=== PATIENT | male | born 1975 | race Two or more races ===

== ENCOUNTER 2019-05-22 18:23 | Inpatient (IN) | payer OTHER, MEDICAID ==
[~2019-05-22] VITALS: Ht 177.8 cm; Wt 62.8 kg
[~2019-05-22 18:23] MED LIST: Amikacin 950 MG in NS 110 ML IV SCH
[2019-05-22 18:25] VITALS: BP 80/40
[2019-05-22] MEDS ORDERED: OMEPRAZOLE40 M1 ORAL (18:40)
[2019-05-22] MEDS ORDERED: HALOPERIDOL5 MG ORAL (18:40)
[2019-05-22] MEDS ORDERED: BENZTROPINE ME0.5 MG PO (18:40)
[2019-05-22] MEDS ORDERED: FERROUS SULFAT325 MG ORAL (18:40)
[2019-05-22] MEDS ORDERED: ZYPREXA10 MG ORAL (18:40)
[2019-05-22] MEDS ORDERED: BACLOFEN10 MG ORAL (18:40)
[2019-05-22] MEDS ORDERED: ATIVAN0.5 MG ORAL (18:40)
[2019-05-22] MEDS ORDERED: Piperacillin/Tazobactam 3.375 GM in NS 110 ML IVPB ONE (18:45)
[2019-05-22 18:57] LABS: HEMATOCRIT 30.9 % (42.0-52.0); HEMOGLOBIN 10.6 G/DL (14.2-18.0); MEAN CORPUSCULAR VOLUME 91 FL (80-99); PLATELET COUNT 90 K/UL (150-450); RED BLOOD COUNT 3.38 M/UL (4.70-6.10); RED CELL DISTRIBUTION WIDTH 15.1 % (11.6-14.8); WHITE BLOOD COUNT 12.8 K/UL (4.8-10.8)
[2019-05-22 19:03] LABS: ANION GAP 10 mmol/L (5-15); BLOOD UREA NITROGEN 15 mg/dL (7-18); CALCIUM 8.1 MG/DL (8.5-10.1); CARBON DIOXIDE 24 MMOL/L (21-32); CHLORIDE 103 MMOL/L (98-107); CREATININE 1.4 MG/DL (0.55-1.30); POTASSIUM 3.4 MMOL/L (3.5-5.1); SODIUM 137 MMOL/L (136-145)
--- NOTE | 2019-05-22 19:08 | Diagnostic Imaging Report ---
Indications: Syncope, headache Technique: Spiral acquisitions obtained through the brain. Angled axial and coronal 5 x 5 mm slices were reconstructed. Total dose length product 1304 mGycm. CTDI vol(s) 6 mGy. Dose reduction achieved using automated exposure control Comparison: None. Findings: No acute intracranial hemorrhage or edema. No mass effect nor midline shift. Normal curyr-white differentiation. Normal size ventricles and extra-axial CSF spaces. The calvarium is intact. There is right ethmoid and bilateral sphenoid sinus disease. The mastoids are clear. Skin bashir overlie the right posterior parietal scalp. The visualized orbits are unremarkable. Impression: Evidence of right parietal scalp laceration Negative for acute intracranial bleed or mass effect Sinus disease This agrees with the preliminary interpretation provided overnight by [facility]. The CT scanner at [facility] is accredited by the [employer] and the scans are performed using protocols designed to limit radiation exposure to as low as reasonably achievable to attain images of sufficient resolution adequate for diagnostic evaluation.
[2019-05-22 19:09] LABS: INR 1.1 (0.9-1.1)
[2019-05-22 19:12] LABS: ALANINE AMINOTRANSFERASE 15 U/L (12-78); ALBUMIN 3.2 G/DL (3.4-5.0); ALBUMIN/GLOBULIN RATIO 0.8 (1.0-2.7); ALKALINE PHOSPHATASE 74 U/L (46-116); ASPARTATE AMINO TRANSFERASE 16 U/L (15-37); BILIRUBIN,TOTAL 1.2 MG/DL (0.2-1.0)
[2019-05-22 19:14] LABS: CREATINE KINASE 46 U/L (26-308)
[2019-05-22 19:23] LABS: BILIRUBIN,DIRECT 0.3 MG/DL (0.0-0.3)
--- NOTE | 2019-05-22 20:12 | Emergency Room Report ---
History of Present Illness General Chief Complaint: Fever Source: Patient (Celsa Wiggins) Present Illness HPI 44-year-old male with history of schizophrenia currently living in assisted living brought in by paramedics due to 2 episodes of syncope today and 1 week prior, fever of 103 F, tachycardia. According to the paramedics patient started wandering around and walking to the street from assisted living earlier today were police officers were called in and asked to call the paramedics and bring the patient into the hospital due to syncope, elevated temperature, tachycardia. Patient has not communicate well when asked questions and is not a good historian. Diaphoresis noted. No obvious wounds or signs of trauma noted. (Celsa Wiggins) Allergies: Coded Allergies: No Known Allergies (Unverified , 05/22/19) Patient History Past Medical History: see triage record Past Surgical History: unable to obtain Pertinent Family History: unable to obtain Immunizations: UTD Reviewed Nursing Documentation: PMH: Agreed; PSxH: Agreed (Celsa Wiggins) Nursing Documentation-PMH Past Medical History: No History, Except For History Of Psychiatric Problem: Yes (Celsa Wiggins) Review of Systems All Other Systems: negative except mentioned in HPI (Celsa Wiggins) Physical Exam Vital Signs Date Time Temp Pulse Resp B/P (MAP) Pulse Ox O2 Delivery O2 Flow Rate FiO2 05/22/19 18:16 103.1 130 20 80/40 (53) 98 Room Air Sp02 EP Interpretation: abnormal - Temperature 103 F, heart rate 130 General Appearance: alert, moderate distress, thin Head: normocephalic, atraumatic Eyes: bilateral eye normal inspection, bilateral eye PERRL ENT: hearing grossly normal, normal pharynx, no angioedema, normal voice Neck: full range of motion, supple, no meningismus, supple/symm/no masses Respiratory: chest non-tender, lungs clear, normal breath sounds, no rhonchi, no wheezing, speaking full sentences Cardiovascular #1: no murmur, normal capillary refill, tachycardia Cardiovascular #2: 2+ carotid (R), 2+ carotid (L); 3+ radial (R), 3+ radial (L) Gastrointestinal: normal bowel sounds, non tender, soft, non-distended, no guarding, no rebound Rectal: deferred Genitourinary: normal inspection, no CVA tenderness Musculoskeletal: back normal, digits/nails normal, no calf tenderness Neurologic: alert, oriented Psychiatric: anxious Skin: no rash, normal color, diaphoresis Lymphatic: no adenopathy (Celsa Wiggins) Procedures Critical Care Time Critical Care Time Patient had a critical medical condition which untreated could potentially result in life or limb threatening injury. Total critical care time excluding procedures approximately 45 minutes. (Xavi Fernandez MD) Central Line Central Line : Consent: Emergent Central Line Lumen: triple Maximal Sterile Barrier Tech: yes cap, yes mask, yes sterile gown, yes sterile gloves, yes large sterile sheet, yes hand hygiene, yes chlorhexidine prep Central Line Postion: internal jugular (R) Anesthesia: Lidocaine cc's of anesthesia: 3 Complications: none Central Line Post Position: sutured, good blood return, position confirmed w / CXR Attempts: One Patient Tolerated: Well Complications: None (Xavi Fernandez MD) Medical Decision Making PA Attestation All my diagnosis and treatment plans were reviewed ad discussed with my supervising physician Dr. Fernandez (Celsa Wiggins) Diagnostic Impression: Primary Impression: Sepsis Additional Impressions: Syncope Tachycardia ER Course 44-year-old male with history of schizophrenia currently living in assisted living brought in by paramedics due to 2 episodes of syncope today and 1 week prior, fever of 103 F, tachycardia. According to the paramedics patient started wandering around and walking to the street from assisted living earlier today were police officers were called in and asked to call the paramedics and bring the patient into the hospital due to syncope, elevated temperature, tachycardia. Patient has not communicate well when asked questions and is not a good historian. Diaphoresis noted. No obvious wounds or signs of trauma noted. Ddx considered but are not limited to: [place], sepsis, tachycardia unspecified, syncope, pneumonia Vital signs: are WNL, pt. is febrile H&PE are most consistent with tachycardia and sepsis ORDERS: EKG, Chest XR, cardiac labs(troponin, CBC, CMP,, BNP) ED INTERVENTIONS: 2 L of NS bolus, Motrin, Zosyn Patient was admitted with diagnosis of tachycardia/sepsis/syncope to Dr. Nunn under supervision of : Jim pt stable at time of admission (Celsa Wiggins) ER Course Patient was noted to have a sepsis without any definite source. Chest x-ray showed some evidence of Right upper lobe atelectasis and possible infiltrate. Patient was given empiric antibiotics. Dr. Junior nunn was contacted for inpatient management due to continued hypotension and need for further ICU management. Labs Test 05/22/19 18:26 05/22/19 18:33 05/22/19 21:46 05/22/19 22:00 Sodium Level 137 MMOL/L (136-145) Potassium Level 3.4 MMOL/L (3.5-5.1) Chloride Level 103 MMOL/L (98-107) Carbon Dioxide Level 24 MMOL/L (21-32) Anion Gap 10 mmol/L (5-15) Blood Urea Nitrogen 15 mg/dL (7-18) Creatinine 1.4 MG/DL (0.55-1.30) Estimat Glomerular Filtration Rate 54.6 mL/min (>60) Glucose Level 111 MG/DL (74-106) Calcium Level 8.1 MG/DL (8.5-10.1) Total Bilirubin 1.2 MG/DL (0.2-1.0) Direct Bilirubin 0.3 MG/DL (0.0-0.3) Aspartate Amino Transf (AST/SGOT) 16 U/L (15-37) Alanine Aminotransferase (ALT/SGPT) 15 U/L (12-78) Alkaline Phosphatase 74 U/L (46-116) Total Protein 7.0 G/DL (6.4-8.2) Albumin 3.2 G/DL (3.4-5.0) Globulin 3.8 g/dL Albumin/Globulin Ratio 0.8 (1.0-2.7) White Blood Count 12.8 K/UL (4.8-10.8) Red Blood Count 3.38 M/UL (4.70-6.10) Hemoglobin 10.6 G/DL (14.2-18.0) Hematocrit 30.9 % (42.0-52.0) Mean Corpuscular Volume 91 FL (80-99) Mean Corpuscular Hemoglobin 31.4 PG (27.0-31.0) Mean Corpuscular Hemoglobin Concent 34.4 G/DL (32.0-36.0) Red Cell Distribution Width 15.1 % (11.6-14.8) Platelet Count 90 K/UL (150-450) Mean Platelet Volume 8.3 FL (6.5-10.1) Neutrophils (%) (Auto) % (45.0-75.0) Lymphocytes (%) (Auto) % (20.0-45.0) Monocytes (%) (Auto) % (1.0-10.0) Eosinophils (%) (Auto) % (0.0-3.0) Basophils (%) (Auto) % (0.0-2.0) Differential Total Cells Counted 100 Neutrophils % (Manual) 79 % (45-75) Lymphocytes % (Manual) 13 % (20-45) Monocytes % (Manual) 1 % (1-10) Eosinophils % (Manual) 0 % (0-3) Basophils % (Manual) 1 % (0-2) Band Neutrophils 6 % (0-8) Platelet Estimate Decreased Platelet Morphology Normal Hypochromasia 1+ Anisocytosis 1+ Prothrombin Time 11.6 SEC (9.30-11.50) Prothromb Time International Ratio 1.1 (0.9-1.1) Activated Partial Thromboplast Time 31 SEC (23-33) Total Creatine Kinase 46 U/L (26-308) Troponin I 0.000 ng/mL (0.000-0.056) Pro-B-Type Natriuretic Peptide 1128 pg/mL (0-125) Urine Color Yellow Urine Appearance Slightly cloudy Urine pH 7 (4.5-8.0) Urine Specific [place] 1.005 (1.005-1.035) Urine Protein 1+ (NEGATIVE) Urine Glucose (UA) Negative (NEGATIVE) Urine Ketones Negative (NEGATIVE) Urine Blood Negative (NEGATIVE) Urine Nitrite Negative (NEGATIVE) Urine Bilirubin Negative (NEGATIVE) Urine Urobilinogen 1 MG/DL (0.0-1.0) Urine Leukocyte Esterase 1+ (NEGATIVE) Urine RBC 0-2 /HPF (0 - 0) Urine WBC 10-15 /HPF (0 - 0) Urine Squamous Epithelial Cells Occasional /LPF Urine Bacteria Many /HPF (NONE) Urine Opiates Screen Negative (NEGATIVE) Urine Barbiturates Screen Negative (NEGATIVE) Phencyclidine (PCP) Screen Negative (NEGATIVE) Urine Amphetamines Screen Negative (NEGATIVE) Urine Benzodiazepines Screen Negative (NEGATIVE) Urine Cocaine Screen Negative (NEGATIVE) Urine Marijuana (THC) Screen Negative (NEGATIVE) Lactic Acid Level 1.90 mmol/L (0.66-2.22) (Xavi Fernandez MD) EKG Diagnostic Results Rate: tachycardiac Rhythm: other - tachy ST Segments: no acute changes Other Impression No acute ST changes, no QT prolongation (Celsa Wiggins) Chest X-Ray Diagnostic Results Chest X-Ray Diagnostic Results : Chest X-Ray Ordered: Yes # of Views/Limited/Complete: 1 View Indication: Shortness of Breath EP Interpretation: Yes PA Xray: Interpretation reviewed, by supervising MD, and agrees with findings. Interpretation: no consolidation, no effusion, no pneumothorax Impression: No acute disease Electronically Signed by: Celsa Grossman PA-C (Celsa Wiggins) CT/MRI/US Diagnostic Results CT/MRI/US Diagnostic Results : Imaging Test Ordered: Head CT no contrast Impression No intracranial hemorrhage, within normal limits (Celsa Wiggins) Last Vital Signs Date Time Temp Pulse Resp B/P (MAP) Pulse Ox O2 Delivery O2 Flow Rate FiO2 05/22/19 18:25 130 20 Room Air 05/22/19 18:25 102.8 80/40 98 (Celsa Wiggins) Status: unchanged (Xavi Fernandez MD) Disposition: ADMITTED INPATIENT Condition: Critical Referrals: NOT CHOSEN IPA/,REFERRING (PCP) Celsa Wiggins May 22, 2019 20:12 Xavi Fernandez MD May 22, 2019 22:55
[2019-05-22 21:20] VITALS: BP 81/44
[2019-05-22 22:00] LABS: BILIRUBIN, URINE NEGATIVE (NEGATIVE); GLUCOSE, URINE (UA) NEGATIVE (NEGATIVE); KETONES,URINE NEGATIVE (NEGATIVE); LEUKOCYTE ESTERASE ,URINE 1+ (NEGATIVE); NITRITE,URINE NEGATIVE (NEGATIVE); PH,URINE 7 (4.5-8.0); PROTEIN,URINE 1+ (NEGATIVE); UROBILINOGEN,URINE 1 MG/DL (0.0-1.0)
[2019-05-22 22:01] LABS: APPEARANCE,URINE SLIGHTLY CLOUDY; COLOR,URINE YELLOW
[2019-05-22] MEDS ORDERED: Hydrocortisone 100mg Inj IV ONE (22:15)
[2019-05-22] MEDS ORDERED: Thiamine HCl 100 MG in D5W 55 ML IVPB ONE (22:15)
[2019-05-22] MEDS ORDERED: Lidocaine 1% Plain 30 ml INJ ONE ×2 (22:31→23:00)
[2019-05-22] MEDS ORDERED: Albuterol/Ipratropium 3ml neb HHN PRN (23:15)
--- NOTE | 2019-05-22 23:31 | Diagnostic Imaging Report ---
Indication: Chest pain Technique: One view of the chest Comparison: 5 hours earlier Findings: Interim placement right jugular central venous catheter, tip of which projects at the level of the cavoatrial junction. No pneumothorax. Right upper lobe infiltrate is again demonstrated. Impression: Satisfactory right jugular central line placement. No radiographically evident complication Persistent right upper lobe hazy infiltrate
[2019-05-23] VITALS (23 sets, daily range): BP systolic 96–119; BP diastolic 60–86
[2019-05-23] MEDS ORDERED: Ertapenem 1 GM in NS 55 ML IV SCH (01:00)
[2019-05-23] MEDS ORDERED: Vancomycin 1 GM in D5W 275 ML IVPB SCH (02:00)
[2019-05-23] MEDS ORDERED: Amikacin Rx to dose MISC PRN (03:45)
[2019-05-23] MEDS ORDERED: Amikacin 950 MG in NS 110 ML IV SCH (04:30)
[2019-05-23 06:19] LABS: HEMATOCRIT 28.4 % (42.0-52.0); HEMOGLOBIN 9.9 G/DL (14.2-18.0); MEAN CORPUSCULAR VOLUME 92 FL (80-99); PLATELET COUNT 63 K/UL (150-450); RED CELL DISTRIBUTION WIDTH 15.3 % (11.6-14.8); WHITE BLOOD COUNT 16.9 K/UL (4.8-10.8)
[2019-05-23] MEDS ORDERED: Pantoprazole Inj IVP SCH (06:30)
[2019-05-23 06:41] LABS: ALANINE AMINOTRANSFERASE 8 U/L (12-78); ALBUMIN 2.6 G/DL (3.4-5.0); ALBUMIN/GLOBULIN RATIO 0.8 (1.0-2.7); ALKALINE PHOSPHATASE 63 U/L (46-116); ANION GAP 11 mmol/L (5-15); ASPARTATE AMINO TRANSFERASE 20 U/L (15-37); BILIRUBIN,DIRECT 0.3 MG/DL (0.0-0.3); BILIRUBIN,TOTAL 0.9 MG/DL (0.2-1.0); BLOOD UREA NITROGEN 14 mg/dL (7-18); CALCIUM 7.2 MG/DL (8.5-10.1); CARBON DIOXIDE 20 MMOL/L (21-32); CHLORIDE 113 MMOL/L (98-107); CREATININE 1.1 MG/DL (0.55-1.30); POTASSIUM 3.3 MMOL/L (3.5-5.1); SODIUM 144 MMOL/L (136-145)
[2019-05-23] MEDS ORDERED: Heparin 5000 units/ml inj SUBQ SCH (09:00)
--- NOTE | 2019-05-23 11:02 | Consultation ---
History of Present Illness General Date patient seen: May 23, 2019 Chief Complaint: Fever Present Illness HPI 44-year-old male with history of schizophrenia brought in by paramedics with CC of syncope, fever of 103 F, tachycardia and confusion. Pt had elevated temperature, tachycardia in ER. He was also hypotensive was started on Levophed drip and transferred to ICU. Allergies: Coded Allergies: No Known Allergies (Unverified , 05/22/19) Medication History Scheduled Baclofen* (Baclofen*), 10 MG ORAL THREE TIMES A DAY, (Reported) Ferrous Sulfate* (Ferrous Sulfate*), 325 MG ORAL DAILY, (Reported) Lorazepam* (Ativan*), 0.5 MG ORAL THREE TIMES A DAY, (Reported) Olanzapine* (Zyprexa*), 20 MG ORAL DAILY, (Reported) Omeprazole (Omeprazole), 40 MG ORAL DAILY, (Reported) Miscellaneous Medications Benztropine Mesylate* (Cogentin*), 1 MG PO, (Reported) Haloperidol (Haloperidol), 5 MG ORAL, (Reported) Patient History Healthcare decision maker Resuscitation status Full Code Advanced Directive on File No Past Medical/Surgical History Past Medical/Surgical History: (1) Schizophrenia Review of Systems All Other Systems: negative except mentioned in HPI Physical Exam General Appearance: thin Lines, tubes and drains: central line HEENT: normocephalic, atraumatic Neck: non-tender, normal alignment Respiratory/Chest: chest wall non-tender, rhonchi - right Cardiovascular/Chest: normal peripheral pulses, normal rate Abdomen: normal bowel sounds, non tender Extremities: normal range of motion, non-tender Skin Exam: normal pigmentation 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 grossly normal Last 24 Hour Vital Signs Date Time Temp Pulse Resp B/P (MAP) Pulse Ox O2 Delivery O2 Flow Rate FiO2 05/23/19 10:30 59 26 100/70 (80) 100 05/23/19 10:00 59 26 101/65 (77) 100 05/23/19 09:00 63 23 98/64 (75) 100 05/23/19 08:45 56 20 110/73 (85) 100 05/23/19 08:30 52 19 110/73 (85) 100 05/23/19 08:15 51 23 96/60 (72) 100 05/23/19 08:00 50 23 96/66 (76) 100 05/23/19 08:00 Room Air 2.0 05/23/19 07:45 53 22 115/72 (86) 99 05/23/19 07:00 42 14 108/68 (81) 100 05/23/19 07:00 108/68 05/23/19 06:30 110/66 05/23/19 06:30 55 20 110/66 (81) 100 05/23/19 06:05 119/80 05/23/19 06:00 46 05/23/19 06:00 97.5 45 16 119/80 (93) 100 05/23/19 06:00 Room Air 2.0 05/23/19 06:00 Nasal Cannula 2.0 05/23/19 05:25 96.9 52 20 123/93 100 Nasal Cannula 2.0 05/23/19 05:10 123/93 05/23/19 05:05 120/77 05/23/19 05:00 112/75 05/23/19 04:55 106/72 05/23/19 04:50 107/72 05/23/19 04:45 113/64 05/23/19 04:40 109/78 05/23/19 04:38 109/78 05/23/19 04:35 111/76 05/23/19 04:30 118/72 05/23/19 04:25 124/75 05/23/19 04:20 96/63 05/23/19 04:16 96.9 52 20 96/63 100 Nasal Cannula 2.0 05/23/19 04:15 101/68 05/23/19 04:10 116/72 05/23/19 04:05 110/71 05/23/19 04:00 127/85 05/23/19 03:55 129/86 05/23/19 03:50 136/75 05/23/19 03:45 132/76 05/23/19 03:40 140/87 05/23/19 03:35 137/81 05/23/19 03:30 106/71 05/23/19 03:25 108/71 05/23/19 03:20 104/70 05/23/19 03:15 108/68 05/23/19 03:10 106/67 05/23/19 03:05 108/68 05/23/19 03:00 105/70 05/23/19 02:53 97.8 47 20 107/68 100 Nasal Cannula 2.0 05/23/19 02:50 107/68 05/23/19 02:45 110/67 05/23/19 02:40 107/67 05/23/19 02:35 106/64 05/23/19 02:30 106/70 05/23/19 02:25 106/73 05/23/19 02:20 105/68 05/23/19 02:15 106/78 05/23/19 02:11 105/76 05/23/19 02:10 108/66 05/23/19 02:05 110/70 05/23/19 02:00 107/74 05/23/19 01:58 97.8 55 21 112/73 99 Nasal Cannula 2.0 05/23/19 01:55 112/73 05/23/19 01:50 132/79 05/23/19 01:45 85/72 05/23/19 01:40 113/60 05/23/19 01:35 112/73 05/23/19 01:30 110/70 05/23/19 01:25 107/69 05/23/19 01:20 107/69 05/23/19 01:15 104/62 05/23/19 01:10 104/67 05/23/19 01:05 101/05/23/19 01:03 106/84 05/23/19 01:00 101/61 05/23/19 00:55 100/63 05/23/19 00:50 103/62 05/23/19 00:45 102/66 05/23/19 00:45 102/62 05/23/19 00:40 103/61 05/23/19 00:35 106/65 05/23/19 00:30 102/60 05/23/19 00:25 103/62 05/23/19 00:20 100/82 05/23/19 00:15 100.9 70 25 103/66 97 Nasal Cannula 2.0 05/23/19 00:15 97/65 05/23/19 00:10 101/66 05/23/19 00:05 103/66 05/23/19 00:00 102/63 05/22/19 23:55 94/60 05/22/19 23:50 97/61 05/22/19 23:45 93/57 05/22/19 23:40 90/60 05/22/19 23:35 99/56 05/22/19 23:30 88/59 05/22/19 23:25 81/54 05/22/19 23:20 77/49 05/22/19 23:16 82/53 05/22/19 23:15 108/66 05/22/19 21:20 100.9 100 16 81/44 100 Nasal Cannula 2.0 05/22/19 19:23 103.1 05/22/19 18:25 130 20 Room Air 05/22/19 18:25 102.8 20 80/40 98 Room Air 05/22/19 18:16 103.1 130 20 80/40 (53) 98 Room Air Intake and Output 05/22/19 05/23/19 19:00 07:00 Intake Total 0 ml 4080.42 ml Output Total 2020 ml Balance 0 ml 2060.42 ml Intake Oral 0 ml IV Total 4080.42 ml Output Urine Total 2020 ml Laboratory Tests Test 05/22/19 18:26 05/22/19 18:33 05/22/19 21:46 05/22/19 22:00 Sodium Level 137 MMOL/L (136-145) Potassium Level 3.4 MMOL/L (3.5-5.1) L Chloride Level 103 MMOL/L (98-107) Carbon Dioxide Level 24 MMOL/L (21-32) Anion Gap 10 mmol/L (5-15) Blood Urea Nitrogen 15 mg/dL (7-18) Creatinine 1.4 MG/DL (0.55-1.30) H Estimat Glomerular Filtration Rate 54.6 mL/min (>60) Glucose Level 111 MG/DL (74-106) H Calcium Level 8.1 MG/DL (8.5-10.1) L Total Bilirubin 1.2 MG/DL (0.2-1.0) H Direct Bilirubin 0.3 MG/DL (0.0-0.3) Aspartate Amino Transf (AST/SGOT) 16 U/L (15-37) Alanine Aminotransferase (ALT/SGPT) 15 U/L (12-78) Alkaline Phosphatase 74 U/L (46-116) Total Protein 7.0 G/DL (6.4-8.2) Albumin 3.2 G/DL (3.4-5.0) L Globulin 3.8 g/dL Albumin/Globulin Ratio 0.8 (1.0-2.7) L White Blood Count 12.8 K/UL (4.8-10.8) H Red Blood Count 3.38 M/UL (4.70-6.10) L Hemoglobin 10.6 G/DL (14.2-18.0) L Hematocrit 30.9 % (42.0-52.0) L Mean Corpuscular Volume 91 FL (80-99) Mean Corpuscular Hemoglobin 31.4 PG (27.0-31.0) H Mean Corpuscular Hemoglobin Concent 34.4 G/DL (32.0-36.0) Red Cell Distribution Width 15.1 % (11.6-14.8) H Platelet Count 90 K/UL (150-450) L Mean Platelet Volume 8.3 FL (6.5-10.1) Neutrophils (%) (Auto) % (45.0-75.0) Lymphocytes (%) (Auto) % (20.0-45.0) Monocytes (%) (Auto) % (1.0-10.0) Eosinophils (%) (Auto) % (0.0-3.0) Basophils (%) (Auto) % (0.0-2.0) Differential Total Cells Counted 100 Neutrophils % (Manual) 79 % (45-75) H Lymphocytes % (Manual) 13 % (20-45) L Monocytes % (Manual) 1 % (1-10) Eosinophils % (Manual) 0 % (0-3) Basophils % (Manual) 1 % (0-2) Band Neutrophils 6 % (0-8) Platelet Estimate Decreased L Platelet Morphology Normal Hypochromasia 1+ Anisocytosis 1+ Prothrombin Time 11.6 SEC (9.30-11.50) H Prothromb Time International Ratio 1.1 (0.9-1.1) Activated Partial Thromboplast Time 31 SEC (23-33) Lactic Acid Level 2.50 mmol/L (0.4-2.0) H 1.90 mmol/L (0.66-2.22) Total Creatine Kinase 46 U/L (26-308) Troponin I 0.000 ng/mL (0.000-0.056) Pro-B-Type Natriuretic Peptide 1128 pg/mL (0-125) H Urine Color Yellow Urine Appearance Slightly cloudy Urine pH 7 (4.5-8.0) Urine Specific [place] 1.005 (1.005-1.035) Urine Protein 1+ (NEGATIVE) H Urine Glucose (UA) Negative (NEGATIVE) Urine Ketones Negative (NEGATIVE) Urine Blood Negative (NEGATIVE) Urine Nitrite Negative (NEGATIVE) Urine Bilirubin Negative (NEGATIVE) Urine Urobilinogen 1 MG/DL (0.0-1.0) H Urine Leukocyte Esterase 1+ (NEGATIVE) H Urine RBC 0-2 /HPF (0 - 0) H Urine WBC 10-15 /HPF (0 - 0) H Urine Squamous Epithelial Cells Occasional /LPF Urine Bacteria Many /HPF (NONE) H Urine Opiates Screen Negative (NEGATIVE) Urine Barbiturates Screen Negative (NEGATIVE) Phencyclidine (PCP) Screen Negative (NEGATIVE) Urine Amphetamines Screen Negative (NEGATIVE) Urine Benzodiazepines Screen Negative (NEGATIVE) Urine Cocaine Screen Negative (NEGATIVE) Urine Marijuana (THC) Screen Negative (NEGATIVE) Test 05/23/19 05:40 05/23/19 09:18 White Blood Count 16.9 K/UL (4.8-10.8) H Red Blood Count 3.10 M/UL (4.70-6.10) L Hemoglobin 9.9 G/DL (14.2-18.0) L Hematocrit 28.4 % (42.0-52.0) L Mean Corpuscular Volume 92 FL (80-99) Mean Corpuscular Hemoglobin 32.1 PG (27.0-31.0) H Mean Corpuscular Hemoglobin Concent 35.0 G/DL (32.0-36.0) Red Cell Distribution Width 15.3 % (11.6-14.8) H Platelet Count 63 K/UL (150-450) L Mean Platelet Volume 6.8 FL (6.5-10.1) Neutrophils (%) (Auto) % (45.0-75.0) Lymphocytes (%) (Auto) % (20.0-45.0) Monocytes (%) (Auto) % (1.0-10.0) Eosinophils (%) (Auto) % (0.0-3.0) Basophils (%) (Auto) % (0.0-2.0) Differential Total Cells Counted 100 Neutrophils % (Manual) 88 % (45-75) H Lymphocytes % (Manual) 4 % (20-45) L Monocytes % (Manual) 2 % (1-10) Eosinophils % (Manual) 0 % (0-3) Basophils % (Manual) 0 % (0-2) Band Neutrophils 6 % (0-8) Platelet Estimate Decreased L Platelet Morphology Normal Anisocytosis 1+ Sodium Level 144 MMOL/L (136-145) Potassium Level 3.3 MMOL/L (3.5-5.1) L Chloride Level 113 MMOL/L (98-107) H Carbon Dioxide Level 20 MMOL/L (21-32) L Anion Gap 11 mmol/L (5-15) Blood Urea Nitrogen 14 mg/dL (7-18) Creatinine 1.1 MG/DL (0.55-1.30) Estimat Glomerular Filtration Rate > 60 mL/min (>60) Glucose Level 128 MG/DL (74-106) H Calcium Level 7.2 MG/DL (8.5-10.1) L Total Bilirubin 0.9 MG/DL (0.2-1.0) Direct Bilirubin 0.3 MG/DL (0.0-0.3) Aspartate Amino Transf (AST/SGOT) 20 U/L (15-37) Alanine Aminotransferase (ALT/SGPT) 8 U/L (12-78) L Alkaline Phosphatase 63 U/L (46-116) Total Protein 5.7 G/DL (6.4-8.2) L Albumin 2.6 G/DL (3.4-5.0) L Globulin 3.1 g/dL Albumin/Globulin Ratio 0.8 (1.0-2.7) L Arterial Blood pH 7.439 (7.350-7.450) Arterial Blood Partial Pressure CO2 28.4 mmHg (35.0-45.0) L Arterial Blood Partial Pressure O2 121.8 mmHg (75.0-100.0) H Arterial Blood HCO3 18.8 mmol/L (22.0-26.0) L Arterial Blood Oxygen Saturation 97.7 % (95-100) Arterial Blood Base Excess -4.4 (-2-2) L Bola Test Positive Microbiology Date/Time Source Procedure Growth Status 05/22/19 18:33 Nasal Nares - Final Complete 05/22/19 18:33 Nasal Nares - Final Complete Height (Feet): 5 Height (Inches): 10.00 Weight (Pounds): 148 Medications Current Medications Medications (Trade) Dose Ordered Sig/Ana Route PRN Reason Start Time Stop Time Status Last Admin Dose Admin Acetaminophen (Tylenol) 650 mg Q4H PRN ORAL fever 05/22/19 23:15 06/21/19 23:14 Albuterol/ Ipratropium (Albuterol/ Ipratropium) 3 ml EVERY 4 HOURS PRN HHN Shortness of Breath 05/22/19 23:15 05/27/19 23:14 Amikacin Protocol (Amikacin pharmacy to dose) 1 ea DAILY PRN MISC SEPSIS 05/23/19 03:45 06/22/19 03:44 Amikacin Sulfate 950 mg/Sodium Chloride 113.8 ml @ 113.8 mls/ hr Q36H IV 05/23/19 04:30 05/30/19 04:29 05/23/19 04:38 Heparin Sodium (Porcine) (Heparin 5000 units/ml) 5,000 units EVERY 12 HOURS SUBQ 05/23/19 09:00 06/22/19 08:59 Norepinephrine Bitartrate 4 mg/ Dextrose 254 ml @ 0 mls/hr Q24H IV 05/22/19 23:15 06/21/19 23:14 05/23/19 06:05 Ondansetron HCl (Zofran) 4 mg Q6H PRN IVP Nausea & Vomiting 05/22/19 23:15 06/21/19 23:14 Pantoprazole (Protonix) 40 mg DAILY@0630 IVP 05/23/19 06:30 06/22/19 06:29 05/23/19 06:05 Potassium Chloride (K-Dur) 40 meq ONCE ORAL 05/23/19 09:15 05/23/19 11:00 05/23/19 10:20 Sodium Chloride 1,000 ml @ 100 mls/hr Q10H IVLG 05/22/19 23:12 06/21/19 23:11 05/23/19 10:19 Sodium Chloride 1,000 ml @ 200 mls/hr Q5H IV 05/23/19 01:15 06/22/19 01:14 05/23/19 01:23 Vancomycin HCl (Vanco rx to dose) 1 ea DAILY PRN MISC SEPSIS 05/23/19 03:45 06/22/19 03:44 Vancomycin HCl 750 mg/Sodium Chloride 275 ml @ 183.333 mls/hr Q12H IVPB 05/23/19 14:00 05/28/19 13:59 Assessment/Plan Problem List: (1) Sepsis ICD Codes: A41.9 - Sepsis, unspecified organism SNOMED: 26304488 (2) Pneumonia ICD Codes: J18.9 - Pneumonia, unspecified organism SNOMED: 422011025 (3) Schizophrenia ICD Codes: F20.9 - Schizophrenia, unspecified SNOMED: 42345842 Assessment/Plan: iv fluids iv abx check cultures sputum c/s ID evaluation start feeding dvt prophylaxis. Yung Daniels MD May 23, 2019 11:02
[2019-05-23] MEDS ORDERED: Promethazine/Codeine 5ml UD ORAL PRN ×2 (11:15→17:15)
--- NOTE | 2019-05-23 11:25 | Consultation ---
History of Present Illness General Date patient seen: May 23, 2019 Chief Complaint: Fever Present Illness HPI 44-year-old male with history of schizophrenia, assisted living facility resident presented to ED on 05/22/19 2 episodes of syncope, fever up to 103, tachycardia. According to the paramedics patient started wandering around and walking to the street from assisted living. Allergies: Coded Allergies: No Known Allergies (Unverified , 05/22/19) Medication History Scheduled Baclofen* (Baclofen*), 10 MG ORAL THREE TIMES A DAY, (Reported) Ferrous Sulfate* (Ferrous Sulfate*), 325 MG ORAL DAILY, (Reported) Lorazepam* (Ativan*), 0.5 MG ORAL THREE TIMES A DAY, (Reported) Olanzapine* (Zyprexa*), 20 MG ORAL DAILY, (Reported) Omeprazole (Omeprazole), 40 MG ORAL DAILY, (Reported) Miscellaneous Medications Benztropine Mesylate* (Cogentin*), 1 MG PO, (Reported) Haloperidol (Haloperidol), 5 MG ORAL, (Reported) Patient History Healthcare decision maker Resuscitation status Full Code Advanced Directive on File No Patient History Narrative PMhx: as above Shx: reviewed Fhx: non contributory Review of Systems All Other Systems: negative except mentioned in HPI Physical Exam Physical Exam Narrative General Appearance: alert, moderate distress, thin Head: normocephalic, atraumatic Eyes: bilateral eye normal inspection, bilateral eye PERRL ENT: hearing grossly normal, normal pharynx, no angioedema, normal voice Neck: full range of motion, supple, no meningismus, supple/symm/no masses Respiratory: chest non-tender, lungs clear, normal breath sounds, no rhonchi, no wheezing, speaking full sentences Cardiovascular: no murmur, normal capillary refill, tachycardia Gastrointestinal: normal bowel sounds, non tender, soft, non-distended, no guarding, no rebound Genitourinary: normal inspection, no CVA tenderness Musculoskeletal: back normal, digits/nails normal, no calf tenderness Neurologic: alert, oriented Skin: no rash, normal color, diaphoresis Last 24 Hour Vital Signs Date Time Temp Pulse Resp B/P (MAP) Pulse Ox O2 Delivery O2 Flow Rate FiO2 05/23/19 10:30 59 26 100/70 (80) 100 05/23/19 10:00 59 26 101/65 (77) 100 05/23/19 09:00 63 23 98/64 (75) 100 05/23/19 08:45 56 20 110/73 (85) 100 05/23/19 08:30 52 19 110/73 (85) 100 05/23/19 08:15 51 23 96/60 (72) 100 05/23/19 08:00 50 23 96/66 (76) 100 05/23/19 08:00 Room Air 2.0 05/23/19 07:45 53 22 115/72 (86) 99 05/23/19 07:00 42 14 108/68 (81) 100 05/23/19 07:00 108/68 05/23/19 06:30 110/66 05/23/19 06:30 55 20 110/66 (81) 100 05/23/19 06:05 119/80 05/23/19 06:00 46 05/23/19 06:00 97.5 45 16 119/80 (93) 100 05/23/19 06:00 Room Air 2.0 05/23/19 06:00 Nasal Cannula 2.0 05/23/19 05:25 96.9 52 20 123/93 100 Nasal Cannula 2.0 05/23/19 05:10 123/93 05/23/19 05:05 120/77 05/23/19 05:00 112/75 05/23/19 04:55 106/72 05/23/19 04:50 107/72 05/23/19 04:45 113/64 05/23/19 04:40 109/78 05/23/19 04:38 109/78 05/23/19 04:35 111/76 05/23/19 04:30 118/72 05/23/19 04:25 124/75 05/23/19 04:20 96/63 05/23/19 04:16 96.9 52 20 96/63 100 Nasal Cannula 2.0 05/23/19 04:15 101/68 05/23/19 04:10 116/72 05/23/19 04:05 110/71 05/23/19 04:00 127/85 05/23/19 03:55 129/86 05/23/19 03:50 136/75 05/23/19 03:45 132/76 05/23/19 03:40 140/87 05/23/19 03:35 137/81 05/23/19 03:30 106/71 05/23/19 03:25 108/71 05/23/19 03:20 104/70 05/23/19 03:15 108/68 05/23/19 03:10 106/67 05/23/19 03:05 108/68 05/23/19 03:00 105/70 05/23/19 02:53 97.8 47 20 107/68 100 Nasal Cannula 2.0 05/23/19 02:50 107/68 05/23/19 02:45 110/67 05/23/19 02:40 107/67 05/23/19 02:35 106/64 05/23/19 02:30 106/70 05/23/19 02:25 106/73 05/23/19 02:20 105/68 05/23/19 02:15 106/78 05/23/19 02:11 105/76 05/23/19 02:10 108/66 05/23/19 02:05 110/70 05/23/19 02:00 107/74 05/23/19 01:58 97.8 55 21 112/73 99 Nasal Cannula 2.0 05/23/19 01:55 112/73 05/23/19 01:50 132/79 05/23/19 01:45 85/72 05/23/19 01:40 113/60 05/23/19 01:35 112/73 05/23/19 01:30 110/70 05/23/19 01:25 107/69 05/23/19 01:20 107/69 05/23/19 01:15 104/62 05/23/19 01:10 104/67 05/23/19 01:05 101/61 05/23/19 01:03 106/84 05/23/19 01:00 101/61 05/23/19 00:55 100/63 05/23/19 00:50 103/62 05/23/19 00:45 102/66 05/23/19 00:45 102/62 05/23/19 00:40 103/61 05/23/19 00:35 106/65 05/23/19 00:30 102/60 05/23/19 00:25 103/62 05/23/19 00:20 100/82 05/23/19 00:15 100.9 70 25 103/66 97 Nasal Cannula 2.0 05/23/19 00:15 97/65 05/23/19 00:10 101/66 05/23/19 00:05 103/66 05/23/19 00:00 102/63 05/22/19 23:55 94/60 05/22/19 23:50 97/61 05/22/19 23:45 93/57 05/22/19 23:40 90/60 05/22/19 23:35 99/56 05/22/19 23:30 88/59 05/22/19 23:25 81/54 05/22/19 23:20 77/49 05/22/19 23:16 82/53 05/22/19 23:15 108/66 05/22/19 21:20 100.9 100 16 81/44 100 Nasal Cannula 2.0 05/22/19 19:23 103.1 05/22/19 18:25 130 20 Room Air 05/22/19 18:25 102.8 20 80/40 98 Room Air 05/22/19 18:16 103.1 130 20 80/40 (53) 98 Room Air Intake and Output 05/22/19 05/23/19 19:00 07:00 Intake Total 0 ml 4080.42 ml Output Total 2020 ml Balance 0 ml 2060.42 ml Intake Oral 0 ml IV Total 4080.42 ml Output Urine Total 2020 ml Laboratory Tests Test 05/22/19 18:26 05/22/19 18:33 05/22/19 21:46 05/22/19 22:00 Sodium Level 137 MMOL/L (136-145) Potassium Level 3.4 MMOL/L (3.5-5.1) L Chloride Level 103 MMOL/L (98-107) Carbon Dioxide Level 24 MMOL/L (21-32) Anion Gap 10 mmol/L (5-15) Blood Urea Nitrogen 15 mg/dL (7-18) Creatinine 1.4 MG/DL (0.55-1.30) H Estimat Glomerular Filtration Rate 54.6 mL/min (>60) Glucose Level 111 MG/DL (74-106) H Calcium Level 8.1 MG/DL (8.5-10.1) L Total Bilirubin 1.2 MG/DL (0.2-1.0) H Direct Bilirubin 0.3 MG/DL (0.0-0.3) Aspartate Amino Transf (AST/SGOT) 16 U/L (15-37) Alanine Aminotransferase (ALT/SGPT) 15 U/L (12-78) Alkaline Phosphatase 74 U/L (46-116) Total Protein 7.0 G/DL (6.4-8.2) Albumin 3.2 G/DL (3.4-5.0) L Globulin 3.8 g/dL Albumin/Globulin Ratio 0.8 (1.0-2.7) L White Blood Count 12.8 K/UL (4.8-10.8) H Red Blood Count 3.38 M/UL (4.70-6.10) L Hemoglobin 10.6 G/DL (14.2-18.0) L Hematocrit 30.9 % (42.0-52.0) L Mean Corpuscular Volume 91 FL (80-99) Mean Corpuscular Hemoglobin 31.4 PG (27.0-31.0) H Mean Corpuscular Hemoglobin Concent 34.4 G/DL (32.0-36.0) Red Cell Distribution Width 15.1 % (11.6-14.8) H Platelet Count 90 K/UL (150-450) L Mean Platelet Volume 8.3 FL (6.5-10.1) Neutrophils (%) (Auto) % (45.0-75.0) Lymphocytes (%) (Auto) % (20.0-45.0) Monocytes (%) (Auto) % (1.0-10.0) Eosinophils (%) (Auto) % (0.0-3.0) Basophils (%) (Auto) % (0.0-2.0) Differential Total Cells Counted 100 Neutrophils % (Manual) 79 % (45-75) H Lymphocytes % (Manual) 13 % (20-45) L Monocytes % (Manual) 1 % (1-10) Eosinophils % (Manual) 0 % (0-3) Basophils % (Manual) 1 % (0-2) Band Neutrophils 6 % (0-8) Platelet Estimate Decreased L Platelet Morphology Normal Hypochromasia 1+ Anisocytosis 1+ Prothrombin Time 11.6 SEC (9.30-11.50) H Prothromb Time International Ratio 1.1 (0.9-1.1) Activated Partial Thromboplast Time 31 SEC (23-33) Lactic Acid Level 2.50 mmol/L (0.4-2.0) H 1.90 mmol/L (0.66-2.22) Total Creatine Kinase 46 U/L (26-308) Troponin I 0.000 ng/mL (0.000-0.056) Pro-B-Type Natriuretic Peptide 1128 pg/mL (0-125) H Urine Color Yellow Urine Appearance Slightly cloudy Urine pH 7 (4.5-8.0) Urine Specific [place] 1.005 (1.005-1.035) Urine Protein 1+ (NEGATIVE) H Urine Glucose (UA) Negative (NEGATIVE) Urine Ketones Negative (NEGATIVE) Urine Blood Negative (NEGATIVE) Urine Nitrite Negative (NEGATIVE) Urine Bilirubin Negative (NEGATIVE) Urine Urobilinogen 1 MG/DL (0.0-1.0) H Urine Leukocyte Esterase 1+ (NEGATIVE) H Urine RBC 0-2 /HPF (0 - 0) H Urine WBC 10-15 /HPF (0 - 0) H Urine Squamous Epithelial Cells Occasional /LPF Urine Bacteria Many /HPF (NONE) H Urine Opiates Screen Negative (NEGATIVE) Urine Barbiturates Screen Negative (NEGATIVE) Phencyclidine (PCP) Screen Negative (NEGATIVE) Urine Amphetamines Screen Negative (NEGATIVE) Urine Benzodiazepines Screen Negative (NEGATIVE) Urine Cocaine Screen Negative (NEGATIVE) Urine Marijuana (THC) Screen Negative (NEGATIVE) Test 05/23/19 05:40 05/23/19 09:18 White Blood Count 16.9 K/UL (4.8-10.8) H Red Blood Count 3.10 M/UL (4.70-6.10) L Hemoglobin 9.9 G/DL (14.2-18.0) L Hematocrit 28.4 % (42.0-52.0) L Mean Corpuscular Volume 92 FL (80-99) Mean Corpuscular Hemoglobin 32.1 PG (27.0-31.0) H Mean Corpuscular Hemoglobin Concent 35.0 G/DL (32.0-36.0) Red Cell Distribution Width 15.3 % (11.6-14.8) H Platelet Count 63 K/UL (150-450) L Mean Platelet Volume 6.8 FL (6.5-10.1) Neutrophils (%) (Auto) % (45.0-75.0) Lymphocytes (%) (Auto) % (20.0-45.0) Monocytes (%) (Auto) % (1.0-10.0) Eosinophils (%) (Auto) % (0.0-3.0) Basophils (%) (Auto) % (0.0-2.0) Differential Total Cells Counted 100 Neutrophils % (Manual) 88 % (45-75) H Lymphocytes % (Manual) 4 % (20-45) L Monocytes % (Manual) 2 % (1-10) Eosinophils % (Manual) 0 % (0-3) Basophils % (Manual) 0 % (0-2) Band Neutrophils 6 % (0-8) Platelet Estimate Decreased L Platelet Morphology Normal Anisocytosis 1+ Sodium Level 144 MMOL/L (136-145) Potassium Level 3.3 MMOL/L (3.5-5.1) L Chloride Level 113 MMOL/L (98-107) H Carbon Dioxide Level 20 MMOL/L (21-32) L Anion Gap 11 mmol/L (5-15) Blood Urea Nitrogen 14 mg/dL (7-18) Creatinine 1.1 MG/DL (0.55-1.30) Estimat Glomerular Filtration Rate > 60 mL/min (>60) Glucose Level 128 MG/DL (74-106) H Calcium Level 7.2 MG/DL (8.5-10.1) L Total Bilirubin 0.9 MG/DL (0.2-1.0) Direct Bilirubin 0.3 MG/DL (0.0-0.3) Aspartate Amino Transf (AST/SGOT) 20 U/L (15-37) Alanine Aminotransferase (ALT/SGPT) 8 U/L (12-78) L Alkaline Phosphatase 63 U/L (46-116) Total Protein 5.7 G/DL (6.4-8.2) L Albumin 2.6 G/DL (3.4-5.0) L Globulin 3.1 g/dL Albumin/Globulin Ratio 0.8 (1.0-2.7) L Arterial Blood pH 7.439 (7.350-7.450) Arterial Blood Partial Pressure CO2 28.4 mmHg (35.0-45.0) L Arterial Blood Partial Pressure O2 121.8 mmHg (75.0-100.0) H Arterial Blood HCO3 18.8 mmol/L (22.0-26.0) L Arterial Blood Oxygen Saturation 97.7 % (95-100) Arterial Blood Base Excess -4.4 (-2-2) L Bola Test Positive Microbiology Date/Time Source Procedure Growth Status 05/22/19 18:33 Nasal Nares - Final Complete 05/22/19 18:33 Nasal Nares - Final Complete Height (Feet): 5 Height (Inches): 10.00 Weight (Pounds): 148 Medications Current Medications Medications (Trade) Dose Ordered Sig/Ana Route PRN Reason Start Time Stop Time Status Last Admin Dose Admin Acetaminophen (Tylenol) 650 mg Q4H PRN ORAL fever 05/22/19 23:15 06/21/19 23:14 Albuterol/ Ipratropium (Albuterol/ Ipratropium) 3 ml EVERY 4 HOURS PRN HHN Shortness of Breath 05/22/19 23:15 05/27/19 23:14 Amikacin Protocol (Amikacin pharmacy to dose) 1 ea DAILY PRN MISC SEPSIS 05/23/19 03:45 06/22/19 03:44 Amikacin Sulfate 950 mg/Sodium Chloride 113.8 ml @ 113.8 mls/ hr Q36H IV 05/23/19 04:30 05/30/19 04:29 05/23/19 04:38 Heparin Sodium (Porcine) (Heparin 5000 units/ml) 5,000 units EVERY 12 HOURS SUBQ 05/23/19 09:00 06/22/19 08:59 Norepinephrine Bitartrate 4 mg/ Dextrose 254 ml @ 0 mls/hr Q24H IV 05/22/19 23:15 06/21/19 23:14 05/23/19 06:05 Ondansetron HCl (Zofran) 4 mg Q6H PRN IVP Nausea & Vomiting 05/22/19 23:15 06/21/19 23:14 Pantoprazole (Protonix) 40 mg DAILY@0630 IVP 05/23/19 06:30 06/22/19 06:29 05/23/19 06:05 Potassium Chloride (K-Dur) 40 meq ONCE ORAL 05/23/19 09:15 05/23/19 11:00 05/23/19 10:20 Sodium Chloride 1,000 ml @ 100 mls/hr Q10H IVLG 05/22/19 23:12 06/21/19 23:11 05/23/19 10:19 Sodium Chloride 1,000 ml @ 200 mls/hr Q5H IV 05/23/19 01:15 06/22/19 01:14 05/23/19 01:23 Vancomycin HCl (Vanco rx to dose) 1 ea DAILY PRN MISC SEPSIS 05/23/19 03:45 06/22/19 03:44 Vancomycin HCl 750 mg/Sodium Chloride 275 ml @ 183.333 mls/hr Q12H IVPB 05/23/19 14:00 05/28/19 13:59 Assessment/Plan Assessment/Plan: Abx: IV Vancomycin 05/22- IV Amikacin 05/22- Zosyn x 1 05/22 Ertapenem x1 05/23 Assessment: Septic Shock PNA Probable UTI -u/a wbc 10-15, nit neg, leuk +1 -Influenza PCR neg -CXR: Redemonstration of increased opacity in the right upper lobe which is slightly better aerated. Right central line terminates in the cavoatrial junction. Fever; improving Leukocytosis, worsening -CT head: No acute intracranial pathology. Right scalp operative bashir. Parenchymal volume loss, chronic and of likely no acute abnormality. Right ethmoidal and left sphenoid sinus findings suggesting sinusitis. JALEEL, improving Tachycardia>bradycardia schizophrenia assisted living facility resident Plan: -Continue empiric IV Vancomycin and Amikacin #2 and add Meropenem -will narrow based on cultures -f/u cx -Monitor CBC/CMP, temperatures -ICU care -aspiration precautions Thank you for consulting [facility]. Will continue to follow along with you. Discussed with Evelia Mcelroy M.D. May 23, 2019 11:25
[2019-05-23 11:34] LABS: INR 1.3 (0.9-1.1)
[2019-05-23 11:37] LABS: LACTATE DEHYDROGENASE 167 U/L (81-234)
--- NOTE | 2019-05-23 11:57 | Diagnostic Imaging Report ---
Indication: Chest pain Technique: One view of the chest Comparison: none Findings: There is hazy consolidation of the right upper lobe. The remainder the lungs and pleural spaces are clear. The heart size is normal Impression: Findings consistent with right upper lobe pneumonia
[2019-05-23 12:32] LABS: % IRON SATURATION 4 % (15-50); IRON 5 ug/dL (50-175); TOTAL IRON BINDING CAPACITY 137 ug/dL (250-450)
[2019-05-23] MEDS ORDERED: Meropenem 1 GM in NS 55 ML IVPB SCH (14:00)
[2019-05-23] MEDS ORDERED: Vancomycin 750mg/NS 275ml IVPB SCH ×2 (14:00)
[2019-05-23] MEDS: Meropenem 1 GM in NS 55 ML IVPB SCH ×2 (14:44→21:43)
[2019-05-23] MEDS ORDERED: Albuterol/Ipratropium 3ml neb HHN PRN (17:15)
--- NOTE | 2019-05-23 19:15 | History and Physical Report ---
DATE OF ADMISSION: 05/22/2019 TIME SEEN: 12 noon. CONSULTANTS: 1. Yung Daniels M.D. 2. Turner Rodas M.D. 3. Devan Ann M.D. 4. Corona King M.D. CHIEF COMPLAINT: Right lower lobe pneumonia, sepsis, fever, syncope. BRIEF HISTORY: The patient is a 44-year-old male from independent living facility apparently had cough and shortness of breath for about a couple days, came into [facility], after having syncopal episode, was found to have fever and right lower lobe atelectasis, pneumonia, elevated white count, admitted to ICU for further care. Currently, O2, NC, slight short of breath in bed in ICU. No complaint. No chest pain. Slight short of breath. No nausea, vomiting, or diarrhea. PAST MEDICAL HISTORY: Includes panic attacks, schizophrenia. PAST SURGICAL HISTORY: Unknown. MEDICATIONS: Include theophylline, meropenem, vancomycin, promethazine, heparin, pantoprazole, amikacin, , albuterol, Zofran, hydrocodone, Zosyn. ALLERGIES: Denies. SOCIAL HISTORY: No smoking. No alcohol. No intravenous drug abuse. FAMILY HISTORY: Noncontributory. PHYSICAL EXAMINATION: GENERAL: Calm in bed, oriented x2, in no acute distress. VITAL SIGNS: Temperature refused, pulse 52, respiratory rate 26, blood pressure 99/62. CARDIOVASCULAR: No murmur. LUNGS: Poor exchange. ABDOMEN: Bowel sound distant. EXTREMITIES: No cyanosis or edema. NEUROLOGIC: The patient moves all extremities, slightly weak. LABORATORY AND DIAGNOSTIC DATA: Labs at this time show white count 16, hemoglobin and hematocrit 9 and 28, platelets 63. Potassium 3.3, chloride 113, CO2 20, glucose 128, albumin 2.6. INR is 1.3 and PTT is 36. Urinalysis show 1+ leukocyte esterase. Urine tox is negative ASSESSMENT: 1. Syncope. 2. Fever. 3. Cough. 4. Shortness breath. 5. Schizophrenia. 6. Thrombocytopenia. 7. Right lower lobe atelectasis and pneumonia. 8. Sepsis. 9. Leukocytosis. 10. Anemia. 11. Malnutrition. 12. Panic attacks. PLAN: 1. O2 and pulmonary treatment. 2. Antibiotics per Infectious Diseases. 3. Blood pressure and blood sugar control. 4. Dietary followup. 5. Psychiatric treatment. 6. Hematology followup. 7. PT/ OT, dietary evaluation. 8. CBC and BMP in the morning. Junior Hicks D.O. DR: Danisha JOB#: [id number] CC:
[2019-05-23] MEDS: Heparin 5000 units/ml inj SUBQ SCH (20:12)
--- NOTE | 2019-05-23 20:27 | Cardiology Progress Note ---
Assessment/Plan Assessment/Plan [id number] Objective Last 24 Hour Vital Signs Date Time Temp Pulse Resp B/P (MAP) Pulse Ox O2 Delivery O2 Flow Rate FiO2 05/23/19 16:43 98.4 83 22 105/63 (77) 98 05/23/19 16:00 98.1 82 26 109/67 (81) 100 05/23/19 16:00 82 05/23/19 16:00 Room Air 05/23/19 15:04 Nasal Cannula 2.0 24 05/23/19 15:04 Nasal Cannula 2.0 24 05/23/19 15:00 84 28 104/60 (75) 100 05/23/19 14:00 82 24 109/86 (94) 100 05/23/19 13:00 80 21 105/67 (80) 100 05/23/19 12:00 Room Air 05/23/19 12:00 97.9 70 23 109/79 (89) 100 05/23/19 12:00 70 05/23/19 11:00 52 26 99/62 (74) 100 05/23/19 10:30 59 26 100/70 (80) 100 05/23/19 10:00 59 26 101/65 (77) 100 05/23/19 09:00 63 23 98/64 (75) 100 05/23/19 08:45 56 20 110/73 (85) 100 05/23/19 08:30 52 19 110/73 (85) 100 05/23/19 08:15 51 23 96/60 (72) 100 05/23/19 08:00 41 05/23/19 08:00 50 23 96/66 (76) 100 05/23/19 08:00 Room Air 2.0 05/23/19 07:45 53 22 115/72 (86) 99 05/23/19 07:00 42 14 108/68 (81) 100 05/23/19 07:00 108/68 05/23/19 06:30 110/66 05/23/19 06:30 55 20 110/66 (81) 100 05/23/19 06:05 119/80 05/23/19 06:00 46 05/23/19 06:00 97.5 45 16 119/80 (93) 100 05/23/19 06:00 Room Air 2.0 05/23/19 06:00 Nasal Cannula 2.0 05/23/19 05:25 96.9 52 20 123/93 100 Nasal Cannula 2.0 05/23/19 05:10 123/93 05/23/19 05:05 120/77 05/23/19 05:00 112/75 05/23/19 04:55 106/72 05/23/19 04:50 107/72 05/23/19 04:45 113/64 05/23/19 04:40 109/78 05/23/19 04:38 109/78 05/23/19 04:35 111/76 05/23/19 04:30 118/72 05/23/19 04:25 124/75 05/23/19 04:20 96/63 05/23/19 04:16 96.9 52 20 96/63 100 Nasal Cannula 2.0 05/23/19 04:15 101/68 05/23/19 04:10 116/72 05/23/19 04:05 110/71 05/23/19 04:00 127/85 05/23/19 03:55 129/86 05/23/19 03:50 136/75 05/23/19 03:45 132/76 05/23/19 03:40 140/87 05/23/19 03:35 137/81 05/23/19 03:30 106/71 05/23/19 03:25 108/71 05/23/19 03:20 104/70 05/23/19 03:15 108/68 05/23/19 03:10 106/67 05/23/19 03:05 108/68 05/23/19 03:00 105/70 05/23/19 02:53 97.8 47 20 107/68 100 Nasal Cannula 2.0 05/23/19 02:50 107/68 05/23/19 02:45 110/67 05/23/19 02:40 107/67 05/23/19 02:35 106/64 05/23/19 02:30 106/70 05/23/19 02:25 106/73 05/23/19 02:20 105/68 05/23/19 02:15 106/78 05/23/19 02:11 105/76 05/23/19 02:10 108/66 05/23/19 02:05 110/70 05/23/19 02:00 107/74 05/23/19 01:58 97.8 55 21 112/73 99 Nasal Cannula 2.0 05/23/19 01:55 112/73 05/23/19 01:50 132/79 05/23/19 01:45 85/72 05/23/19 01:40 113/60 05/23/19 01:35 112/73 05/23/19 01:30 110/70 05/23/19 01:25 107/69 05/23/19 01:20 107/69 05/23/19 01:15 104/62 05/23/19 01:10 104/67 05/23/19 01:05 101/61 05/23/19 01:03 106/84 05/23/19 01:00 101/61 05/23/19 00:55 100/63 05/23/19 00:50 103/62 05/23/19 00:45 102/66 05/23/19 00:45 102/62 05/23/19 00:40 103/61 05/23/19 00:35 106/65 05/23/19 00:30 102/60 05/23/19 00:25 103/62 05/23/19 00:20 100/82 05/23/19 00:15 100.9 70 25 103/66 97 Nasal Cannula 2.0 05/23/19 00:15 97/65 05/23/19 00:10 101/66 05/23/19 00:05 103/66 05/23/19 00:00 102/63 05/22/19 23:55 94/60 05/22/19 23:50 97/61 05/22/19 23:45 93/57 05/22/19 23:40 90/60 05/22/19 23:35 99/56 05/22/19 23:30 88/59 05/22/19 23:25 81/54 05/22/19 23:20 77/49 05/22/19 23:16 82/53 05/22/19 23:15 108/66 05/22/19 21:20 100.9 100 16 81/44 100 Nasal Cannula 2.0 Intake and Output 05/22/19 05/23/19 19:00 07:00 Intake Total 0 ml 4080.42 ml Output Total 2020 ml Balance 0 ml 2060.42 ml Intake Oral 0 ml IV Total 4080.42 ml Output Urine Total 2020 ml Laboratory Tests Test 05/22/19 21:46 05/22/19 22:00 05/23/19 05:40 05/23/19 09:18 Urine Color Yellow Urine Appearance Slightly cloudy Urine pH 7 (4.5-8.0) Urine Specific [place] 1.005 (1.005-1.035) Urine Protein 1+ (NEGATIVE) H Urine Glucose (UA) Negative (NEGATIVE) Urine Ketones Negative (NEGATIVE) Urine Blood Negative (NEGATIVE) Urine Nitrite Negative (NEGATIVE) Urine Bilirubin Negative (NEGATIVE) Urine Urobilinogen 1 MG/DL (0.0-1.0) H Urine Leukocyte Esterase 1+ (NEGATIVE) H Urine RBC 0-2 /HPF (0 - 0) H Urine WBC 10-15 /HPF (0 - 0) H Urine Squamous Epithelial Cells Occasional /LPF Urine Bacteria Many /HPF (NONE) H Urine Opiates Screen Negative (NEGATIVE) Urine Barbiturates Screen Negative (NEGATIVE) Phencyclidine (PCP) Screen Negative (NEGATIVE) Urine Amphetamines Screen Negative (NEGATIVE) Urine Benzodiazepines Screen Negative (NEGATIVE) Urine Cocaine Screen Negative (NEGATIVE) Urine Marijuana (THC) Screen Negative (NEGATIVE) Lactic Acid Level 1.90 mmol/L (0.66-2.22) White Blood Count 16.9 K/UL (4.8-10.8) H Red Blood Count 3.10 M/UL (4.70-6.10) L Hemoglobin 9.9 G/DL (14.2-18.0) L Hematocrit 28.4 % (42.0-52.0) L Mean Corpuscular Volume 92 FL (80-99) Mean Corpuscular Hemoglobin 32.1 PG (27.0-31.0) H Mean Corpuscular Hemoglobin Concent 35.0 G/DL (32.0-36.0) Red Cell Distribution Width 15.3 % (11.6-14.8) H Platelet Count 63 K/UL (150-450) L Mean Platelet Volume 6.8 FL (6.5-10.1) Neutrophils (%) (Auto) % (45.0-75.0) Lymphocytes (%) (Auto) % (20.0-45.0) Monocytes (%) (Auto) % (1.0-10.0) Eosinophils (%) (Auto) % (0.0-3.0) Basophils (%) (Auto) % (0.0-2.0) Differential Total Cells Counted 100 Neutrophils % (Manual) 88 % (45-75) H Lymphocytes % (Manual) 4 % (20-45) L Monocytes % (Manual) 2 % (1-10) Eosinophils % (Manual) 0 % (0-3) Basophils % (Manual) 0 % (0-2) Band Neutrophils 6 % (0-8) Platelet Estimate Decreased L Platelet Morphology Normal Anisocytosis 1+ Sodium Level 144 MMOL/L (136-145) Potassium Level 3.3 MMOL/L (3.5-5.1) L Chloride Level 113 MMOL/L (98-107) H Carbon Dioxide Level 20 MMOL/L (21-32) L Anion Gap 11 mmol/L (5-15) Blood Urea Nitrogen 14 mg/dL (7-18) Creatinine 1.1 MG/DL (0.55-1.30) Estimat Glomerular Filtration Rate > 60 mL/min (>60) Glucose Level 128 MG/DL (74-106) H Calcium Level 7.2 MG/DL (8.5-10.1) L Total Bilirubin 0.9 MG/DL (0.2-1.0) Direct Bilirubin 0.3 MG/DL (0.0-0.3) Aspartate Amino Transf (AST/SGOT) 20 U/L (15-37) Alanine Aminotransferase (ALT/SGPT) 8 U/L (12-78) L Alkaline Phosphatase 63 U/L (46-116) Total Protein 5.7 G/DL (6.4-8.2) L Albumin 2.6 G/DL (3.4-5.0) L Globulin 3.1 g/dL Albumin/Globulin Ratio 0.8 (1.0-2.7) L Arterial Blood pH 7.439 (7.350-7.450) Arterial Blood Partial Pressure CO2 28.4 mmHg (35.0-45.0) L Arterial Blood Partial Pressure O2 121.8 mmHg (75.0-100.0) H Arterial Blood HCO3 18.8 mmol/L (22.0-26.0) L Arterial Blood Oxygen Saturation 97.7 % (95-100) Arterial Blood Base Excess -4.4 (-2-2) L Bola Test Positive Test 05/23/19 11:00 05/23/19 14:00 05/23/19 14:05 Erythrocyte Sedimentation Rate 90 MM/HR (0-15) H Reticulocyte Count 2.7 % (0.5-2.0) H Prothrombin Time 13.4 SEC (9.30-11.50) H Prothromb Time International Ratio 1.3 (0.9-1.1) H Activated Partial Thromboplast Time 36 SEC (23-33) H Iron Level 5 ug/dL (50-175) L Total Iron Binding Capacity 137 ug/dL (250-450) L Percent Iron Saturation 4 % (15-50) L Unsaturated Iron Binding 132 ug/dL (112-346) Lactate Dehydrogenase 167 U/L (81-234) Carcinoembryonic Antigen Pending Vitamin B12 Level 296 PG/ML (193-986) Folate 5.3 NG/ML (8.6-58.9) L Stool Occult Blood Pending Random Amikacin Level Pending Microbiology Date/Time Source Procedure Growth Status 05/22/19 18:33 Nasal Nares - Final Complete 05/22/19 18:33 Nasal Nares - Final Complete Devan Ann MD May 23, 2019 20:27
[2019-05-23] MEDS ORDERED: Theophylline ER 100mg ORAL SCH (21:00)
[2019-05-23] MEDS: Theophylline ER 100mg ORAL SCH (21:42)
--- NOTE | 2019-05-23 22:45 | Consultation ---
DATE OF CONSULTATION: 05/23/2019 CONSULTING PHYSICIAN: Devan Ann M.D. REFERRING PHYSICIAN: Juinor Hicks D.O. REASON FOR REFERRAL: Syncope. HISTORY OF PRESENT ILLNESS: This is a 44-year-old gentleman who does indicate that he was admitted to the hospital because of syncope. The patient states this occurred approximately 2 days ago while he was walking, he stated he passed out. He really does not have any other recollection and he has a history of schizophrenia, living in an assisted living, but brought in by paramedics due to 2 episodes of syncope per the chart, one on the day of admission, one week previously, fever up to 103 degrees, and tachycardic. The patient started wandering around and walking to the street from assisted living where police officers were called and asked to call paramedics. The patient was admitted to the hospital for episode of syncope and tachycardia. The patient does not recall the episode that led to this syncope. Unfortunately, he does have a history of dizziness or lightheadedness on standing. Denies any chest pain, pressure, or tightness. No PND. No orthopnea, although he does wake up in the middle of the night sometimes. Because of shortness of breath, gets up and does some exercises. No heart pounding or palpitations. PAST MEDICAL HISTORY: Negative for diabetes. Negative for high blood pressure. No heart attack. No cancer. No stroke. No hepatitis. No tuberculosis. He does have a history of asthma. No ulcers. No kidney problems, liver problems, thyroid problems, anemia, or arthritis or HIV or AIDS or blood clots. ALLERGIES: He denies any allergies to medications. SOCIAL HISTORY: He used to smoke many years ago, not recently. No alcoholic beverages. No drug use. Support, assisted living situation. REVIEW OF SYSTEMS: GASTROINTESTINAL: He does have diarrhea recently. GENITOURINARY: He denies. PULMONARY: Denies. CONSTITUTIONAL: He has had fevers as mentioned. NEUROLOGIC: Negative, although he indicates he has panic attacks and he wants to take some Klonopin. PHYSICAL EXAMINATION: GENERAL: Shows to be a middle-aged gentleman, in no respiratory distress. Slow to speak, but he does speak. VITAL SIGNS: His blood pressure at the time of initial presentation to the emergency room has been documented in the 100s or so, but he does have one reading that is 85/72, but does not appear to be physiologic and has had levels as low as 96/63, but most recent blood pressures have been as high as 120 and his temperatures at the time of admission was 103.1 degrees, now 98.4 degrees; his respirations are 22; and heart rate is 83 at the present time, although his heart rate at the time of initial being found was as high as 130 and in the middle of the night was as well as 40s and 50s, now in the 80s. NECK: Supple. No jugular venous distention. LUNGS: Clear to auscultation and percussion. CARDIAC: S1 is normal. S2 is normal. Regular rate and rhythm. No heaves. No thrills or gallops noted. ABDOMEN: Soft and nontender. Positive bowel sounds. EXTREMITIES: There is no clubbing, cyanosis, nor is there any edema. NEUROLOGICAL: He is awake, alert, and responsive. LABORATORY VALUES AND IMAGING DATA: His labs, telemetry sinus and EKG at the time of presentation was sinus tachycardia, rate of 128 with normal QRS axis, and no ST or T-wave abnormalities were being documented. An echocardiogram has been performed that has been done today after hydration and technically difficult study. The preliminary ejection fraction 55% to 60%. No valvular regurgitation of significant degree. His labs, white count is 16.9 today with hemoglobin 9.9 and platelet count of 63,000, 88 polys, 4 lymphs, 2 monos, and 6 banded neutrophils. Sedimentation rate of 90. Retic count of 2.7. Blood gases, pH of 7.43, pCO2 20, pO2 123, and bicarb of 19. Sodium 144, potassium 3.3, chloride 113, bicarb 20, BUN of 14, creatinine 1.1, and glucose of 128. Lactic acid 2.5, subsequently 1.5. Calcium is 7.9. The patient with albumin 2.5. B12 of 296. Iron level was 5 with 4% saturation and lactic acid of 167. His coags, INR 1.3 and PTT of 36. Urinalysis showed 10 to 15 WBCs. Tox screen was negative and a stool for occult was pending. X-rays of the chest reported as showing increased opacity in right upper lobe, which is slightly better aerated with the right central line in place and a chest x-ray that was performed 2 days ago shows right upper lobe pneumonia and a CT scan of the head that was performed shows evidence of right parietal scalp laceration, negative for acute intracranial bleed, mass effects, or sinus disease. ASSESSMENT AND PLAN: 1. Syncope. 2. Sinus tachycardia. 3. Diarrhea. 4. Anemia. 5. Thrombocytopenia. 6. Iron deficiency. 7. Schizophrenia. This patient was seen in cardiac consultation. He does indicate some dizziness and lightheadedness on standing and he has had some diarrhea. He was tachycardic earlier. This is all corrected with administering of fluids. Orthostatic vitals will be ordered. However, at this point, may be not contributory if normal as the patient received some hydration since being admitted here over the past 24 to 36 hours, nevertheless if the orthostatic vitals are positive, which help in making further determination of the cause of syncope being volume depletion. He has been on some medications that contributed to his symptoms, however, primary reason I suspect is volume depletion and anemia in light of the fact that he also has diarrhea, which is likely the cause of his volume depletion. IV fluids will be continued. Echocardiogram does not show any significant abnormalities, will be observed. A set of cardiac enzymes, which were performed initially were negative will be repeated, however, again the patient does not have any signs or symptoms to suggest coronary syndrome. I will follow the patient along with you. Devan Ann M.D. DR: REECE JOB#: [id number] CC:
[2019-05-24] VITALS: BP 119/76
[2019-05-24] MEDS ORDERED: Vancomycin 750 MG in NS 275 ML IVPB SCH (02:00)
[2019-05-24 04:00] VITALS: BP 114/66
[2019-05-24] MEDS: Pantoprazole Inj IVP SCH (05:46)
[2019-05-24] MEDS: Meropenem 1 GM in NS 55 ML IVPB SCH ×4 (05:47→22:40)
[2019-05-24 07:31] LABS: HEMATOCRIT 24.5 % (42.0-52.0); HEMOGLOBIN 8.3 G/DL (14.2-18.0); MEAN CORPUSCULAR VOLUME 92 FL (80-99); PLATELET COUNT 54 K/UL (150-450); RED BLOOD COUNT 2.67 M/UL (4.70-6.10); RED CELL DISTRIBUTION WIDTH 15.5 % (11.6-14.8)
[2019-05-24 08:00] VITALS: BP 110/64
[2019-05-24 08:09] LABS: ALANINE AMINOTRANSFERASE 13 U/L (12-78); ALBUMIN 2.1 G/DL (3.4-5.0); ALBUMIN/GLOBULIN RATIO 0.6 (1.0-2.7); ALKALINE PHOSPHATASE 54 U/L (46-116); ANION GAP 9 mmol/L (5-15); ASPARTATE AMINO TRANSFERASE 17 U/L (15-37); BILIRUBIN,TOTAL 0.6 MG/DL (0.2-1.0); BLOOD UREA NITROGEN 11 mg/dL (7-18); CALCIUM 7.7 MG/DL (8.5-10.1); CARBON DIOXIDE 20 MMOL/L (21-32); CHLORIDE 116 MMOL/L (98-107); CREATININE 0.8 MG/DL (0.55-1.30); POTASSIUM 3.2 MMOL/L (3.5-5.1); SODIUM 145 MMOL/L (136-145)
[2019-05-24] MEDS: Theophylline ER 100mg ORAL SCH ×2 (08:44→21:08)
[2019-05-24] MEDS: Heparin 5000 units/ml inj SUBQ SCH ×2 (08:45→20:28)
[2019-05-24] MEDS ORDERED: Amikacin Rx to dose MISC PRN (09:00)
--- NOTE | 2019-05-24 09:40 | General Progress Note ---
Assessment/Plan Problem List: (1) Pneumonia ICD Codes: J18.9 - Pneumonia, unspecified organism SNOMED: 291980239 (2) Tachycardia ICD Codes: R00.0 - Tachycardia, unspecified SNOMED: 1058716 (3) Sepsis ICD Codes: A41.9 - Sepsis, unspecified organism SNOMED: 94681095 (4) Syncope ICD Codes: R55 - Syncope and collapse SNOMED: 377995957 (5) Schizophrenia ICD Codes: F20.9 - Schizophrenia, unspecified SNOMED: 04656617 Status: unchanged Assessment/Plan: o2 pulm tx abc pt diet eval cbc bmp am Subjective Constitutional: Reports: weakness Allergies: Coded Allergies: No Known Allergies (Unverified , 05/22/19) All Systems: reviewed and negative except above Subjective o2nc calm in bed Objective Last 24 Hour Vital Signs Date Time Temp Pulse Resp B/P (MAP) Pulse Ox O2 Delivery O2 Flow Rate FiO2 05/24/19 04:00 97.7 78 18 114/66 (82) 99 05/24/19 04:00 61 05/24/19 03:16 Nasal Cannula 2.0 05/24/19 03:16 Nasal Cannula 2.0 28 05/24/19 00:00 83 05/24/19 00:00 97.2 100 20 119/76 (90) 99 05/23/19 23:10 81 18 98 Nasal Cannula 2.0 28 05/23/19 23:10 88 18 98 Nasal Cannula 2.0 05/23/19 21:00 Nasal Cannula 2.0 05/23/19 20:00 93 05/23/19 20:00 99.7 90 18 110/67 (81) 99 05/23/19 19:35 85 16 98 Nasal Cannula 2.0 24 05/23/19 19:35 91 20 99 Nasal Cannula 2.0 24 05/23/19 16:43 98.4 83 22 105/63 (77) 98 05/23/19 16:00 98.1 82 26 109/67 (81) 100 05/23/19 16:00 82 05/23/19 16:00 Room Air 05/23/19 15:04 Nasal Cannula 2.0 24 05/23/19 15:04 Nasal Cannula 2.0 24 05/23/19 15:00 84 28 104/60 (75) 100 05/23/19 14:00 82 24 109/86 (94) 100 05/23/19 13:00 80 21 105/67 (80) 100 05/23/19 12:00 Room Air 05/23/19 12:00 97.9 70 23 109/79 (89) 100 05/23/19 12:00 70 05/23/19 11:00 52 26 99/62 (74) 100 05/23/19 10:30 59 26 100/70 (80) 100 05/23/19 10:00 59 26 101/65 (77) 100 Intake and Output 05/23/19 05/24/19 19:00 07:00 Intake Total 1487.86 ml 1720 ml Output Total 1760 ml Balance -272.14 ml 1720 ml Intake Oral 400 ml 240 ml IV Total 1087.86 ml 1480 ml Output Urine Total 1760 ml # Bowel Movements 6 Laboratory Tests 05/23/19 11:00: Erythrocyte Sedimentation Rate 90H, Reticulocyte Count 2.7H, Prothrombin Time 13.4H, Prothromb Time International Ratio 1.3H, Activated Partial Thromboplast Time 36H, Iron Level 5L, Total Iron Binding Capacity 137L, Percent Iron Saturation 4L, Unsaturated Iron Binding 132, Lactate Dehydrogenase 167, Carcinoembryonic Antigen [Pending], Vitamin B12 Level 296, Folate 5.3L 05/23/19 14:00: Stool Occult Blood [Pending] 05/23/19 14:05: Random Amikacin Level 2.3 05/23/19 22:00: Troponin I 0.000 05/24/19 00:00: HIV-1 Antibody [Pending], HIV-2 Antibody [Pending] 05/24/19 06:20: White Blood Count 10.0, Red Blood Count 2.67L, Hemoglobin 8.3L, Hematocrit 24.5L , Mean Corpuscular Volume 92, Mean Corpuscular Hemoglobin 31.1H, Mean Corpuscular Hemoglobin Concent 33.8, Red Cell Distribution Width 15.5H, Platelet Count 54L, Mean Platelet Volume 8.3, Neutrophils (%) (Auto) , Lymphocytes (%) (Auto) , Monocytes (%) (Auto) , Eosinophils (%) (Auto) , Basophils (%) (Auto) , Neutrophils % (Manual) [Pending], Lymphocytes % (Manual) [Pending], Platelet Estimate [Pending], Platelet Morphology [Pending], Sodium Level 145, Potassium Level 3.2L, Chloride Level 116H, Carbon Dioxide Level 20L, Anion Gap 9, Blood Urea Nitrogen 11, Creatinine 0.8, Estimat Glomerular Filtration Rate > 60, Glucose Level 94, Calcium Level 7.7L, Phosphorus Level 2.0L, Magnesium Level 2.0, Total Bilirubin 0.6, Aspartate Amino Transf (AST/SGOT ) 17, Alanine Aminotransferase (ALT/SGPT) 13, Alkaline Phosphatase 54, Troponin I 0.000, Total Protein 5.4L, Albumin 2.1L, Globulin 3.3, Albumin/Globulin Ratio 0.6L, Thyroid Stimulating Hormone (TSH) 2.182, Hepatitis A IgM Antibody [Pending ], Hepatitis B Surface Antigen [Pending], Hepatitis B Core IgM Antibody [Pending ], Hepatitis C Antibody [Pending], HIV (1&2) Antibody Rapid Preliminary positiveH Height (Feet): 5 Height (Inches): 10.00 Weight (Pounds): 150 General Appearance: lethargic EENT: normal ENT inspection Neck: normal alignment Cardiovascular: normal peripheral pulses, normal rate, regular rhythm Respiratory/Chest: chest wall non-tender, lungs clear, normal breath sounds Abdomen: normal bowel sounds, non tender, soft Extremities: normal inspection Edema: no edema noted Arm (L), no edema noted Arm (R), no edema noted Leg (L), no edema noted Leg (R), no edema noted Pedal (L), no edema noted Pedal (R), no edema noted Generalized Neurologic: motor weakness Skin: normal pigmentation, warm/dry Junior Hicks DO May 24, 2019 09:40
[2019-05-24] MEDS ORDERED: Amikacin 950 MG in NS 110 ML IV SCH ×2 (10:00→16:30)
[2019-05-24 12:00] VITALS: BP 113/65
--- NOTE | 2019-05-24 12:07 | Pulmonology Progress Note ---
Assessment/Plan Problems: (1) Bacteremia (2) Sepsis (3) Pneumonia (4) Schizophrenia Assessment/Plan iv fluids iv abx check cultures sputum c/s ID evaluation start feeding dvt prophylaxis. Subjective ROS Limited/Unobtainable: No Constitutional: Reports: no symptoms Allergies: Coded Allergies: No Known Allergies (Unverified , 05/22/19) Objective Last 24 Hour Vital Signs Date Time Temp Pulse Resp B/P (MAP) Pulse Ox O2 Delivery O2 Flow Rate FiO2 05/24/19 11:03 98.2 05/24/19 09:00 Nasal Cannula 2.0 05/24/19 08:00 98.1 75 19 110/64 (79) 100 05/24/19 08:00 75 05/24/19 04:00 97.7 78 18 114/66 (82) 99 05/24/19 04:00 61 05/24/19 03:16 Nasal Cannula 2.0 28 05/24/19 03:16 Nasal Cannula 2.0 28 05/24/19 00:00 83 05/24/19 00:00 97.2 100 20 119/76 (90) 99 05/23/19 23:10 81 18 98 Nasal Cannula 2.0 28 05/23/19 23:10 88 18 98 Nasal Cannula 2.0 28 05/23/19 21:00 Nasal Cannula 2.0 05/23/19 20:00 93 05/23/19 20:00 99.7 90 18 110/67 (81) 99 05/23/19 19:35 85 16 98 Nasal Cannula 2.0 24 05/23/19 19:35 91 20 99 Nasal Cannula 2.0 24 05/23/19 16:43 98.4 83 22 105/63 (77) 98 05/23/19 16:00 98.1 82 26 109/67 (81) 100 05/23/19 16:00 82 05/23/19 16:00 Room Air 05/23/19 15:04 Nasal Cannula 2.0 24 05/23/19 15:04 Nasal Cannula 2.0 24 05/23/19 15:00 84 28 104/60 (75) 100 05/23/19 14:00 82 24 109/86 (94) 100 05/23/19 13:00 80 21 105/67 (80) 100 Intake and Output 05/23/19 05/24/19 19:00 07:00 Intake Total 1487.86 ml 1720 ml Output Total 1760 ml Balance -272.14 ml 1720 ml Intake Oral 400 ml 240 ml IV Total 1087.86 ml 1480 ml Output Urine Total 1760 ml # Bowel Movements 6 General Appearance: cachetic HEENT: normocephalic, atraumatic Respiratory/Chest: chest wall non-tender, lungs clear Cardiovascular: normal peripheral pulses, normal rate Abdomen: normal bowel sounds, soft, non tender Extremities: no cyanosis 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 Microbiology Date/Time Source Procedure Growth Status 05/22/19 18:33 Blood Blood Culture - Preliminary NO GROWTH AFTER 24 HOURS Resulted 05/22/19 18:33 Blood Blood Culture - Preliminary Resulted 05/22/19 18:33 Nasal Nares - Final Complete 05/22/19 18:33 Nasal Nares - Final Complete 05/23/19 14:00 Stool Clostridium difficile Toxin Assay - Final Complete 05/22/19 21:46 Urine,Clean Catch Urine Culture - Preliminary Resulted Laboratory Tests 05/23/19 14:00: Stool Occult Blood [Pending] 05/23/19 14:05: Random Amikacin Level 2.3 05/23/19 22:00: Troponin I 0.000 05/24/19 00:00: HIV-1 Antibody [Pending], HIV-2 Antibody [Pending] 05/24/19 06:20: White Blood Count 10.0, Red Blood Count 2.67L, Hemoglobin 8.3L, Hematocrit 24.5L , Mean Corpuscular Volume 92, Mean Corpuscular Hemoglobin 31.1H, Mean Corpuscular Hemoglobin Concent 33.8, Red Cell Distribution Width 15.5H, Platelet Count 54L, Mean Platelet Volume 8.3, Neutrophils (%) (Auto) , Lymphocytes (%) (Auto) , Monocytes (%) (Auto) , Eosinophils (%) (Auto) , Basophils (%) (Auto) , Differential Total Cells Counted 100, Neutrophils % ( Manual) 82H, Lymphocytes % (Manual) 14L, Monocytes % (Manual) 4, Eosinophils % ( Manual) 0, Basophils % (Manual) 0, Band Neutrophils 0, Platelet Estimate DecreasedL, Platelet Morphology Normal, Hypochromasia 1+, Anisocytosis 1+, Sodium Level 145, Potassium Level 3.2L, Chloride Level 116H, Carbon Dioxide Level 20L, Anion Gap 9, Blood Urea Nitrogen 11, Creatinine 0.8, Estimat Glomerular Filtration Rate > 60, Glucose Level 94, Calcium Level 7.7L, Phosphorus Level 2.0L, Magnesium Level 2.0, Total Bilirubin 0.6, Aspartate Amino Transf (AST/SGOT) 17, Alanine Aminotransferase (ALT/SGPT) 13, Alkaline Phosphatase 54, Troponin I 0.000, Total Protein 5.4L, Albumin 2.1L, Globulin 3.3 , Albumin/Globulin Ratio 0.6L, Thyroid Stimulating Hormone (TSH) 2.182, Hepatitis A IgM Antibody [Pending], Hepatitis B Surface Antigen [Pending], Hepatitis B Core IgM Antibody [Pending], Hepatitis C Antibody [Pending], HIV (1& 2) Antibody Rapid Preliminary positiveH Current Medications Medications (Trade) Dose Ordered Sig/Ana Route PRN Reason Start Time Stop Time Status Last Admin Dose Admin Acetaminophen (Tylenol) 650 mg Q4H PRN ORAL fever (T>100.5) 05/23/19 19:15 06/21/19 23:14 05/24/19 10:33 Albuterol/ Ipratropium (Albuterol/ Ipratropium) 3 ml Q4H PRN HHN Shortness of Breath 05/23/19 17:15 05/28/19 17:14 Amikacin Protocol (Amikacin pharmacy to dose) 1 ea DAILY PRN MISC SEPSIS, PER RX PROTOCOL 05/24/19 09:00 06/22/19 03:44 Amikacin Sulfate 950 mg/Sodium Chloride 113.8 ml @ 113.8 mls/ hr Q24H IV 05/24/19 10:00 05/31/19 09:59 05/24/19 10:31 Chlorhexidine Gluconate (Jessie-Hex 2%) 1 applic DAILY@2000 TOPIC 05/24/19 20:00 06/23/19 19:59 Heparin Sodium (Porcine) (Heparin 5000 units/ml) 5,000 units EVERY 12 HOURS SUBQ 05/23/19 21:00 06/22/19 08:59 Loperamide HCl (Imodium) 2 mg Q4H PRN ORAL Diarrhea 05/23/19 18:15 06/22/19 14:14 Meropenem 1 gm/ Sodium Chloride 55 ml @ 110 mls/hr Q8HR IVPB 05/23/19 22:00 05/28/19 14:59 05/24/19 05:47 Ondansetron HCl (Zofran) 4 mg Q6H PRN IVP Nausea & Vomiting 05/23/19 17:15 06/21/19 23:14 Pantoprazole (Protonix) 40 mg DAILY@0630 IVP 05/24/19 06:30 06/22/19 06:29 05/24/19 05:46 Promethazine HCl/ Codeine (Phenergan with Codeine) 5 ml Q4H PRN ORAL For Cough 05/23/19 17:15 06/22/19 17:14 Sodium Chloride 1,000 ml @ 100 mls/hr Q10H IVLG 05/23/19 17:15 06/21/19 23:11 05/24/19 02:03 Theophylline (Nicanor-Dur) 100 mg EVERY 12 HOURS ORAL 05/23/19 21:00 06/22/19 20:59 05/24/19 08:44 Vancomycin HCl (Vanco rx to dose) 1 ea DAILY PRN MISC SEPSIS, PER RX PROTOCOL 05/24/19 09:00 06/22/19 03:44 Vancomycin HCl 750 mg/Sodium Chloride 275 ml @ 183.333 mls/hr Q12H IVPB 05/24/19 02:00 05/28/19 13:59 05/24/19 02:04 Yung Daniels MD May 24, 2019 12:06
--- NOTE | 2019-05-24 12:47 | Infectious Diseases Prog Note ---
Assessment/Plan Assessment/Plan Assessment: Septic Shock, SP PNA Gram positive bacteremia- real vs contaminant Probable UTI -05/22 Bcx 1/ GPC clusters -u/a wbc 10-15, nit neg, leuk +1; ux p -Influenza PCR neg -CXR: Redemonstration of increased opacity in the right upper lobe which is slightly better aerated. Right central line terminates in the cavoatrial junction. Fever; improving Leukocytosis, SP -CT head: No acute intracranial pathology. Right scalp operative bashir. Parenchymal volume loss, chronic and of likely no acute abnormality. Right ethmoidal and left sphenoid sinus findings suggesting sinusitis. HIV positive- ?new diagnosis JALEEL, improving Tachycardia>bradycardia schizophrenia assisted living facility resident Plan: -Continue empiric IV Vancomycin #3 and Meropenem #2 pending cultures -D/c Amikacin #3 -will narrow based on cultures -05/23 SP Ertapenem x1 -05/22 SP Zosyn x1 -f/u cx -Monitor CBC/CMP, temperatures -aspiration precautions -Bcx x2 -HIV VL, RPR, GC/CL, Cd4 Thank you for consulting [facility]. Will continue to follow along with you. Discussed with RN. Subjective Allergies: Coded Allergies: No Known Allergies (Unverified , 05/22/19) Subjective transferred out of ICU to telemetry afebrile >36hrs leukocytosis, SP Cr improving Objective Vital Signs Last 24 Hour Vital Signs Date Time Temp Pulse Resp B/P (MAP) Pulse Ox O2 Delivery O2 Flow Rate FiO2 05/24/19 11:03 98.2 05/24/19 09:00 Nasal Cannula 2.0 05/24/19 08:00 98.1 75 19 110/64 (79) 100 05/24/19 08:00 75 05/24/19 04:00 97.7 78 18 114/66 (82) 99 05/24/19 04:00 61 05/24/19 03:16 Nasal Cannula 2.0 28 05/24/19 03:16 Nasal Cannula 2.0 28 05/24/19 00:00 83 05/24/19 00:00 97.2 100 20 119/76 (90) 99 05/23/19 23:10 81 18 98 Nasal Cannula 2.0 28 05/23/19 23:10 88 18 98 Nasal Cannula 2.0 28 05/23/19 21:00 Nasal Cannula 2.0 05/23/19 20:00 93 05/23/19 20:00 99.7 90 18 110/67 (81) 99 05/23/19 19:35 85 16 98 Nasal Cannula 2.0 24 05/23/19 19:35 91 20 99 Nasal Cannula 2.0 24 05/23/19 16:43 98.4 83 22 105/63 (77) 98 05/23/19 16:00 98.1 82 26 109/67 (81) 100 05/23/19 16:00 82 05/23/19 16:00 Room Air 05/23/19 15:04 Nasal Cannula 2.0 24 05/23/19 15:04 Nasal Cannula 2.0 24 05/23/19 15:00 84 28 104/60 (75) 100 05/23/19 14:00 82 24 109/86 (94) 100 05/23/19 13:00 80 21 105/67 (80) 100 Height (Feet): 5 Height (Inches): 10.00 Weight (Pounds): 150 Objective General Appearance: alert, moderate distress, thin Head: normocephalic, atraumatic Eyes: bilateral eye normal inspection, bilateral eye PERRL ENT: hearing grossly normal, normal pharynx, no angioedema, normal voice Neck: full range of motion, supple, no meningismus, supple/symm/no masses Respiratory: chest non-tender, lungs clear, normal breath sounds, no rhonchi, no wheezing, speaking full sentences Cardiovascular: no murmur, normal capillary refill, tachycardia Gastrointestinal: normal bowel sounds, non tender, soft, non-distended, no guarding, no rebound Genitourinary: normal inspection, no CVA tenderness Musculoskeletal: back normal, digits/nails normal, no calf tenderness Neurologic: alert, oriented Skin: no rash, normal color, diaphoresis Microbiology Date/Time Source Procedure Growth Status 05/22/19 18:33 Blood Blood Culture - Preliminary NO GROWTH AFTER 24 HOURS Resulted 05/22/19 18:33 Blood Blood Culture - Preliminary Resulted 05/22/19 18:33 Nasal Nares - Final Complete 05/22/19 18:33 Nasal Nares - Final Complete 05/23/19 14:00 Stool Clostridium difficile Toxin Assay - Final Complete 05/22/19 21:46 Urine,Clean Catch Urine Culture - Preliminary Resulted Laboratory Tests Test 05/23/19 14:00 05/23/19 14:05 05/23/19 22:00 05/24/19 00:00 Stool Occult Blood Negative (NEGATIVE) Random Amikacin Level 2.3 MG/L Troponin I 0.000 ng/mL (0.000-0.056) HIV-1 Antibody Pending HIV-2 Antibody Pending Test 05/24/19 06:20 White Blood Count 10.0 K/UL (4.8-10.8) Red Blood Count 2.67 M/UL (4.70-6.10) L Hemoglobin 8.3 G/DL (14.2-18.0) L Hematocrit 24.5 % (42.0-52.0) L Mean Corpuscular Volume 92 FL (80-99) Mean Corpuscular Hemoglobin 31.1 PG (27.0-31.0) H Mean Corpuscular Hemoglobin Concent 33.8 G/DL (32.0-36.0) Red Cell Distribution Width 15.5 % (11.6-14.8) H Platelet Count 54 K/UL (150-450) L Mean Platelet Volume 8.3 FL (6.5-10.1) Neutrophils (%) (Auto) % (45.0-75.0) Lymphocytes (%) (Auto) % (20.0-45.0) Monocytes (%) (Auto) % (1.0-10.0) Eosinophils (%) (Auto) % (0.0-3.0) Basophils (%) (Auto) % (0.0-2.0) Differential Total Cells Counted 100 Neutrophils % (Manual) 82 % (45-75) H Lymphocytes % (Manual) 14 % (20-45) L Monocytes % (Manual) 4 % (1-10) Eosinophils % (Manual) 0 % (0-3) Basophils % (Manual) 0 % (0-2) Band Neutrophils 0 % (0-8) Platelet Estimate Decreased L Platelet Morphology Normal Hypochromasia 1+ Anisocytosis 1+ Sodium Level 145 MMOL/L (136-145) Potassium Level 3.2 MMOL/L (3.5-5.1) L Chloride Level 116 MMOL/L (98-107) H Carbon Dioxide Level 20 MMOL/L (21-32) L Anion Gap 9 mmol/L (5-15) Blood Urea Nitrogen 11 mg/dL (7-18) Creatinine 0.8 MG/DL (0.55-1.30) Estimat Glomerular Filtration Rate > 60 mL/min (>60) Glucose Level 94 MG/DL (74-106) Calcium Level 7.7 MG/DL (8.5-10.1) L Phosphorus Level 2.0 MG/DL (2.5-4.9) L Magnesium Level 2.0 MG/DL (1.8-2.4) Total Bilirubin 0.6 MG/DL (0.2-1.0) Aspartate Amino Transf (AST/SGOT) 17 U/L (15-37) Alanine Aminotransferase (ALT/SGPT) 13 U/L (12-78) Alkaline Phosphatase 54 U/L (46-116) Troponin I 0.000 ng/mL (0.000-0.056) Total Protein 5.4 G/DL (6.4-8.2) L Albumin 2.1 G/DL (3.4-5.0) L Globulin 3.3 g/dL Albumin/Globulin Ratio 0.6 (1.0-2.7) L Thyroid Stimulating Hormone (TSH) 2.182 uiU/mL (0.358-3.740) Hepatitis A IgM Antibody Pending Hepatitis B Surface Antigen Pending Hepatitis B Core IgM Antibody Pending Hepatitis C Antibody Pending HIV (1&2) Antibody Rapid Preliminary positive Current Medications Medications (Trade) Dose Ordered Sig/Ana Route PRN Reason Start Time Stop Time Status Last Admin Dose Admin Acetaminophen (Tylenol) 650 mg Q4H PRN ORAL fever (T>100.5) 05/23/19 19:15 06/21/19 23:14 05/24/19 10:33 Albuterol/ Ipratropium (Albuterol/ Ipratropium) 3 ml Q4H PRN HHN Shortness of Breath 05/23/19 17:15 05/28/19 17:14 Amikacin Protocol (Amikacin pharmacy to dose) 1 ea DAILY PRN MISC SEPSIS, PER RX PROTOCOL 05/24/19 09:00 06/22/19 03:44 Amikacin Sulfate 950 mg/Sodium Chloride 113.8 ml @ 113.8 mls/ hr Q24H IV 05/24/19 10:00 05/31/19 09:59 05/24/19 10:31 Chlorhexidine Gluconate (Jessie-Hex 2%) 1 applic DAILY@2000 TOPIC 05/24/19 20:00 06/23/19 19:59 Heparin Sodium (Porcine) (Heparin 5000 units/ml) 5,000 units EVERY 12 HOURS SUBQ 05/23/19 21:00 06/22/19 08:59 Loperamide HCl (Imodium) 2 mg Q4H PRN ORAL Diarrhea 05/23/19 18:15 06/22/19 14:14 Meropenem 1 gm/ Sodium Chloride 55 ml @ 110 mls/hr Q8HR IVPB 05/23/19 22:00 05/28/19 14:59 05/24/19 05:47 Ondansetron HCl (Zofran) 4 mg Q6H PRN IVP Nausea & Vomiting 05/23/19 17:15 06/21/19 23:14 Pantoprazole (Protonix) 40 mg DAILY@0630 IVP 05/24/19 06:30 06/22/19 06:29 05/24/19 05:46 Potassium Phosphate 250 ml @ 83.333 mls/ hr Q3H IVPB 05/24/19 13:00 05/24/19 18:59 Promethazine HCl/ Codeine (Phenergan with Codeine) 5 ml Q4H PRN ORAL For Cough 05/23/19 17:15 06/22/19 17:14 Sodium Chloride 1,000 ml @ 100 mls/hr Q10H IVLG 05/23/19 17:15 06/21/19 23:11 05/24/19 02:03 Theophylline (Nicanor-Dur) 100 mg EVERY 12 HOURS ORAL 05/23/19 21:00 06/22/19 20:59 05/24/19 08:44 Vancomycin HCl (Vanco rx to dose) 1 ea DAILY PRN MISC SEPSIS, PER RX PROTOCOL 05/24/19 09:00 06/22/19 03:44 Vancomycin HCl 750 mg/Sodium Chloride 275 ml @ 183.333 mls/hr Q12H IVPB 05/24/19 02:00 05/28/19 13:59 05/24/19 02:04 Evelia Suarez M.D. May 24, 2019 12:47
[2019-05-24] MEDS: Potassium Phosphate 15mm/250ml 250 ML IVPB SCH ×2 (12:55→16:00)
[2019-05-24] MEDS ORDERED: Vancomycin 1 GM in NS 275 ML IVPB SCH (15:00)
[2019-05-24 16:00] VITALS: BP 124/74
[2019-05-24] MEDS: Bactrim 20ml in D5W 550ml IV SCH (16:04)
--- NOTE | 2019-05-24 16:05 | Consultation ---
History of Present Illness General Chief Complaint: Fever Present Illness Allergies: Coded Allergies: No Known Allergies (Unverified , 05/22/19) Medication History Scheduled Baclofen* (Baclofen*), 10 MG ORAL THREE TIMES A DAY, (Reported) Ferrous Sulfate* (Ferrous Sulfate*), 325 MG ORAL DAILY, (Reported) Lorazepam* (Ativan*), 0.5 MG ORAL THREE TIMES A DAY, (Reported) Olanzapine* (Zyprexa*), 20 MG ORAL DAILY, (Reported) Omeprazole (Omeprazole), 40 MG ORAL DAILY, (Reported) Miscellaneous Medications Benztropine Mesylate* (Cogentin*), 1 MG PO, (Reported) Haloperidol (Haloperidol), 5 MG ORAL, (Reported) Patient History Healthcare decision maker Resuscitation status Full Code Advanced Directive on File No Physical Exam Last 24 Hour Vital Signs Date Time Temp Pulse Resp B/P (MAP) Pulse Ox O2 Delivery O2 Flow Rate FiO2 05/24/19 12:00 98.2 78 18 113/65 (81) 98 05/24/19 11:03 98.2 05/24/19 09:00 Nasal Cannula 2.0 05/24/19 08:00 98.1 75 19 110/64 (79) 100 05/24/19 08:00 75 05/24/19 04:00 97.7 78 18 114/66 (82) 99 05/24/19 04:00 61 05/24/19 03:16 Nasal Cannula 2.0 28 05/24/19 03:16 Nasal Cannula 2.0 28 05/24/19 00:00 83 05/24/19 00:00 97.2 100 20 119/76 (90) 99 05/23/19 23:10 81 18 98 Nasal Cannula 2.0 28 05/23/19 23:10 88 18 98 Nasal Cannula 2.0 28 05/23/19 21:00 Nasal Cannula 2.0 05/23/19 20:00 93 05/23/19 20:00 99.7 90 18 110/67 (81) 99 05/23/19 19:35 85 16 98 Nasal Cannula 2.0 24 05/23/19 19:35 91 20 99 Nasal Cannula 2.0 24 05/23/19 16:43 98.4 83 22 105/63 (77) 98 Intake and Output 05/23/19 05/24/19 19:00 07:00 Intake Total 1487.86 ml 1720 ml Output Total 1760 ml Balance -272.14 ml 1720 ml Intake Oral 400 ml 240 ml IV Total 1087.86 ml 1480 ml Output Urine Total 1760 ml # Bowel Movements 6 Laboratory Tests Test 05/23/19 22:00 05/24/19 00:00 05/24/19 06:20 05/24/19 12:45 Troponin I 0.000 ng/mL (0.000-0.056) 0.000 ng/mL (0.000-0.056) 0.000 ng/mL (0.000-0.056) HIV-1 Antibody Pending HIV-2 Antibody Pending White Blood Count 10.0 K/UL (4.8-10.8) Red Blood Count 2.67 M/UL (4.70-6.10) L Hemoglobin 8.3 G/DL (14.2-18.0) L Hematocrit 24.5 % (42.0-52.0) L Mean Corpuscular Volume 92 FL (80-99) Mean Corpuscular Hemoglobin 31.1 PG (27.0-31.0) H Mean Corpuscular Hemoglobin Concent 33.8 G/DL (32.0-36.0) Red Cell Distribution Width 15.5 % (11.6-14.8) H Platelet Count 54 K/UL (150-450) L Mean Platelet Volume 8.3 FL (6.5-10.1) Neutrophils (%) (Auto) % (45.0-75.0) Lymphocytes (%) (Auto) % (20.0-45.0) Monocytes (%) (Auto) % (1.0-10.0) Eosinophils (%) (Auto) % (0.0-3.0) Basophils (%) (Auto) % (0.0-2.0) Differential Total Cells Counted 100 Neutrophils % (Manual) 82 % (45-75) H Lymphocytes % (Manual) 14 % (20-45) L Monocytes % (Manual) 4 % (1-10) Eosinophils % (Manual) 0 % (0-3) Basophils % (Manual) 0 % (0-2) Band Neutrophils 0 % (0-8) Platelet Estimate Decreased L Platelet Morphology Normal Hypochromasia 1+ Anisocytosis 1+ Sodium Level 145 MMOL/L (136-145) Potassium Level 3.2 MMOL/L (3.5-5.1) L Chloride Level 116 MMOL/L (98-107) H Carbon Dioxide Level 20 MMOL/L (21-32) L Anion Gap 9 mmol/L (5-15) Blood Urea Nitrogen 11 mg/dL (7-18) Creatinine 0.8 MG/DL (0.55-1.30) Estimat Glomerular Filtration Rate > 60 mL/min (>60) Glucose Level 94 MG/DL (74-106) Calcium Level 7.7 MG/DL (8.5-10.1) L Phosphorus Level 2.0 MG/DL (2.5-4.9) L Magnesium Level 2.0 MG/DL (1.8-2.4) Total Bilirubin 0.6 MG/DL (0.2-1.0) Aspartate Amino Transf (AST/SGOT) 17 U/L (15-37) Alanine Aminotransferase (ALT/SGPT) 13 U/L (12-78) Alkaline Phosphatase 54 U/L (46-116) Total Protein 5.4 G/DL (6.4-8.2) L Albumin 2.1 G/DL (3.4-5.0) L Globulin 3.3 g/dL Albumin/Globulin Ratio 0.6 (1.0-2.7) L Thyroid Stimulating Hormone (TSH) 2.182 uiU/mL (0.358-3.740) Hepatitis A IgM Antibody Pending Hepatitis B Surface Antigen Pending Hepatitis B Core IgM Antibody Pending Hepatitis C Antibody Pending HIV (1&2) Antibody Rapid Preliminary positive Vancomycin Level Trough 5.5 ug/mL (5.0-12.0) Height (Feet): 5 Height (Inches): 10.00 Weight (Pounds): 150 Medications Current Medications Medications (Trade) Dose Ordered Sig/Ana Route PRN Reason Start Time Stop Time Status Last Admin Dose Admin Acetaminophen (Tylenol) 650 mg Q4H PRN ORAL fever (T>100.5) 05/23/19 19:15 06/21/19 23:14 05/24/19 10:33 Albuterol/ Ipratropium (Albuterol/ Ipratropium) 3 ml Q4H PRN HHN Shortness of Breath 05/23/19 17:15 2//20 17:14 Chlorhexidine Gluconate (Jessie-Hex 2%) 1 applic DAILY@2000 TOPIC 05/24/19 20:00 06/23/19 19:59 Heparin Sodium (Porcine) (Heparin 5000 units/ml) 5,000 units EVERY 12 HOURS SUBQ 05/23/19 21:00 06/22/19 08:59 Loperamide HCl (Imodium) 2 mg Q4H PRN ORAL Diarrhea 05/23/19 18:15 06/22/19 14:14 Meropenem 1 gm/ Sodium Chloride 55 ml @ 110 mls/hr Q8HR IVPB 05/23/19 22:00 05/28/19 14:59 05/24/19 13:53 Ondansetron HCl (Zofran) 4 mg Q6H PRN IVP Nausea & Vomiting 05/23/19 17:15 06/21/19 23:14 Pantoprazole (Protonix) 40 mg DAILY@0630 IVP 05/24/19 06:30 06/22/19 06:29 05/24/19 05:46 Potassium Phosphate 250 ml @ 83.333 mls/ hr Q3H IVPB 05/24/19 13:00 05/24/19 18:59 05/24/19 12:55 Promethazine HCl/ Codeine (Phenergan with Codeine) 5 ml Q4H PRN ORAL For Cough 05/23/19 17:15 06/22/19 17:14 Sodium Chloride 1,000 ml @ 100 mls/hr Q10H IVLG 05/23/19 17:15 06/21/19 23:11 05/24/19 12:56 Theophylline (Nicanor-Dur) 100 mg EVERY 12 HOURS ORAL 05/23/19 21:00 06/22/19 20:59 05/24/19 08:44 Trimethoprim/ Sulfamethoxazole 20 ml/Dextrose 570 ml @ 380 mls/hr [id number] BACTRIM IV 05/24/19 16:00 05/31/19 15:59 Assessment/Plan Assessment/Plan: Hematology Consultation MEGHAN DASILVA: Nikolai Hicks RFC: Drop in platelets, anemia DOS: 05/24/2019 HPI 44-year-old male with history of schizophrenia currently living in assisted living brought in by paramedics due to 2 episodes of syncope and 1 week prior, fever of 103 F, tachycardia. According to the paramedics patient started wandering around and walking to the street from assisted living earlier today were police officers were called in and asked to call the paramedics and bring the patient into the hospital due to syncope, elevated temperature, tachycardia. Patient has not communicate well when asked questions and is not a good historian. Diaphoresis noted. No obvious wounds or signs of trauma noted. Initially admitted to the icu, was on pressors and abx, was given ivf, now doing better, transferred to [facility], plt count has dropped from >100 to now 54, Hiv +, seen by pulm, id, cards, recs noted. Allergies: No Known Allergies (Unverified , 05/22/19) Patient History Past Medical History: see triage record Past Surgical History: unable to obtain Pertinent Family History: unable to obtain Immunizations: UTD Reviewed Nursing Documentation: PMH: Agreed Nursing Documentation-PMH Past Medical History: No History, Except For History Of Psychiatric Problem: Yes Review of Systems All Other Systems: negative except mentioned in HPI Physical Exam: Vitals: reviewed General Appearance: NAD HEENT: normocephalic, atraumatic Neck: non-tender, normal alignment Respiratory/Chest: normal breath sounds bilaterally Cardiovascular/Chest: normal peripheral pulses, normal rate Abdomen: normal bowel sounds, soft, nontender Extremities: normal range of motion Neuro: ++ anxious Labs: reviewed Imaging: reviewed Assessment and Recs: # Thrombocytopenia - potential causes multifactorial, evaluate liver and viral etiologies to begin, in this case HIV++ being w/u by id, also with pna being treated --> Hep panel and HIV ++ --> US abd to evaluate for cirrhosis and hsm ordered (PEND) --> Peripheral smear ordered to evaluate for blasts /schistocytes --> abx and other meds have been reviewed --> ok for ppx if plt >50k w/ either heparin or lovenox --> Transfuse if Plt < 20k and fever, or if Plt < 10k without fever --> plt trend 90-->64-->54k --> Rule out DIC and treat underlying cause # Anemia of chronic disease due to underlying chronic medical issues, multifactorial v Gi bleed --> Anemia workup has been ordered, rule out gi bleed --> No evidence of hemolysis is noted, peripheral smear has been reviewed. --> Hgb goal >7. Transfuse prn. --> Epogen or iron at this time is not particularly indicated --> Medications have been reviewed --> low threshold for gi evaluation in case has occult + --> iron 5, tibc 157, ferritin # Sepsis --> likely due to pna --> HIV workup --> on abx --> off pressors # Syncope # Tachycardia # Schizophrenia Appreciate consultation and dw Romie Schmid MD May 24, 2019 16:05
--- NOTE | 2019-05-24 19:01 | Cardiology Progress Note ---
Assessment/Plan Assessment/Plan 1. Syncope. 2. Sinus tachycardia. 3. Diarrhea. 4. Anemia. 5. Thrombocytopenia. 6. Iron deficiency. 7. Schizophrenia. plt are lower trop neg bp seem ok no orthostatic vital found heme noted blood cx cdiff neg on iv abx ivf to be continued ekg neg person reviewed tele neg personally reviewed Subjective Cardiovascular: Reports: lightheadedness; Denies: chest pain Respiratory: Denies: shortness of breath Gastrointestinal/Abdominal: Denies: abdominal pain Genitourinary: Denies: burning Objective Last 24 Hour Vital Signs Date Time Temp Pulse Resp B/P (MAP) Pulse Ox O2 Delivery O2 Flow Rate FiO2 05/24/19 16:00 98.6 61 18 124/74 (91) 98 05/24/19 16:00 63 05/24/19 12:00 98.2 78 18 113/65 (81) 98 05/24/19 12:00 66 05/24/19 11:03 98.2 05/24/19 09:00 Nasal Cannula 2.0 05/24/19 08:00 98.1 75 19 110/64 (79) 100 05/24/19 08:00 75 05/24/19 04:00 97.7 78 18 114/66 (82) 99 05/24/19 04:00 61 05/24/19 03:16 Nasal Cannula 2.0 28 05/24/19 03:16 Nasal Cannula 2.0 28 05/24/19 00:00 83 05/24/19 00:00 97.2 100 20 119/76 (90) 99 05/23/19 23:10 81 18 98 Nasal Cannula 2.0 28 05/23/19 23:10 88 18 98 Nasal Cannula 2.0 28 05/23/19 21:00 Nasal Cannula 2.0 05/23/19 20:00 93 05/23/19 20:00 99.7 90 18 110/67 (81) 99 05/23/19 19:35 85 16 98 Nasal Cannula 2.0 24 05/23/19 19:35 91 20 99 Nasal Cannula 2.0 24 General Appearance: no apparent distress, alert Cardiovascular: normal rate Respiratory/Chest: lungs clear Abdomen: normal bowel sounds, non tender, soft Extremities: non-tender, no swelling Intake and Output 05/23/19 05/24/19 19:00 07:00 Intake Total 1487.86 ml 1720 ml Output Total 1760 ml Balance -272.14 ml 1720 ml Intake Oral 400 ml 240 ml IV Total 1087.86 ml 1480 ml Output Urine Total 1760 ml # Bowel Movements 6 Laboratory Tests Test 05/23/19 22:00 05/24/19 00:00 05/24/19 06:20 05/24/19 12:45 Troponin I 0.000 ng/mL (0.000-0.056) 0.000 ng/mL (0.000-0.056) 0.000 ng/mL (0.000-0.056) HIV-1 Antibody Pending HIV-2 Antibody Pending White Blood Count 10.0 K/UL (4.8-10.8) Red Blood Count 2.67 M/UL (4.70-6.10) L Hemoglobin 8.3 G/DL (14.2-18.0) L Hematocrit 24.5 % (42.0-52.0) L Mean Corpuscular Volume 92 FL (80-99) Mean Corpuscular Hemoglobin 31.1 PG (27.0-31.0) H Mean Corpuscular Hemoglobin Concent 33.8 G/DL (32.0-36.0) Red Cell Distribution Width 15.5 % (11.6-14.8) H Platelet Count 54 K/UL (150-450) L Mean Platelet Volume 8.3 FL (6.5-10.1) Neutrophils (%) (Auto) % (45.0-75.0) Lymphocytes (%) (Auto) % (20.0-45.0) Monocytes (%) (Auto) % (1.0-10.0) Eosinophils (%) (Auto) % (0.0-3.0) Basophils (%) (Auto) % (0.0-2.0) Differential Total Cells Counted 100 Neutrophils % (Manual) 82 % (45-75) H Lymphocytes % (Manual) 14 % (20-45) L Monocytes % (Manual) 4 % (1-10) Eosinophils % (Manual) 0 % (0-3) Basophils % (Manual) 0 % (0-2) Band Neutrophils 0 % (0-8) Platelet Estimate Decreased L Platelet Morphology Normal Hypochromasia 1+ Anisocytosis 1+ Sodium Level 145 MMOL/L (136-145) Potassium Level 3.2 MMOL/L (3.5-5.1) L Chloride Level 116 MMOL/L (98-107) H Carbon Dioxide Level 20 MMOL/L (21-32) L Anion Gap 9 mmol/L (5-15) Blood Urea Nitrogen 11 mg/dL (7-18) Creatinine 0.8 MG/DL (0.55-1.30) Estimat Glomerular Filtration Rate > 60 mL/min (>60) Glucose Level 94 MG/DL (74-106) Calcium Level 7.7 MG/DL (8.5-10.1) L Phosphorus Level 2.0 MG/DL (2.5-4.9) L Magnesium Level 2.0 MG/DL (1.8-2.4) Total Bilirubin 0.6 MG/DL (0.2-1.0) Aspartate Amino Transf (AST/SGOT) 17 U/L (15-37) Alanine Aminotransferase (ALT/SGPT) 13 U/L (12-78) Alkaline Phosphatase 54 U/L (46-116) Total Protein 5.4 G/DL (6.4-8.2) L Albumin 2.1 G/DL (3.4-5.0) L Globulin 3.3 g/dL Albumin/Globulin Ratio 0.6 (1.0-2.7) L Thyroid Stimulating Hormone (TSH) 2.182 uiU/mL (0.358-3.740) Hepatitis A IgM Antibody Pending Hepatitis B Surface Antigen Pending Hepatitis B Core IgM Antibody Pending Hepatitis C Antibody Pending HIV (1&2) Antibody Rapid Preliminary positive Ferritin 903 NG/ML (8-388) H Vancomycin Level Trough 5.5 ug/mL (5.0-12.0) Microbiology Date/Time Source Procedure Growth Status 05/22/19 18:33 Blood Blood Culture - Preliminary NO GROWTH AFTER 24 HOURS Resulted 05/22/19 18:33 Blood Blood Culture - Preliminary Resulted 05/22/19 18:33 Nasal Nares - Final Complete 05/22/19 18:33 Nasal Nares - Final Complete 05/23/19 14:00 Stool Clostridium difficile Toxin Assay - Final Complete 05/22/19 21:46 Urine,Clean Catch Urine Culture - Preliminary Resulted Devan Ann MD May 24, 2019 19:01
[2019-05-24 20:00] VITALS: BP 116/73
[2019-05-24] MEDS: Dyna-Hex 2% Top Sol 2oz TOPIC SCH (21:08)
[2019-05-25] VITALS: BP 118/71
[2019-05-25] MEDS: Bactrim 20ml in D5W 550ml IV SCH ×3 (00:39→16:23)
[2019-05-25 04:00] VITALS: BP 110/63
--- NOTE | 2019-05-25 05:45 | Consultation ---
DATE OF CONSULTATION: 05/24/2019 CONSULTING PHYSICIAN: Corona King M.D. HISTORY OF PRESENT ILLNESS: This is a 44-year-old male with a history of anxiety disorder and schizophrenia who has been admitted to the hospital for pneumonia as well as sepsis. The patient is presenting with anxiety, depressed mood, anhedonia, and shortness of breath. The patient is not endorsing any psychotic or manic symptoms. He is stable on current psychotropic medications except the anxiety. PAST PSYCHIATRIC HISTORY: Schizophrenia, anxiety disorder, panic attacks, and several psychiatric hospitalizations. He is on multiple psychotropic medications including Zyprexa. PAST MEDICAL HISTORY: Significant for pneumonia and sepsis. ALLERGIES: No known drug allergies. SUBSTANCE ABUSE HISTORY: No known history of illicit drug use or alcohol. His toxicology is negative for drugs or alcohol. MENTAL STATUS EXAMINATION: The patient is alert and oriented times self, place, and situation. Mood is anxious. Affect is constricted, congruent with mood. Thought process is linear and goal oriented. Thought content, no suicidal or homicidal ideation. impaired. Insight and judgment are impaired. ASSESSMENT: [place] I Schizophrenia and acute encephalopathy, improved. [place] II Deferred. [place] III As above. [place] IV Low. [place] V 50. PLAN: 1. Zyprexa 20 mg at bedtime. 2. Ativan 0.5 mg t.i.d. 3. Continue to follow and readjust the medications. Corona King M.D. DR: Malcolm JOB#: [id number] CC: TAMIKA
[2019-05-25] MEDS: Meropenem 1 GM in NS 55 ML IVPB SCH ×3 (06:28→21:36)
[2019-05-25] MEDS: Pantoprazole Inj IVP SCH (06:29)
[2019-05-25 06:49] LABS: HEMATOCRIT 24.3 % (42.0-52.0); HEMOGLOBIN 8.4 G/DL (14.2-18.0); MEAN CORPUSCULAR VOLUME 91 FL (80-99); PLATELET COUNT 68 K/UL (150-450); RED BLOOD COUNT 2.67 M/UL (4.70-6.10); RED CELL DISTRIBUTION WIDTH 15.2 % (11.6-14.8); WHITE BLOOD COUNT 6.5 K/UL (4.8-10.8)
[2019-05-25 07:29] LABS: ALANINE AMINOTRANSFERASE 16 U/L (12-78); ALBUMIN 2.1 G/DL (3.4-5.0); ALBUMIN/GLOBULIN RATIO 0.6 (1.0-2.7); ALKALINE PHOSPHATASE 54 U/L (46-116); ANION GAP 9 mmol/L (5-15); ASPARTATE AMINO TRANSFERASE 18 U/L (15-37); BILIRUBIN,TOTAL 0.5 MG/DL (0.2-1.0); BLOOD UREA NITROGEN 6 mg/dL (7-18); CALCIUM 7.6 MG/DL (8.5-10.1); CARBON DIOXIDE 22 MMOL/L (21-32); CHLORIDE 113 MMOL/L (98-107); CREATININE 0.7 MG/DL (0.55-1.30); POTASSIUM 2.8 MMOL/L (3.5-5.1); SODIUM 145 MMOL/L (136-145)
--- NOTE | 2019-05-25 07:31 | Cardiology Progress Note ---
Assessment/Plan Assessment/Plan 1. Syncope. 2. Sinus tachycardia. 3. Diarrhea. 4. Anemia. 5. Thrombocytopenia. 6. Iron deficiency. 7. Schizophrenia. plt are lower trop neg bp seem ok no orthostatic vital found reorderd d/w rn to callmw the results heme noted blood cx neg so far cdiff neg on iv abx ivf to be continued ekg neg person reviewed tele neg personally reviewed august dc telel today Subjective Cardiovascular: Reports: lightheadedness; Denies: chest pain Respiratory: Denies: shortness of breath Gastrointestinal/Abdominal: Denies: abdominal pain Genitourinary: Denies: burning Objective Last 24 Hour Vital Signs Date Time Temp Pulse Resp B/P (MAP) Pulse Ox O2 Delivery O2 Flow Rate FiO2 05/25/19 04:00 97.5 57 16 110/63 (79) 99 05/25/19 04:00 56 05/25/19 03:24 Nasal Cannula 2.0 28 05/25/19 03:24 Nasal Cannula 2.0 28 05/25/19 00:00 54 05/25/19 00:00 97.9 60 16 118/71 (87) 99 05/24/19 23:45 58 18 99 Nasal Cannula 2.0 28 05/24/19 23:44 58 18 99 Nasal Cannula 2.0 28 05/24/19 21:00 Nasal Cannula 2.0 05/24/19 20:00 72 05/24/19 20:00 96.8 63 17 116/73 (87) 99 05/24/19 19:15 67 18 99 Nasal Cannula 2.0 28 05/24/19 19:14 67 18 99 Nasal Cannula 2.0 28 05/24/19 16:00 98.6 61 18 124/74 (91) 98 05/24/19 16:00 63 05/24/19 12:00 98.2 78 18 113/65 (81) 98 05/24/19 12:00 66 05/24/19 11:03 98.2 05/24/19 09:00 Nasal Cannula 2.0 05/24/19 08:00 98.1 75 19 110/64 (79) 100 05/24/19 08:00 75 General Appearance: alert Neck: supple Cardiovascular: normal rate Respiratory/Chest: lungs clear Abdomen: non tender, soft Extremities: no swelling Intake and Output 05/24/19 05/25/19 19:00 07:00 Intake Total 140 ml Output Total 1800 ml Balance -1660 ml Intake Oral 140 ml Output Urine Total 1800 ml # Voids 3 3 Laboratory Tests Test 05/24/19 12:45 05/24/19 20:30 05/25/19 04:30 Ferritin 903 NG/ML (8-388) H Troponin I 0.000 ng/mL (0.000-0.056) Vancomycin Level Trough 5.5 ug/mL (5.0-12.0) Chlamydia trachomatis RNA Pending Neisseria gonorrhoeae RNA Pending White Blood Count Pending Red Blood Count 2.67 M/UL (4.70-6.10) L Hemoglobin 8.4 G/DL (14.2-18.0) L Hematocrit 24.3 % (42.0-52.0) L Mean Corpuscular Volume 91 FL (80-99) Mean Corpuscular Hemoglobin 31.5 PG (27.0-31.0) H Mean Corpuscular Hemoglobin Concent 34.6 G/DL (32.0-36.0) Red Cell Distribution Width 15.2 % (11.6-14.8) H Platelet Count 68 K/UL (150-450) L Mean Platelet Volume 7.7 FL (6.5-10.1) Neutrophils (%) (Auto) % (45.0-75.0) Lymphocytes (%) (Auto) % (20.0-45.0) Monocytes (%) (Auto) % (1.0-10.0) Eosinophils (%) (Auto) % (0.0-3.0) Basophils (%) (Auto) % (0.0-2.0) Neutrophils % (Manual) Pending Lymphocytes % (Manual) Pending Lymphocytes Pending Platelet Estimate Pending Platelet Morphology Pending Erythrocyte Sedimentation Rate Pending Sodium Level 145 MMOL/L (136-145) Potassium Level 2.8 MMOL/L (3.5-5.1) L Chloride Level 113 MMOL/L (98-107) H Carbon Dioxide Level 22 MMOL/L (21-32) Anion Gap 9 mmol/L (5-15) Blood Urea Nitrogen 6 mg/dL (7-18) L Creatinine 0.7 MG/DL (0.55-1.30) Estimat Glomerular Filtration Rate > 60 mL/min (>60) Glucose Level 84 MG/DL (74-106) Calcium Level 7.6 MG/DL (8.5-10.1) L Phosphorus Level Pending Magnesium Level Pending Total Bilirubin 0.5 MG/DL (0.2-1.0) Aspartate Amino Transf (AST/SGOT) 18 U/L (15-37) Alanine Aminotransferase (ALT/SGPT) 16 U/L (12-78) Alkaline Phosphatase 54 U/L (46-116) C-Reactive Protein, Quantitative Pending Total Protein 5.5 G/DL (6.4-8.2) L Albumin 2.1 G/DL (3.4-5.0) L Globulin 3.4 g/dL Albumin/Globulin Ratio 0.6 (1.0-2.7) L Percent CD3 Cells Pending Absolute CD3 Count Pending Percent CD4 Cells Pending Absolute CD4 Count Pending T-Lymphocyte CD4/CD8 Ratio Pending Percent CD8 Cells Pending Absolute CD8 Count Pending Rapid Plasma Reagin Pending HIV-1 RNA, Quantitative copies/mL Pending HIV-1 RNA (PCR) log10 Value Pending HIV-1 RNA Ultraquantitative (PCR) Pending HIV Genotype Pending Microbiology Date/Time Source Procedure Growth Status 05/22/19 18:33 Blood Blood Culture - Preliminary NO GROWTH AFTER 48 HOURS Resulted 05/22/19 18:33 Blood Blood Culture - Preliminary Staphylococcus Sp Coag Neg Resulted 05/24/19 20:21 Sputum Gram Stain - Final Resulted 05/24/19 20:21 Sputum Sputum Culture Pending Resulted 05/22/19 18:33 Nasal Nares - Final Complete 05/22/19 18:33 Nasal Nares - Final Complete 05/23/19 14:00 Stool Clostridium difficile Toxin Assay - Final Complete 05/22/19 21:46 Urine,Clean Catch Urine Culture - Preliminary Strep Species, Beta Hemolytic Resulted Devan Ann MD May 25, 2019 07:31
[2019-05-25 08:00] VITALS: BP 119/74
[2019-05-25] MEDS: Theophylline ER 100mg ORAL SCH ×2 (08:33→21:37)
[2019-05-25 08:44] LABS: PHOSPHORUS 2.8 MG/DL (2.5-4.9)
[2019-05-25] MEDS: Heparin 5000 units/ml inj SUBQ SCH ×2 (08:53→21:00)
--- NOTE | 2019-05-25 11:33 | Diagnostic Imaging Report ---
Indication: Abdominal pain, abnormal liver function tests Technique: Alvarado-scale and duplex images of the upper abdomen were obtained Comparison: none Findings: Gallbladder demonstrates mild wall thickening and slight pericholecystic edema, gallbladder wall measuring up to 5 mm in thickness. However, no gallstones are demonstrated. Sonographic Sanches's sign is negative. Common bile duct measures 4 mm in diameter. No intrahepatic biliary ductal dilatation. Liver demonstrates normal echogenicity, no focal abnormality. No surface nodularity Portal vein and hepatic veins are patent. Pancreas is unremarkable. Spleen is enlarged, measuring 15.6 cm long axis dimension Left kidney measures 11.6 cm in length. Right kidney measures 11.3 cm length. Both kidneys demonstrate normal echogenicity. There is mild fullness to the right renal collecting system without sona hydronephrosis. There is also trace perinephric fluid on the right. There is a small right renal cyst . Non-aneurysmal abdominal aorta . There is a small right pleural effusion Impression: Negative for gallstones. There is, however, gallbladder wall thickening. This can be seen with adjacent hepatocellular inflammation, other systemic causes of edema, acalculous acute cholecystitis, and acute cholecystitis due to occult stone disease. Consider hepatobiliary nuclear scan if there is high clinical suspicion Negative for dilated bile ducts Splenomegaly Mild fullness to the right renal collecting system, nonspecific Trace right perinephric fluid, nonspecific, can be seen in renal inflammation Small right pleural effusion Incidental finding small right renal cyst
[2019-05-25 12:00] VITALS: BP 126/68
--- NOTE | 2019-05-25 13:01 | Pulmonology Progress Note ---
Assessment/Plan Problems: (1) Bacteremia (2) Sepsis (3) Pneumonia (4) Schizophrenia Assessment/Plan iv fluids iv abx, afebrile now check cultures sputum c/s ID evaluation appreciated tolerating feeding dvt prophylaxis. Subjective ROS Limited/Unobtainable: Yes Allergies: Coded Allergies: No Known Allergies (Unverified , 05/22/19) Objective Last 24 Hour Vital Signs Date Time Temp Pulse Resp B/P (MAP) Pulse Ox O2 Delivery O2 Flow Rate FiO2 05/25/19 12:00 98.2 72 18 126/68 (87) 99 05/25/19 11:14 Nasal Cannula 2.0 28 05/25/19 11:14 Nasal Cannula 2.0 28 05/25/19 09:00 Nasal Cannula 2.0 Nasal Cannula 2.0 05/25/19 08:05 91 05/25/19 08:00 61 05/25/19 08:00 64 05/25/19 08:00 98.1 61 18 119/74 (89) 100 05/25/19 07:55 57 05/25/19 07:23 73 20 99 Nasal Cannula 2.0 28 05/25/19 07:18 69 18 98 Nasal Cannula 2.0 28 05/25/19 04:00 97.5 57 16 110/63 (79) 99 05/25/19 04:00 56 05/25/19 03:24 Nasal Cannula 2.0 28 05/25/19 03:24 Nasal Cannula 2.0 28 05/25/19 00:00 54 05/25/19 00:00 97.9 60 16 118/71 (87) 99 05/24/19 23:45 58 18 99 Nasal Cannula 2.0 28 05/24/19 23:44 58 18 99 Nasal Cannula 2.0 28 05/24/19 21:00 Nasal Cannula 2.0 05/24/19 20:00 72 05/24/19 20:00 96.8 63 17 116/73 (87) 99 05/24/19 19:15 67 18 99 Nasal Cannula 2.0 28 05/24/19 19:14 67 18 99 Nasal Cannula 2.0 28 05/24/19 16:00 98.6 61 18 124/74 (91) 98 05/24/19 16:00 63 Intake and Output 05/24/19 05/25/19 19:00 07:00 Intake Total 240 ml 1885 ml Output Total 1800 ml 1300 ml Balance -1560 ml 585 ml Intake Oral 140 ml 120 ml IV Total 100 ml 1765 ml Output Urine Total 1800 ml 1300 ml # Voids 3 3 General Appearance: WD/WN HEENT: normocephalic, atraumatic Respiratory/Chest: chest wall non-tender, lungs clear Cardiovascular: normal peripheral pulses, normal rate Abdomen: normal bowel sounds, soft, non tender 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 II-XII grossly normal, abnormal gait Microbiology Date/Time Source Procedure Growth Status 05/22/19 18:33 Blood Blood Culture - Preliminary NO GROWTH AFTER 48 HOURS Resulted 05/22/19 18:33 Blood Blood Culture - Preliminary Staphylococcus Sp Coag Neg Resulted 05/24/19 20:21 Sputum Gram Stain - Final Resulted 05/24/19 20:21 Sputum Sputum Culture Pending Resulted 05/22/19 18:33 Nasal Nares - Final Complete 05/22/19 18:33 Nasal Nares - Final Complete 05/23/19 14:00 Stool Clostridium difficile Toxin Assay - Final Complete 05/22/19 21:46 Urine,Clean Catch Urine Culture - Preliminary Strep Species, Beta Hemolytic Resulted Laboratory Tests 05/24/19 20:30: Chlamydia trachomatis RNA [Pending], Neisseria gonorrhoeae RNA [Pending] 05/25/19 04:30: White Blood Count [Pending], Red Blood Count 2.67L, Hemoglobin 8.4L, Hematocrit 24.3L, Mean Corpuscular Volume 91, Mean Corpuscular Hemoglobin 31.5H, Mean Corpuscular Hemoglobin Concent 34.6, Red Cell Distribution Width 15.2H, Platelet Count 68L, Mean Platelet Volume 7.7, Neutrophils (%) (Auto) , Lymphocytes (%) (Auto) , Monocytes (%) (Auto) , Eosinophils (%) (Auto) , Basophils (%) (Auto) , Differential Total Cells Counted 100, Neutrophils % ( Manual) 84H, Lymphocytes % (Manual) 12L, Monocytes % (Manual) 3, Eosinophils % ( Manual) 0, Basophils % (Manual) 1, Band Neutrophils 0, Lymphocytes [Pending], Platelet Estimate DecreasedL, Platelet Morphology Normal, Hypochromasia 2+, Anisocytosis 1+, Erythrocyte Sedimentation Rate 105H, Sodium Level 145, Potassium Level 2.8L, Chloride Level 113H, Carbon Dioxide Level 22, Anion Gap 9 , Blood Urea Nitrogen 6L, Creatinine 0.7, Estimat Glomerular Filtration Rate > 60, Glucose Level 84, Calcium Level 7.6L, Phosphorus Level 2.8, Magnesium Level 1.8, Total Bilirubin 0.5, Aspartate Amino Transf (AST/SGOT) 18, Alanine Aminotransferase (ALT/SGPT) 16, Alkaline Phosphatase 54, C-Reactive Protein, Quantitative 7.1H, Total Protein 5.5L, Albumin 2.1L, Globulin 3.4, Albumin/ Globulin Ratio 0.6L, Percent CD3 Cells [Pending], Absolute CD3 Count [Pending], Percent CD4 Cells [Pending], Absolute CD4 Count [Pending], T-Lymphocyte CD4/CD8 Ratio [Pending], Percent CD8 Cells [Pending], Absolute CD8 Count [Pending], Rapid Plasma Reagin [Pending], HIV-1 RNA, Quantitative copies/mL [Pending], HIV- 1 RNA (PCR) log10 Value [Pending], HIV-1 RNA Ultraquantitative (PCR) [Pending], HIV Genotype [Pending] Current Medications Medications (Trade) Dose Ordered Sig/Ana Route PRN Reason Start Time Stop Time Status Last Admin Dose Admin Acetaminophen (Tylenol) 650 mg Q4H PRN ORAL fever (T>100.5) 05/23/19 19:15 06/21/19 23:14 05/24/19 10:33 Albuterol/ Ipratropium (Albuterol/ Ipratropium) 3 ml Q4H PRN HHN Shortness of Breath 05/23/19 17:15 05/28/19 17:14 Chlorhexidine Gluconate (Jessie-Hex 2%) 1 applic DAILY@2000 TOPIC 05/24/19 20:00 06/23/19 19:59 05/24/19 21:08 Heparin Sodium (Porcine) (Heparin 5000 units/ml) 5,000 units EVERY 12 HOURS SUBQ 05/23/19 21:00 06/22/19 08:59 Loperamide HCl (Imodium) 2 mg Q4H PRN ORAL Diarrhea 05/23/19 18:15 06/22/19 14:14 Meropenem 1 gm/ Sodium Chloride 55 ml @ 110 mls/hr Q8HR IVPB 05/23/19 22:00 05/28/19 14:59 05/25/19 06:28 Olanzapine (ZyPREXA) 20 mg BEDTIME ORAL 05/25/19 21:00 06/24/19 20:59 Ondansetron HCl (Zofran) 4 mg Q6H PRN IVP Nausea & Vomiting 05/23/19 17:15 06/21/19 23:14 Pantoprazole (Protonix) 40 mg DAILY@0630 IVP 05/24/19 06:30 06/22/19 06:29 05/25/19 06:29 Potassium Chloride (K-Dur) 40 meq ONCE ORAL 05/25/19 14:00 05/25/19 15:30 Promethazine HCl/ Codeine (Phenergan with Codeine) 5 ml Q4H PRN ORAL For Cough 05/23/19 17:15 06/22/19 17:14 Sodium Chloride 1,000 ml @ 100 mls/hr Q10H IVLG 05/23/19 17:15 06/21/19 23:11 05/25/19 06:28 Theophylline (Nicanor-Dur) 100 mg EVERY 12 HOURS ORAL 05/23/19 21:00 06/22/19 20:59 05/25/19 08:33 Trimethoprim/ Sulfamethoxazole 20 ml/Dextrose 570 ml @ 380 mls/hr [id number] BACTRIM IV 05/24/19 16:00 05/31/19 15:59 05/25/19 08:33 Yung Daniels MD May 25, 2019 13:01
--- NOTE | 2019-05-25 14:42 | General Progress Note ---
Assessment/Plan Problem List: (1) Pneumonia ICD Codes: J18.9 - Pneumonia, unspecified organism SNOMED: 924829154 (2) Tachycardia ICD Codes: R00.0 - Tachycardia, unspecified SNOMED: 8235893 (3) Sepsis ICD Codes: A41.9 - Sepsis, unspecified organism SNOMED: 81974581 (4) Syncope ICD Codes: R55 - Syncope and collapse SNOMED: 503233681 (5) Schizophrenia ICD Codes: F20.9 - Schizophrenia, unspecified SNOMED: 32246143 Status: unchanged Assessment/Plan: o2 pulm tx abc pt diet eval cbc bmp am dc plan snf Subjective Constitutional: Reports: weakness Allergies: Coded Allergies: No Known Allergies (Unverified , 05/22/19) All Systems: reviewed and negative except above Subjective o2nc calm in bed Objective Last 24 Hour Vital Signs Date Time Temp Pulse Resp B/P (MAP) Pulse Ox O2 Delivery O2 Flow Rate FiO2 05/25/19 12:00 98.2 72 18 126/68 (87) 99 05/25/19 12:00 81 05/25/19 11:14 Nasal Cannula 2.0 28 05/25/19 11:14 Nasal Cannula 2.0 28 05/25/19 09:00 Nasal Cannula 2.0 Nasal Cannula 2.0 05/25/19 08:05 91 05/25/19 08:00 61 05/25/19 08:00 64 05/25/19 08:00 98.1 61 18 119/74 (89) 100 05/25/19 07:55 57 05/25/19 07:23 73 20 99 Nasal Cannula 2.0 28 05/25/19 07:18 69 18 98 Nasal Cannula 2.0 28 05/25/19 04:00 97.5 57 16 110/63 (79) 99 05/25/19 04:00 56 05/25/19 03:24 Nasal Cannula 2.0 28 05/25/19 03:24 Nasal Cannula 2.0 28 05/25/19 00:00 54 05/25/19 00:00 97.9 60 16 118/71 (87) 99 05/24/19 23:45 58 18 99 Nasal Cannula 2.0 28 05/24/19 23:44 58 18 99 Nasal Cannula 2.0 28 05/24/19 21:00 Nasal Cannula 2.0 05/24/19 20:00 72 05/24/19 20:00 96.8 63 17 116/73 (87) 99 05/24/19 19:15 67 18 99 Nasal Cannula 2.0 28 05/24/19 19:14 67 18 99 Nasal Cannula 2.0 28 05/24/19 16:00 98.6 61 18 124/74 (91) 98 05/24/19 16:00 63 Intake and Output 05/24/19 05/25/19 19:00 07:00 Intake Total 240 ml 1885 ml Output Total 1800 ml 1300 ml Balance -1560 ml 585 ml Intake Oral 140 ml 120 ml IV Total 100 ml 1765 ml Output Urine Total 1800 ml 1300 ml # Voids 3 3 Laboratory Tests 05/24/19 20:30: Chlamydia trachomatis RNA [Pending], Neisseria gonorrhoeae RNA [Pending] 05/25/19 04:30: White Blood Count [Pending], Red Blood Count 2.67L, Hemoglobin 8.4L, Hematocrit 24.3L, Mean Corpuscular Volume 91, Mean Corpuscular Hemoglobin 31.5H, Mean Corpuscular Hemoglobin Concent 34.6, Red Cell Distribution Width 15.2H, Platelet Count 68L, Mean Platelet Volume 7.7, Neutrophils (%) (Auto) , Lymphocytes (%) (Auto) , Monocytes (%) (Auto) , Eosinophils (%) (Auto) , Basophils (%) (Auto) , Differential Total Cells Counted 100, Neutrophils % ( Manual) 84H, Lymphocytes % (Manual) 12L, Monocytes % (Manual) 3, Eosinophils % ( Manual) 0, Basophils % (Manual) 1, Band Neutrophils 0, Lymphocytes [Pending], Platelet Estimate DecreasedL, Platelet Morphology Normal, Hypochromasia 2+, Anisocytosis 1+, Erythrocyte Sedimentation Rate 105H, Sodium Level 145, Potassium Level 2.8L, Chloride Level 113H, Carbon Dioxide Level 22, Anion Gap 9 , Blood Urea Nitrogen 6L, Creatinine 0.7, Estimat Glomerular Filtration Rate > 60, Glucose Level 84, Calcium Level 7.6L, Phosphorus Level 2.8, Magnesium Level 1.8, Total Bilirubin 0.5, Aspartate Amino Transf (AST/SGOT) 18, Alanine Aminotransferase (ALT/SGPT) 16, Alkaline Phosphatase 54, C-Reactive Protein, Quantitative 7.1H, Total Protein 5.5L, Albumin 2.1L, Globulin 3.4, Albumin/ Globulin Ratio 0.6L, Percent CD3 Cells [Pending], Absolute CD3 Count [Pending], Percent CD4 Cells [Pending], Absolute CD4 Count [Pending], T-Lymphocyte CD4/CD8 Ratio [Pending], Percent CD8 Cells [Pending], Absolute CD8 Count [Pending], Rapid Plasma Reagin [Pending], HIV-1 RNA, Quantitative copies/mL [Pending], HIV- 1 RNA (PCR) log10 Value [Pending], HIV-1 RNA Ultraquantitative (PCR) [Pending], HIV Genotype [Pending] Height (Feet): 5 Height (Inches): 10.00 Weight (Pounds): 146 General Appearance: lethargic EENT: normal ENT inspection Neck: normal alignment Cardiovascular: normal peripheral pulses, normal rate, regular rhythm Respiratory/Chest: chest wall non-tender, lungs clear, normal breath sounds Abdomen: normal bowel sounds, non tender, soft Extremities: normal inspection Edema: no edema noted Arm (L), no edema noted Arm (R), no edema noted Leg (L), no edema noted Leg (R), no edema noted Pedal (L), no edema noted Pedal (R), no edema noted Generalized Neurologic: motor weakness Skin: normal pigmentation, warm/dry Junior Hicks DO May 25, 2019 14:41
--- NOTE | 2019-05-25 14:47 | Infectious Diseases Prog Note ---
Assessment/Plan Assessment/Plan Assessment: Septic Shock, SP PNA- r/o PCP given new hIV dx, unknown Cd4 at this point Gram positive bacteremia- contaminant Probable UTI -05/24 sp cx p -05/22 Bcx 04/29 CONS; 05/24Bcx p -u/a wbc 10-15, nit neg, leuk +1; ux STREP SPECIES, BETA HEMOLYTIC COLONY COUNT: 40,000 - 50,000 CFU/ML -Influenza PCR neg -CXR: Redemonstration of increased opacity in the right upper lobe which is slightly better aerated. Right central line terminates in the cavoatrial junction. Fever; SP Leukocytosis, SP -CT head: No acute intracranial pathology. Right scalp operative bashir. Parenchymal volume loss, chronic and of likely no acute abnormality. Right ethmoidal and left sphenoid sinus findings suggesting sinusitis. 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 Will continue to follow along with you. Discussed with RN. Subjective Allergies: Coded Allergies: No Known Allergies (Unverified , 05/22/19) Subjective afebrile >48hrs at 2l NC Objective Vital Signs Last 24 Hour Vital Signs Date Time Temp Pulse Resp B/P (MAP) Pulse Ox O2 Delivery O2 Flow Rate FiO2 05/25/19 12:00 98.2 72 18 126/68 (87) 99 05/25/19 12:00 81 05/25/19 11:14 Nasal Cannula 2.0 28 05/25/19 11:14 Nasal Cannula 2.0 28 05/25/19 09:00 Nasal Cannula 2.0 Nasal Cannula 2.0 05/25/19 08:05 91 05/25/19 08:00 61 05/25/19 08:00 64 05/25/19 08:00 98.1 61 18 119/74 (89) 100 05/25/19 07:55 57 05/25/19 07:23 73 20 99 Nasal Cannula 2.0 28 05/25/19 07:18 69 18 98 Nasal Cannula 2.0 28 05/25/19 04:00 97.5 57 16 110/63 (79) 99 05/25/19 04:00 56 05/25/19 03:24 Nasal Cannula 2.0 28 05/25/19 03:24 Nasal Cannula 2.0 28 05/25/19 00:00 54 05/25/19 00:00 97.9 60 16 118/71 (87) 99 05/24/19 23:45 58 18 99 Nasal Cannula 2.0 28 05/24/19 23:44 58 18 99 Nasal Cannula 2.0 28 05/24/19 21:00 Nasal Cannula 2.0 05/24/19 20:00 72 05/24/19 20:00 96.8 63 17 116/73 (87) 99 05/24/19 19:15 67 18 99 Nasal Cannula 2.0 28 05/24/19 19:14 67 18 99 Nasal Cannula 2.0 28 05/24/19 16:00 98.6 61 18 124/74 (91) 98 05/24/19 16:00 63 Height (Feet): 5 Height (Inches): 10.00 Weight (Pounds): 146 Objective General Appearance: alert, moderate distress, thin Head: normocephalic, atraumatic Eyes: bilateral eye normal inspection, bilateral eye PERRL ENT: hearing grossly normal, normal pharynx, no angioedema, normal voice Neck: full range of motion, supple, no meningismus, supple/symm/no masses Respiratory: chest non-tender, lungs clear, normal breath sounds, no rhonchi, no wheezing, speaking full sentences Cardiovascular: no murmur, normal capillary refill, tachycardia Gastrointestinal: normal bowel sounds, non tender, soft, non-distended, no guarding, no rebound Genitourinary: normal inspection, no CVA tenderness Musculoskeletal: back normal, digits/nails normal, no calf tenderness Neurologic: alert, oriented Skin: no rash, normal color, diaphoresis Microbiology Date/Time Source Procedure Growth Status 05/22/19 18:33 Blood Blood Culture - Preliminary NO GROWTH AFTER 48 HOURS Resulted 05/22/19 18:33 Blood Blood Culture - Preliminary Staphylococcus Sp Coag Neg Resulted 05/24/19 20:21 Sputum Gram Stain - Final Resulted 05/24/19 20:21 Sputum Sputum Culture Pending Resulted 05/22/19 18:33 Nasal Nares - Final Complete 05/22/19 18:33 Nasal Nares - Final Complete 05/23/19 14:00 Stool Clostridium difficile Toxin Assay - Final Complete 05/22/19 21:46 Urine,Clean Catch Urine Culture - Preliminary Strep Species, Beta Hemolytic Resulted Laboratory Tests Test 05/24/19 20:30 05/25/19 04:30 Chlamydia trachomatis RNA Pending Neisseria gonorrhoeae RNA Pending White Blood Count Pending Red Blood Count 2.67 M/UL (4.70-6.10) L Hemoglobin 8.4 G/DL (14.2-18.0) L Hematocrit 24.3 % (42.0-52.0) L Mean Corpuscular Volume 91 FL (80-99) Mean Corpuscular Hemoglobin 31.5 PG (27.0-31.0) H Mean Corpuscular Hemoglobin Concent 34.6 G/DL (32.0-36.0) Red Cell Distribution Width 15.2 % (11.6-14.8) H Platelet Count 68 K/UL (150-450) L Mean Platelet Volume 7.7 FL (6.5-10.1) Neutrophils (%) (Auto) % (45.0-75.0) Lymphocytes (%) (Auto) % (20.0-45.0) Monocytes (%) (Auto) % (1.0-10.0) Eosinophils (%) (Auto) % (0.0-3.0) Basophils (%) (Auto) % (0.0-2.0) Differential Total Cells Counted 100 Neutrophils % (Manual) 84 % (45-75) H Lymphocytes % (Manual) 12 % (20-45) L Monocytes % (Manual) 3 % (1-10) Eosinophils % (Manual) 0 % (0-3) Basophils % (Manual) 1 % (0-2) Band Neutrophils 0 % (0-8) Lymphocytes Pending Platelet Estimate Decreased L Platelet Morphology Normal Hypochromasia 2+ Anisocytosis 1+ Erythrocyte Sedimentation Rate 105 MM/HR (0-15) H Sodium Level 145 MMOL/L (136-145) Potassium Level 2.8 MMOL/L (3.5-5.1) L Chloride Level 113 MMOL/L (98-107) H Carbon Dioxide Level 22 MMOL/L (21-32) Anion Gap 9 mmol/L (5-15) Blood Urea Nitrogen 6 mg/dL (7-18) L Creatinine 0.7 MG/DL (0.55-1.30) Estimat Glomerular Filtration Rate > 60 mL/min (>60) Glucose Level 84 MG/DL (74-106) Calcium Level 7.6 MG/DL (8.5-10.1) L Phosphorus Level 2.8 MG/DL (2.5-4.9) Magnesium Level 1.8 MG/DL (1.8-2.4) Total Bilirubin 0.5 MG/DL (0.2-1.0) Aspartate Amino Transf (AST/SGOT) 18 U/L (15-37) Alanine Aminotransferase (ALT/SGPT) 16 U/L (12-78) Alkaline Phosphatase 54 U/L (46-116) C-Reactive Protein, Quantitative 7.1 mg/dL (0.00-0.90) H Total Protein 5.5 G/DL (6.4-8.2) L Albumin 2.1 G/DL (3.4-5.0) L Globulin 3.4 g/dL Albumin/Globulin Ratio 0.6 (1.0-2.7) L Percent CD3 Cells Pending Absolute CD3 Count Pending Percent CD4 Cells Pending Absolute CD4 Count Pending T-Lymphocyte CD4/CD8 Ratio Pending Percent CD8 Cells Pending Absolute CD8 Count Pending Rapid Plasma Reagin Pending HIV-1 RNA, Quantitative copies/mL Pending HIV-1 RNA (PCR) log10 Value Pending HIV-1 RNA Ultraquantitative (PCR) Pending HIV Genotype Pending Current Medications Medications (Trade) Dose Ordered Sig/Ana Route PRN Reason Start Time Stop Time Status Last Admin Dose Admin Acetaminophen (Tylenol) 650 mg Q4H PRN ORAL fever (T>100.5) 05/23/19 19:15 06/21/19 23:14 05/24/19 10:33 Albuterol/ Ipratropium (Albuterol/ Ipratropium) 3 ml Q4H PRN HHN Shortness of Breath 05/23/19 17:15 05/28/19 17:14 Chlorhexidine Gluconate (Jessie-Hex 2%) 1 applic DAILY@2000 TOPIC 05/24/19 20:00 06/23/19 19:59 05/24/19 21:08 Heparin Sodium (Porcine) (Heparin 5000 units/ml) 5,000 units EVERY 12 HOURS SUBQ 05/23/19 21:00 06/22/19 08:59 Loperamide HCl (Imodium) 2 mg Q4H PRN ORAL Diarrhea 05/23/19 18:15 06/22/19 14:14 Meropenem 1 gm/ Sodium Chloride 55 ml @ 110 mls/hr Q8HR IVPB 05/23/19 22:00 05/28/19 14:59 05/25/19 13:55 Olanzapine (ZyPREXA) 20 mg BEDTIME ORAL 05/25/19 21:00 06/24/19 20:59 Ondansetron HCl (Zofran) 4 mg Q6H PRN IVP Nausea & Vomiting 05/23/19 17:15 06/21/19 23:14 Pantoprazole (Protonix) 40 mg DAILY@0630 IVP 05/24/19 06:30 06/22/19 06:29 05/25/19 06:29 Potassium Chloride (K-Dur) 40 meq ONCE ORAL 05/25/19 14:00 05/25/19 15:30 05/25/19 13:54 Promethazine HCl/ Codeine (Phenergan with Codeine) 5 ml Q4H PRN ORAL For Cough 05/23/19 17:15 06/22/19 17:14 Sodium Chloride 1,000 ml @ 100 mls/hr Q10H IVLG 05/23/19 17:15 06/21/19 23:11 05/25/19 06:28 Theophylline (Nicanor-Dur) 100 mg EVERY 12 HOURS ORAL 05/23/19 21:00 06/22/19 20:59 05/25/19 08:33 Trimethoprim/ Sulfamethoxazole 20 ml/Dextrose 570 ml @ 380 mls/hr [id number] BACTRIM IV 05/24/19 16:00 05/31/19 15:59 05/25/19 08:33 Evelia Suarez M.D. May 25, 2019 14:47
--- NOTE | 2019-05-25 15:49 | Hematology/Onc Progress Note ---
Assessment/Plan Assessment/Plan Assessment and Recs: # Thrombocytopenia - potential causes multifactorial, evaluate liver and viral etiologies to begin, in this case HIV++ being w/u by id, also with pna being treated --> Hep panel and HIV ++ --> US abd to evaluate for cirrhosis and hsm ordered - positive for splenomegaly --> Peripheral smear ordered to evaluate for blasts /schistocytes --> abx and other meds have been reviewed --> ok for ppx if plt >50k w/ either heparin or lovenox --> Transfuse if Plt < 20k and fever, or if Plt < 10k without fever --> plt trend 90-->64-->54k-->68 --> Rule out DIC and treat underlying cause # Anemia of chronic disease due to underlying chronic medical issues, multifactorial v Gi bleed --> Anemia workup has been ordered, rule out gi bleed --> No evidence of hemolysis is noted, peripheral smear has been reviewed. --> Hgb goal >7. Transfuse prn. --> Epogen or iron at this time is not particularly indicated --> Medications have been reviewed --> low threshold for gi evaluation in case has occult + --> iron 5, tibc 157, ferritin --> hgb trend: 8.4 # Sepsis --> likely due to pna --> HIV workup --> on abx: bactrim/coral --> off pressors # Syncope # Tachycardia # Schizophrenia Appreciate consultation and dw RN Subjective Allergies: Coded Allergies: No Known Allergies (Unverified , 05/22/19) Subjective 05/25: no acute distress, us abd shows splenomegaly, labs reviewed, nc 2l Objective Objective Current Medications Medications (Trade) Dose Ordered Sig/Ana Route PRN Reason Start Time Stop Time Status Last Admin Dose Admin Acetaminophen (Tylenol) 650 mg Q4H PRN ORAL fever (T>100.5) 05/23/19 19:15 06/21/19 23:14 05/24/19 10:33 Albuterol/ Ipratropium (Albuterol/ Ipratropium) 3 ml Q4H PRN HHN Shortness of Breath 05/23/19 17:15 05/28/19 17:14 Chlorhexidine Gluconate (Jessie-Hex 2%) 1 applic DAILY@1999 TOPIC 05/24/19 20:00 2/28/20 19:59 05/24/19 21:08 Heparin Sodium (Porcine) (Heparin 5000 units/ml) 5,000 units EVERY 12 HOURS SUBQ 05/23/19 21:00 06/22/19 08:59 Loperamide HCl (Imodium) 2 mg Q4H PRN ORAL Diarrhea 05/23/19 18:15 06/22/19 14:14 Meropenem 1 gm/ Sodium Chloride 55 ml @ 110 mls/hr Q8HR IVPB 05/23/19 22:00 05/28/19 14:59 05/25/19 13:55 Olanzapine (ZyPREXA) 20 mg BEDTIME ORAL 05/25/19 21:00 06/24/19 20:59 Ondansetron HCl (Zofran) 4 mg Q6H PRN IVP Nausea & Vomiting 05/23/19 17:15 06/21/19 23:14 Pantoprazole (Protonix) 40 mg DAILY@0630 IVP 05/24/19 06:30 06/22/19 06:29 05/25/19 06:29 Promethazine HCl/ Codeine (Phenergan with Codeine) 5 ml Q4H PRN ORAL For Cough 05/23/19 17:15 06/22/19 17:14 Sodium Chloride 1,000 ml @ 100 mls/hr Q10H IVLG 05/23/19 17:15 06/21/19 23:11 05/25/19 06:28 Theophylline (Nicanor-Dur) 100 mg EVERY 12 HOURS ORAL 05/23/19 21:00 06/22/19 20:59 05/25/19 08:33 Trimethoprim/ Sulfamethoxazole 20 ml/Dextrose 570 ml @ 380 mls/hr [id number] BACTRIM IV 05/24/19 16:00 05/31/19 15:59 05/25/19 08:33 Last 24 Hour Vital Signs Date Time Temp Pulse Resp B/P (MAP) Pulse Ox O2 Delivery O2 Flow Rate FiO2 05/25/19 15:25 71 18 98 Nasal Cannula 2.0 28 05/25/19 15:20 68 20 97 Nasal Cannula 2.0 28 05/25/19 12:00 98.2 72 18 126/68 (87) 99 05/25/19 12:00 81 05/25/19 11:14 Nasal Cannula 2.0 28 05/25/19 11:14 Nasal Cannula 2.0 28 05/25/19 09:00 Nasal Cannula 2.0 Nasal Cannula 2.0 05/25/19 08:05 91 05/25/19 08:00 61 05/25/19 08:00 64 05/25/19 08:00 98.1 61 18 119/74 (89) 100 05/25/19 07:55 57 05/25/19 07:23 73 20 99 Nasal Cannula 2.0 28 05/25/19 07:18 69 18 98 Nasal Cannula 2.0 28 05/25/19 04:00 97.5 57 16 110/63 (79) 99 05/25/19 04:00 56 05/25/19 03:24 Nasal Cannula 2.0 28 05/25/19 03:24 Nasal Cannula 2.0 28 05/25/19 00:00 54 05/25/19 00:00 97.9 60 16 118/71 (87) 99 05/24/19 23:45 58 18 99 Nasal Cannula 2.0 28 05/24/19 23:44 58 18 99 Nasal Cannula 2.0 28 05/24/19 21:00 Nasal Cannula 2.0 05/24/19 20:00 72 05/24/19 20:00 96.8 63 17 116/73 (87) 99 05/24/19 19:15 67 18 99 Nasal Cannula 2.0 28 05/24/19 19:14 67 18 99 Nasal Cannula 2.0 28 05/24/19 16:00 98.6 61 18 124/74 (91) 98 05/24/19 16:00 63 05/24/19 12:00 98.2 78 18 113/65 (81) 98 05/24/19 12:00 66 05/24/19 11:03 98.2 05/24/19 09:00 Nasal Cannula 2.0 05/24/19 08:00 98.1 75 19 110/64 (79) 100 05/24/19 08:00 75 05/24/19 04:00 97.7 78 18 114/66 (82) 99 05/24/19 04:00 61 05/24/19 03:16 Nasal Cannula 2.0 28 05/24/19 03:16 Nasal Cannula 2.0 28 05/24/19 00:00 83 05/24/19 00:00 97.2 100 20 119/76 (90) 99 05/23/19 23:10 81 18 98 Nasal Cannula 2.0 28 05/23/19 23:10 88 18 98 Nasal Cannula 2.0 28 05/23/19 21:00 Nasal Cannula 2.0 05/23/19 20:00 93 05/23/19 20:00 99.7 90 18 110/67 (81) 99 05/23/19 19:35 85 16 98 Nasal Cannula 2.0 24 05/23/19 19:35 91 20 99 Nasal Cannula 2.0 24 05/23/19 16:43 98.4 83 22 105/63 (77) 98 05/23/19 16:00 98.1 82 26 109/67 (81) 100 05/23/19 16:00 82 05/23/19 16:00 Room Air Intake and Output 05/24/19 05/25/19 19:00 07:00 Intake Total 240 ml 1885 ml Output Total 1800 ml 1300 ml Balance -1560 ml 585 ml Intake Oral 140 ml 120 ml IV Total 100 ml 1765 ml Output Urine Total 1800 ml 1300 ml # Voids 3 3 Labs Test 05/22/19 18:26 05/22/19 18:33 05/22/19 21:46 05/22/19 22:00 Sodium Level 137 MMOL/L (136-145) Potassium Level 3.4 MMOL/L (3.5-5.1) Chloride Level 103 MMOL/L (98-107) Carbon Dioxide Level 24 MMOL/L (21-32) Anion Gap 10 mmol/L (5-15) Blood Urea Nitrogen 15 mg/dL (7-18) Creatinine 1.4 MG/DL (0.55-1.30) Estimat Glomerular Filtration Rate 54.6 mL/min (>60) Glucose Level 111 MG/DL (74-106) Calcium Level 8.1 MG/DL (8.5-10.1) Total Bilirubin 1.2 MG/DL (0.2-1.0) Direct Bilirubin 0.3 MG/DL (0.0-0.3) Aspartate Amino Transf (AST/SGOT) 16 U/L (15-37) Alanine Aminotransferase (ALT/SGPT) 15 U/L (12-78) Alkaline Phosphatase 74 U/L (46-116) Total Protein 7.0 G/DL (6.4-8.2) Albumin 3.2 G/DL (3.4-5.0) Globulin 3.8 g/dL Albumin/Globulin Ratio 0.8 (1.0-2.7) White Blood Count 12.8 K/UL (4.8-10.8) Red Blood Count 3.38 M/UL (4.70-6.10) Hemoglobin 10.6 G/DL (14.2-18.0) Hematocrit 30.9 % (42.0-52.0) Mean Corpuscular Volume 91 FL (80-99) Mean Corpuscular Hemoglobin 31.4 PG (27.0-31.0) Mean Corpuscular Hemoglobin Concent 34.4 G/DL (32.0-36.0) Red Cell Distribution Width 15.1 % (11.6-14.8) Platelet Count 90 K/UL (150-450) Mean Platelet Volume 8.3 FL (6.5-10.1) Neutrophils (%) (Auto) % (45.0-75.0) Lymphocytes (%) (Auto) % (20.0-45.0) Monocytes (%) (Auto) % (1.0-10.0) Eosinophils (%) (Auto) % (0.0-3.0) Basophils (%) (Auto) % (0.0-2.0) Differential Total Cells Counted 100 Neutrophils % (Manual) 79 % (45-75) Lymphocytes % (Manual) 13 % (20-45) Monocytes % (Manual) 1 % (1-10) Eosinophils % (Manual) 0 % (0-3) Basophils % (Manual) 1 % (0-2) Band Neutrophils 6 % (0-8) Platelet Estimate Decreased Platelet Morphology Normal Hypochromasia 1+ Anisocytosis 1+ Prothrombin Time 11.6 SEC (9.30-11.50) Prothromb Time International Ratio 1.1 (0.9-1.1) Activated Partial Thromboplast Time 31 SEC (23-33) Lactic Acid Level 2.50 mmol/L (0.4-2.0) 1.90 mmol/L (0.66-2.22) Total Creatine Kinase 46 U/L (26-308) Troponin I 0.000 ng/mL (0.000-0.056) Pro-B-Type Natriuretic Peptide 1128 pg/mL (0-125) Urine Color Yellow Urine Appearance Slightly cloudy Urine pH 7 (4.5-8.0) Urine Specific Morton 1.005 (1.005-1.035) Urine Protein 1+ (NEGATIVE) Urine Glucose (UA) Negative (NEGATIVE) Urine Ketones Negative (NEGATIVE) Urine Blood Negative (NEGATIVE) Urine Nitrite Negative (NEGATIVE) Urine Bilirubin Negative (NEGATIVE) Urine Urobilinogen 1 MG/DL (0.0-1.0) Urine Leukocyte Esterase 1+ (NEGATIVE) Urine RBC 0-2 /HPF (0 - 0) Urine WBC 10-15 /HPF (0 - 0) Urine Squamous Epithelial Cells Occasional /LPF Urine Bacteria Many /HPF (NONE) Urine Opiates Screen Negative (NEGATIVE) Urine Barbiturates Screen Negative (NEGATIVE) Phencyclidine (PCP) Screen Negative (NEGATIVE) Urine Amphetamines Screen Negative (NEGATIVE) Urine Benzodiazepines Screen Negative (NEGATIVE) Urine Cocaine Screen Negative (NEGATIVE) Urine Marijuana (THC) Screen Negative (NEGATIVE) Test 05/23/19 05:40 05/23/19 09:18 05/23/19 11:00 05/23/19 14:00 White Blood Count 16.9 K/UL (4.8-10.8) Red Blood Count 3.10 M/UL (4.70-6.10) Hemoglobin 9.9 G/DL (14.2-18.0) Hematocrit 28.4 % (42.0-52.0) Mean Corpuscular Volume 92 FL (80-99) Mean Corpuscular Hemoglobin 32.1 PG (27.0-31.0) Mean Corpuscular Hemoglobin Concent 35.0 G/DL (32.0-36.0) Red Cell Distribution Width 15.3 % (11.6-14.8) Platelet Count 63 K/UL (150-450) Mean Platelet Volume 6.8 FL (6.5-10.1) Neutrophils (%) (Auto) % (45.0-75.0) Lymphocytes (%) (Auto) % (20.0-45.0) Monocytes (%) (Auto) % (1.0-10.0) Eosinophils (%) (Auto) % (0.0-3.0) Basophils (%) (Auto) % (0.0-2.0) Differential Total Cells Counted 100 Neutrophils % (Manual) 88 % (45-75) Lymphocytes % (Manual) 4 % (20-45) Monocytes % (Manual) 2 % (1-10) Eosinophils % (Manual) 0 % (0-3) Basophils % (Manual) 0 % (0-2) Band Neutrophils 6 % (0-8) Other Cell Type Pathologist review Platelet Estimate Decreased Platelet Morphology Normal Anisocytosis 1+ Sodium Level 144 MMOL/L (136-145) Potassium Level 3.3 MMOL/L (3.5-5.1) Chloride Level 113 MMOL/L (98-107) Carbon Dioxide Level 20 MMOL/L (21-32) Anion Gap 11 mmol/L (5-15) Blood Urea Nitrogen 14 mg/dL (7-18) Creatinine 1.1 MG/DL (0.55-1.30) Estimat Glomerular Filtration Rate > 60 mL/min (>60) Glucose Level 128 MG/DL (74-106) Calcium Level 7.2 MG/DL (8.5-10.1) Total Bilirubin 0.9 MG/DL (0.2-1.0) Direct Bilirubin 0.3 MG/DL (0.0-0.3) Aspartate Amino Transf (AST/SGOT) 20 U/L (15-37) Alanine Aminotransferase (ALT/SGPT) 8 U/L (12-78) Alkaline Phosphatase 63 U/L (46-116) Total Protein 5.7 G/DL (6.4-8.2) Albumin 2.6 G/DL (3.4-5.0) Globulin 3.1 g/dL Albumin/Globulin Ratio 0.8 (1.0-2.7) Arterial Blood pH 7.439 (7.350-7.450) Arterial Blood Partial Pressure CO2 28.4 mmHg (35.0-45.0) Arterial Blood Partial Pressure O2 121.8 mmHg (75.0-100.0) Arterial Blood HCO3 18.8 mmol/L (22.0-26.0) Arterial Blood Oxygen Saturation 97.7 % (95-100) Arterial Blood Base Excess -4.4 (-2-2) Bola Test Positive Erythrocyte Sedimentation Rate 90 MM/HR (0-15) Reticulocyte Count 2.7 % (0.5-2.0) Prothrombin Time 13.4 SEC (9.30-11.50) Prothromb Time International Ratio 1.3 (0.9-1.1) Activated Partial Thromboplast Time 36 SEC (23-33) Iron Level 5 ug/dL (50-175) Total Iron Binding Capacity 137 ug/dL (250-450) Percent Iron Saturation 4 % (15-50) Unsaturated Iron Binding 132 ug/dL (112-346) Lactate Dehydrogenase 167 U/L (81-234) Carcinoembryonic Antigen 1.0 ng/mL (0.0-4.7) Vitamin B12 Level 296 PG/ML (193-986) Folate 5.3 NG/ML (8.6-58.9) Stool Occult Blood Negative (NEGATIVE) Test 05/23/19 14:05 05/23/19 22:00 05/24/19 00:00 05/24/19 06:20 Random Amikacin Level 2.3 MG/L Troponin I 0.000 ng/mL (0.000-0.056) 0.000 ng/mL (0.000-0.056) HIV-1 Antibody Positive (Negative) HIV-2 Antibody Negative (Negative) HIV Note Hiv-1 positive (.) White Blood Count 10.0 K/UL (4.8-10.8) Red Blood Count 2.67 M/UL (4.70-6.10) Hemoglobin 8.3 G/DL (14.2-18.0) Hematocrit 24.5 % (42.0-52.0) Mean Corpuscular Volume 92 FL (80-99) Mean Corpuscular Hemoglobin 31.1 PG (27.0-31.0) Mean Corpuscular Hemoglobin Concent 33.8 G/DL (32.0-36.0) Red Cell Distribution Width 15.5 % (11.6-14.8) Platelet Count 54 K/UL (150-450) Mean Platelet Volume 8.3 FL (6.5-10.1) Neutrophils (%) (Auto) % (45.0-75.0) Lymphocytes (%) (Auto) % (20.0-45.0) Monocytes (%) (Auto) % (1.0-10.0) Eosinophils (%) (Auto) % (0.0-3.0) Basophils (%) (Auto) % (0.0-2.0) Differential Total Cells Counted 100 Neutrophils % (Manual) 82 % (45-75) Lymphocytes % (Manual) 14 % (20-45) Monocytes % (Manual) 4 % (1-10) Eosinophils % (Manual) 0 % (0-3) Basophils % (Manual) 0 % (0-2) Band Neutrophils 0 % (0-8) Platelet Estimate Decreased Platelet Morphology Normal Hypochromasia 1+ Anisocytosis 1+ Sodium Level 145 MMOL/L (136-145) Potassium Level 3.2 MMOL/L (3.5-5.1) Chloride Level 116 MMOL/L (98-107) Carbon Dioxide Level 20 MMOL/L (21-32) Anion Gap 9 mmol/L (5-15) Blood Urea Nitrogen 11 mg/dL (7-18) Creatinine 0.8 MG/DL (0.55-1.30) Estimat Glomerular Filtration Rate > 60 mL/min (>60) Glucose Level 94 MG/DL (74-106) Calcium Level 7.7 MG/DL (8.5-10.1) Phosphorus Level 2.0 MG/DL (2.5-4.9) Magnesium Level 2.0 MG/DL (1.8-2.4) Total Bilirubin 0.6 MG/DL (0.2-1.0) Aspartate Amino Transf (AST/SGOT) 17 U/L (15-37) Alanine Aminotransferase (ALT/SGPT) 13 U/L (12-78) Alkaline Phosphatase 54 U/L (46-116) Total Protein 5.4 G/DL (6.4-8.2) Albumin 2.1 G/DL (3.4-5.0) Globulin 3.3 g/dL Albumin/Globulin Ratio 0.6 (1.0-2.7) Thyroid Stimulating Hormone (TSH) 2.182 uiU/mL (0.358-3.740) Hepatitis A IgM Antibody Negative (Negative) Hepatitis B Surface Antigen Negative (Negative) Hepatitis B Core IgM Antibody Negative (Negative) Hepatitis C Antibody <0.1 s/co ratio HIV (1&2) Antibody Rapid Preliminary positive Test 05/24/19 12:45 05/24/19 20:30 05/25/19 04:30 Ferritin 903 NG/ML (8-388) Troponin I 0.000 ng/mL (0.000-0.056) Vancomycin Level Trough 5.5 ug/mL (5.0-12.0) White Blood Count 6.5 K/UL (4.8-10.8) Red Blood Count 2.67 M/UL (4.70-6.10) Hemoglobin 8.4 G/DL (14.2-18.0) Hematocrit 24.3 % (42.0-52.0) Mean Corpuscular Volume 91 FL (80-99) Mean Corpuscular Hemoglobin 31.5 PG (27.0-31.0) Mean Corpuscular Hemoglobin Concent 34.6 G/DL (32.0-36.0) Red Cell Distribution Width 15.2 % (11.6-14.8) Platelet Count 68 K/UL (150-450) Mean Platelet Volume 7.7 FL (6.5-10.1) Neutrophils (%) (Auto) % (45.0-75.0) Lymphocytes (%) (Auto) % (20.0-45.0) Monocytes (%) (Auto) % (1.0-10.0) Eosinophils (%) (Auto) % (0.0-3.0) Basophils (%) (Auto) % (0.0-2.0) Differential Total Cells Counted 100 Neutrophils % (Manual) 84 % (45-75) Lymphocytes % (Manual) 12 % (20-45) Monocytes % (Manual) 3 % (1-10) Eosinophils % (Manual) 0 % (0-3) Basophils % (Manual) 1 % (0-2) Band Neutrophils 0 % (0-8) Platelet Estimate Decreased Platelet Morphology Normal Hypochromasia 2+ Anisocytosis 1+ Erythrocyte Sedimentation Rate 105 MM/HR (0-15) Sodium Level 145 MMOL/L (136-145) Potassium Level 2.8 MMOL/L (3.5-5.1) Chloride Level 113 MMOL/L (98-107) Carbon Dioxide Level 22 MMOL/L (21-32) Anion Gap 9 mmol/L (5-15) Blood Urea Nitrogen 6 mg/dL (7-18) Creatinine 0.7 MG/DL (0.55-1.30) Estimat Glomerular Filtration Rate > 60 mL/min (>60) Glucose Level 84 MG/DL (74-106) Calcium Level 7.6 MG/DL (8.5-10.1) Phosphorus Level 2.8 MG/DL (2.5-4.9) Magnesium Level 1.8 MG/DL (1.8-2.4) Total Bilirubin 0.5 MG/DL (0.2-1.0) Aspartate Amino Transf (AST/SGOT) 18 U/L (15-37) Alanine Aminotransferase (ALT/SGPT) 16 U/L (12-78) Alkaline Phosphatase 54 U/L (46-116) C-Reactive Protein, Quantitative 7.1 mg/dL (0.00-0.90) Total Protein 5.5 G/DL (6.4-8.2) Albumin 2.1 G/DL (3.4-5.0) Globulin 3.4 g/dL Albumin/Globulin Ratio 0.6 (1.0-2.7) Micro Microbiology Date/Time Source Procedure Growth Status 05/24/19 20:21 Sputum Gram Stain - Final Resulted 05/24/19 20:21 Sputum Sputum Culture Pending Resulted Height (Feet): 5 Height (Inches): 10.00 Weight (Pounds): 146 Objective Physical Exam: Vitals: reviewed General Appearance: NAD HEENT: normocephalic, atraumatic Neck: non-tender, normal alignment Respiratory/Chest: normal breath sounds bilaterally Cardiovascular/Chest: normal peripheral pulses, normal rate Abdomen: normal bowel sounds, soft, nontender Extremities: normal range of motion Neuro: ++ anxious Romie Cox MD May 25, 2019 15:49
[2019-05-25 16:00] VITALS: BP 110/66
[2019-05-25 20:00] VITALS: BP 123/76
[2019-05-25] MEDS: OLANZapine 10mg tab ORAL SCH (21:36)
[2019-05-25] MEDS: Dyna-Hex 2% Top Sol 2oz TOPIC SCH (21:39)
[2019-05-26] VITALS: BP 139/79
[2019-05-26] MEDS: Bactrim 20ml in D5W 550ml IV SCH ×3 (00:52→16:41)
[2019-05-26 04:00] VITALS: BP 120/68
--- NOTE | 2019-05-26 05:51 | Hematology/Onc Progress Note ---
Assessment/Plan Assessment/Plan Assessment and Recs: # Thrombocytopenia - potential causes multifactorial, evaluate liver and viral etiologies to begin, in this case HIV++ being w/u by id, also with pna being treated --> Hep panel and HIV ++ and rx for id --> US abd to evaluate for cirrhosis and hsm ordered - positive for splenomegaly --> Peripheral smear ordered to evaluate for blasts /schistocytes --> is wnl --> abx and other meds have been reviewed --> ok for ppx if plt >50k w/ either heparin or lovenox --> Transfuse if Plt < 20k and fever, or if Plt < 10k without fever --> plt trend 90-->64-->54k-->68 --> Rule out DIC and treat underlying cause # Anemia of chronic disease due to underlying chronic medical issues, multifactorial v Gi bleed --> Anemia workup has been ordered, rule out gi bleed --> No evidence of hemolysis is noted, peripheral smear has been reviewed. --> Hgb goal >7. Transfuse prn. --> Epogen or iron at this time is not particularly indicated --> Medications have been reviewed --> low threshold for gi evaluation in case has occult + --> iron 5, tibc 157, ferritin >800 --> hgb trend: 8.4 # Sepsis --> likely due to pna --> HIV workup --> on abx: bactrim/coral --> off pressors # Syncope # Tachycardia # Schizophrenia Appreciate consultation and gale RN Subjective Constitutional: Denies: no symptoms, chills, fever, malaise, weakness, other HEENT: Denies: no symptoms, eye pain, blurred vision, tearing, double vision, ear pain, ear discharge, nose pain, nose congestion, throat pain, throat swelling, mouth pain, mouth swelling, other Cardiovascular: Denies: no symptoms, chest pain, edema, irregular heart rate, lightheadedness, palpitations, syncope, other Gastrointestinal/Abdominal: Denies: no symptoms, abdomen distended, abdominal pain, black stools, tarry stools, blood in stool, constipated, diarrhea, difficulty swallowing, nausea, poor appetite, poor fluid intake, rectal bleeding , vomiting, other Genitourinary: Denies: no symptoms, burning, discharge, frequency, flank pain, hematuria, incontinence, pain, urgency, other Neurologic/Psychiatric: Denies: no symptoms, anxiety, depressed, emotional problems, headache, numbness, paresthesia, pre-existing deficit, seizure, tingling, tremors, weakness, other Endocrine: Denies: no symptoms, excessive sweating, flushing, intolerance to cold, intolerance to heat, increased hunger, increased thirst, increased urine, unexplained weight gain, unexplained weight loss, other Allergies: Coded Allergies: No Known Allergies (Unverified , 05/22/19) Subjective 05/25: no acute distress, us abd shows splenomegaly, labs reviewed, nc 2l 05/26: labs have been reviewed, no night sweats, imaging is noted Objective Objective Current Medications Medications (Trade) Dose Ordered Sig/Ana Route PRN Reason Start Time Stop Time Status Last Admin Dose Admin Acetaminophen (Tylenol) 650 mg Q4H PRN ORAL fever (T>100.5) 05/23/19 19:15 06/21/19 23:14 05/24/19 10:33 Albuterol/ Ipratropium (Albuterol/ Ipratropium) 3 ml Q4H PRN HHN Shortness of Breath 05/23/19 17:15 05/28/19 17:14 Chlorhexidine Gluconate (Jessie-Hex 2%) 1 applic DAILY@1999 TOPIC 05/24/19 20:00 06/23/19 19:59 05/25/19 21:39 Heparin Sodium (Porcine) (Heparin 5000 units/ml) 5,000 units EVERY 12 HOURS SUBQ 05/23/19 21:00 06/22/19 08:59 Loperamide HCl (Imodium) 2 mg Q4H PRN ORAL Diarrhea 05/23/19 18:15 06/22/19 14:14 Meropenem 1 gm/ Sodium Chloride 55 ml @ 110 mls/hr Q8HR IVPB 05/23/19 22:00 05/28/19 14:59 05/25/19 21:36 Olanzapine (ZyPREXA) 20 mg BEDTIME ORAL 05/25/19 21:00 06/24/19 20:59 05/25/19 21:36 Ondansetron HCl (Zofran) 4 mg Q6H PRN IVP Nausea & Vomiting 05/23/19 17:15 06/21/19 23:14 Pantoprazole (Protonix) 40 mg ACBREAKFAST ORAL 05/26/19 06:30 06/25/19 06:29 Promethazine HCl/ Codeine (Phenergan with Codeine) 5 ml Q4H PRN ORAL For Cough 05/23/19 17:15 06/22/19 17:14 Sodium Chloride 1,000 ml @ 100 mls/hr Q10H IVLG 05/23/19 17:15 06/21/19 23:11 05/25/19 19:22 Theophylline (Nicanor-Dur) 100 mg EVERY 12 HOURS ORAL 05/23/19 21:00 06/22/19 20:59 05/25/19 21:37 Trimethoprim/ Sulfamethoxazole 20 ml/Dextrose 570 ml @ 380 mls/hr [id number] BACTRIM IV 05/24/19 16:00 05/31/19 15:59 05/26/19 00:52 Last 24 Hour Vital Signs Date Time Temp Pulse Resp B/P (MAP) Pulse Ox O2 Delivery O2 Flow Rate FiO2 05/26/19 03:20 Nasal Cannula 2.0 28 05/26/19 03:20 Nasal Cannula 2.0 28 05/26/19 00:00 97.7 66 18 139/79 (99) 98 05/26/19 00:00 53 05/25/19 23:34 Nasal Cannula 2.0 28 05/25/19 23:34 Nasal Cannula 2.0 28 05/25/19 21:00 Nasal Cannula 2.0 Nasal Cannula 2.0 05/25/19 20:00 98.4 59 18 123/76 (92) 100 05/25/19 20:00 56 05/25/19 19:36 62 18 98 Nasal Cannula 2.0 28 05/25/19 19:35 60 18 98 Nasal Cannula 2.0 28 05/25/19 16:00 97.7 68 18 110/66 (81) 100 05/25/19 16:00 67 05/25/19 15:25 71 18 98 Nasal Cannula 2.0 28 05/25/19 15:20 68 20 97 Nasal Cannula 2.0 28 05/25/19 12:00 98.2 72 18 126/68 (87) 99 05/25/19 12:00 81 05/25/19 11:14 Nasal Cannula 2.0 28 05/25/19 11:14 Nasal Cannula 2.0 28 05/25/19 09:00 Nasal Cannula 2.0 Nasal Cannula 2.0 05/25/19 08:05 91 05/25/19 08:00 61 05/25/19 08:00 64 05/25/19 08:00 98.1 61 18 119/74 (89) 100 05/25/19 07:55 57 05/25/19 07:23 73 20 99 Nasal Cannula 2.0 28 05/25/19 07:18 69 18 98 Nasal Cannula 2.0 28 05/25/19 04:00 97.5 57 16 110/63 (79) 99 05/25/19 04:00 56 05/25/19 03:24 Nasal Cannula 2.0 28 05/25/19 03:24 Nasal Cannula 2.0 28 05/25/19 00:00 54 05/25/19 00:00 97.9 60 16 118/71 (87) 99 05/24/19 23:45 58 18 99 Nasal Cannula 2.0 28 05/24/19 23:44 58 18 99 Nasal Cannula 2.0 28 05/24/19 21:00 Nasal Cannula 2.0 05/24/19 20:00 72 05/24/19 20:00 96.8 63 17 116/73 (87) 99 05/24/19 19:15 67 18 99 Nasal Cannula 2.0 28 05/24/19 19:14 67 18 99 Nasal Cannula 2.0 28 05/24/19 16:00 98.6 61 18 124/74 (91) 98 05/24/19 16:00 63 05/24/19 12:00 98.2 78 18 113/65 (81) 98 05/24/19 12:00 66 05/24/19 11:03 98.2 05/24/19 09:00 Nasal Cannula 2.0 05/24/19 08:00 98.1 75 19 110/64 (79) 100 05/24/19 08:00 75 Intake and Output 05/25/19 05/26/19 19:00 07:00 Intake Total 900 ml Output Total 2200 ml Balance -1300 ml Intake Oral 900 ml Output Urine Total 2200 ml Labs Test 05/23/19 09:18 05/23/19 11:00 05/23/19 14:00 05/23/19 14:05 Arterial Blood pH 7.439 (7.350-7.450) Arterial Blood Partial Pressure CO2 28.4 mmHg (35.0-45.0) Arterial Blood Partial Pressure O2 121.8 mmHg (75.0-100.0) Arterial Blood HCO3 18.8 mmol/L (22.0-26.0) Arterial Blood Oxygen Saturation 97.7 % (95-100) Arterial Blood Base Excess -4.4 (-2-2) Bola Test Positive Erythrocyte Sedimentation Rate 90 MM/HR (0-15) Reticulocyte Count 2.7 % (0.5-2.0) Prothrombin Time 13.4 SEC (9.30-11.50) Prothromb Time International Ratio 1.3 (0.9-1.1) Activated Partial Thromboplast Time 36 SEC (23-33) Iron Level 5 ug/dL (50-175) Total Iron Binding Capacity 137 ug/dL (250-450) Percent Iron Saturation 4 % (15-50) Unsaturated Iron Binding 132 ug/dL (112-346) Lactate Dehydrogenase 167 U/L (81-234) Carcinoembryonic Antigen 1.0 ng/mL (0.0-4.7) Vitamin B12 Level 296 PG/ML (193-986) Folate 5.3 NG/ML (8.6-58.9) Stool Occult Blood Negative (NEGATIVE) Random Amikacin Level 2.3 MG/L Test 05/23/19 22:00 05/24/19 00:00 05/24/19 06:20 05/24/19 12:45 Troponin I 0.000 ng/mL (0.000-0.056) 0.000 ng/mL (0.000-0.056) 0.000 ng/mL (0.000-0.056) HIV-1 Antibody Positive (Negative) HIV-2 Antibody Negative (Negative) HIV Note Hiv-1 positive (.) White Blood Count 10.0 K/UL (4.8-10.8) Red Blood Count 2.67 M/UL (4.70-6.10) Hemoglobin 8.3 G/DL (14.2-18.0) Hematocrit 24.5 % (42.0-52.0) Mean Corpuscular Volume 92 FL (80-99) Mean Corpuscular Hemoglobin 31.1 PG (27.0-31.0) Mean Corpuscular Hemoglobin Concent 33.8 G/DL (32.0-36.0) Red Cell Distribution Width 15.5 % (11.6-14.8) Platelet Count 54 K/UL (150-450) Mean Platelet Volume 8.3 FL (6.5-10.1) Neutrophils (%) (Auto) % (45.0-75.0) Lymphocytes (%) (Auto) % (20.0-45.0) Monocytes (%) (Auto) % (1.0-10.0) Eosinophils (%) (Auto) % (0.0-3.0) Basophils (%) (Auto) % (0.0-2.0) Differential Total Cells Counted 100 Neutrophils % (Manual) 82 % (45-75) Lymphocytes % (Manual) 14 % (20-45) Monocytes % (Manual) 4 % (1-10) Eosinophils % (Manual) 0 % (0-3) Basophils % (Manual) 0 % (0-2) Band Neutrophils 0 % (0-8) Platelet Estimate Decreased Platelet Morphology Normal Hypochromasia 1+ Anisocytosis 1+ Sodium Level 145 MMOL/L (136-145) Potassium Level 3.2 MMOL/L (3.5-5.1) Chloride Level 116 MMOL/L (98-107) Carbon Dioxide Level 20 MMOL/L (21-32) Anion Gap 9 mmol/L (5-15) Blood Urea Nitrogen 11 mg/dL (7-18) Creatinine 0.8 MG/DL (0.55-1.30) Estimat Glomerular Filtration Rate > 60 mL/min (>60) Glucose Level 94 MG/DL (74-106) Calcium Level 7.7 MG/DL (8.5-10.1) Phosphorus Level 2.0 MG/DL (2.5-4.9) Magnesium Level 2.0 MG/DL (1.8-2.4) Total Bilirubin 0.6 MG/DL (0.2-1.0) Aspartate Amino Transf (AST/SGOT) 17 U/L (15-37) Alanine Aminotransferase (ALT/SGPT) 13 U/L (12-78) Alkaline Phosphatase 54 U/L (46-116) Total Protein 5.4 G/DL (6.4-8.2) Albumin 2.1 G/DL (3.4-5.0) Globulin 3.3 g/dL Albumin/Globulin Ratio 0.6 (1.0-2.7) Thyroid Stimulating Hormone (TSH) 2.182 uiU/mL (0.358-3.740) Hepatitis A IgM Antibody Negative (Negative) Hepatitis B Surface Antigen Negative (Negative) Hepatitis B Core IgM Antibody Negative (Negative) Hepatitis C Antibody <0.1 s/co ratio HIV (1&2) Antibody Rapid Preliminary positive Ferritin 903 NG/ML (8-388) Vancomycin Level Trough 5.5 ug/mL (5.0-12.0) Test 05/24/19 20:30 05/25/19 04:30 White Blood Count 6.5 K/UL (4.8-10.8) Red Blood Count 2.67 M/UL (4.70-6.10) Hemoglobin 8.4 G/DL (14.2-18.0) Hematocrit 24.3 % (42.0-52.0) Mean Corpuscular Volume 91 FL (80-99) Mean Corpuscular Hemoglobin 31.5 PG (27.0-31.0) Mean Corpuscular Hemoglobin Concent 34.6 G/DL (32.0-36.0) Red Cell Distribution Width 15.2 % (11.6-14.8) Platelet Count 68 K/UL (150-450) Mean Platelet Volume 7.7 FL (6.5-10.1) Neutrophils (%) (Auto) % (45.0-75.0) Lymphocytes (%) (Auto) % (20.0-45.0) Monocytes (%) (Auto) % (1.0-10.0) Eosinophils (%) (Auto) % (0.0-3.0) Basophils (%) (Auto) % (0.0-2.0) Differential Total Cells Counted 100 Neutrophils % (Manual) 84 % (45-75) Lymphocytes % (Manual) 12 % (20-45) Monocytes % (Manual) 3 % (1-10) Eosinophils % (Manual) 0 % (0-3) Basophils % (Manual) 1 % (0-2) Band Neutrophils 0 % (0-8) Platelet Estimate Decreased Platelet Morphology Normal Hypochromasia 2+ Anisocytosis 1+ Erythrocyte Sedimentation Rate 105 MM/HR (0-15) Sodium Level 145 MMOL/L (136-145) Potassium Level 2.8 MMOL/L (3.5-5.1) Chloride Level 113 MMOL/L (98-107) Carbon Dioxide Level 22 MMOL/L (21-32) Anion Gap 9 mmol/L (5-15) Blood Urea Nitrogen 6 mg/dL (7-18) Creatinine 0.7 MG/DL (0.55-1.30) Estimat Glomerular Filtration Rate > 60 mL/min (>60) Glucose Level 84 MG/DL (74-106) Calcium Level 7.6 MG/DL (8.5-10.1) Phosphorus Level 2.8 MG/DL (2.5-4.9) Magnesium Level 1.8 MG/DL (1.8-2.4) Total Bilirubin 0.5 MG/DL (0.2-1.0) Aspartate Amino Transf (AST/SGOT) 18 U/L (15-37) Alanine Aminotransferase (ALT/SGPT) 16 U/L (12-78) Alkaline Phosphatase 54 U/L (46-116) C-Reactive Protein, Quantitative 7.1 mg/dL (0.00-0.90) Total Protein 5.5 G/DL (6.4-8.2) Albumin 2.1 G/DL (3.4-5.0) Globulin 3.4 g/dL Albumin/Globulin Ratio 0.6 (1.0-2.7) Height (Feet): 5 Height (Inches): 10.00 Weight (Pounds): 146 Objective Physical Exam: Vitals: reviewed General Appearance: NAD HEENT: normocephalic, atraumatic Neck: non-tender, normal alignment Respiratory/Chest: normal breath sounds bilaterally Cardiovascular/Chest: normal peripheral pulses, normal rate Abdomen: normal bowel sounds, soft, nontender Extremities: normal range of motion Neuro: ++ anxious Romie Cox MD May 26, 2019 05:51
[2019-05-26] MEDS: Meropenem 1 GM in NS 55 ML IVPB SCH ×2 (06:00→13:19)
[2019-05-26 07:02] LABS: HEMATOCRIT 25.7 % (42.0-52.0); HEMOGLOBIN 8.9 G/DL (14.2-18.0); MEAN CORPUSCULAR VOLUME 91 FL (80-99); PLATELET COUNT 79 K/UL (150-450); RED BLOOD COUNT 2.83 M/UL (4.70-6.10); RED CELL DISTRIBUTION WIDTH 14.8 % (11.6-14.8); WHITE BLOOD COUNT 2.8 K/UL (4.8-10.8)
[2019-05-26 07:16] LABS: ANION GAP 9 mmol/L (5-15); BLOOD UREA NITROGEN 3 mg/dL (7-18); CALCIUM 7.7 MG/DL (8.5-10.1); CARBON DIOXIDE 25 MMOL/L (21-32); CHLORIDE 112 MMOL/L (98-107); CREATININE 0.8 MG/DL (0.55-1.30); SODIUM 145 MMOL/L (136-145)
[2019-05-26 08:00] VITALS: BP 122/70
[2019-05-26] MEDS: Theophylline ER 100mg ORAL SCH ×2 (08:46→20:57)
[2019-05-26] MEDS: Heparin 5000 units/ml inj SUBQ SCH ×2 (08:54→20:57)
--- NOTE | 2019-05-26 09:11 | General Progress Note ---
Assessment/Plan Problem List: (1) Pneumonia ICD Codes: J18.9 - Pneumonia, unspecified organism SNOMED: 784823168 (2) Tachycardia ICD Codes: R00.0 - Tachycardia, unspecified SNOMED: 7051211 (3) Sepsis ICD Codes: A41.9 - Sepsis, unspecified organism SNOMED: 90169270 (4) Syncope ICD Codes: R55 - Syncope and collapse SNOMED: 352751288 (5) Schizophrenia ICD Codes: F20.9 - Schizophrenia, unspecified SNOMED: 49703738 Status: unchanged Assessment/Plan: o2 pulm tx abc pt diet eval cbc bmp am dc plan snf Subjective Constitutional: Reports: weakness Allergies: Coded Allergies: No Known Allergies (Unverified , 05/22/19) All Systems: reviewed and negative except above Subjective o2nc calm in bed Objective Last 24 Hour Vital Signs Date Time Temp Pulse Resp B/P (MAP) Pulse Ox O2 Delivery O2 Flow Rate FiO2 05/26/19 08:58 70 20 98 Nasal Cannula 2.0 28 05/26/19 08:56 65 19 97 Nasal Cannula 2.0 28 05/26/19 08:54 Nasal Cannula 2.0 Nasal Cannula 2.0 05/26/19 04:00 60 05/26/19 04:00 97.7 73 18 120/68 (85) 97 05/26/19 03:20 Nasal Cannula 2.0 28 05/26/19 03:20 Nasal Cannula 2.0 28 05/26/19 00:00 97.7 66 18 139/79 (99) 98 05/26/19 00:00 53 05/25/19 23:34 Nasal Cannula 2.0 28 05/25/19 23:34 Nasal Cannula 2.0 28 05/25/19 21:00 Nasal Cannula 2.0 Nasal Cannula 2.0 05/25/19 20:00 98.4 59 18 123/76 (92) 100 05/25/19 20:00 56 05/25/19 19:36 62 18 98 Nasal Cannula 2.0 28 05/25/19 19:35 60 18 98 Nasal Cannula 2.0 28 05/25/19 16:00 97.7 68 18 110/66 (81) 100 05/25/19 16:00 67 05/25/19 15:25 71 18 98 Nasal Cannula 2.0 28 05/25/19 15:20 68 20 97 Nasal Cannula 2.0 28 05/25/19 12:00 98.2 72 18 126/68 (87) 99 05/25/19 12:00 81 05/25/19 11:14 Nasal Cannula 2.0 28 05/25/19 11:14 Nasal Cannula 2.0 28 Intake and Output 05/25/19 05/26/19 19:00 07:00 Intake Total 900 ml Output Total 5200 ml Balance -4300 ml Intake Oral 900 ml Output Urine Total 5200 ml Laboratory Tests 05/26/19 05:00: White Blood Count 2.8#L, Red Blood Count 2.83L, Hemoglobin 8.9L, Hematocrit 25.7L, Mean Corpuscular Volume 91, Mean Corpuscular Hemoglobin 31.6H, Mean Corpuscular Hemoglobin Concent 34.8, Red Cell Distribution Width 14.8, Platelet Count 79L, Mean Platelet Volume 6.2L, Neutrophils (%) (Auto) , Lymphocytes (%) ( Auto) , Monocytes (%) (Auto) , Eosinophils (%) (Auto) , Basophils (%) (Auto) , Differential Total Cells Counted 100, Neutrophils % (Manual) 66, Lymphocytes % ( Manual) 24, Monocytes % (Manual) 7, Eosinophils % (Manual) 3, Basophils % ( Manual) 0, Band Neutrophils 0, Platelet Estimate DecreasedL, Platelet Morphology Normal, Anisocytosis 1+, Sodium Level 145, Potassium Level 3.0L, Chloride Level 112H, Carbon Dioxide Level 25, Anion Gap 9, Blood Urea Nitrogen 3L, Creatinine 0.8, Estimat Glomerular Filtration Rate > 60, Glucose Level 87, Calcium Level 7.7L Height (Feet): 5 Height (Inches): 10.00 Weight (Pounds): 146 General Appearance: lethargic EENT: normal ENT inspection Neck: normal alignment Cardiovascular: normal peripheral pulses, normal rate, regular rhythm Respiratory/Chest: chest wall non-tender, lungs clear, normal breath sounds Abdomen: normal bowel sounds, non tender, soft Extremities: normal inspection Edema: no edema noted Arm (L), no edema noted Arm (R), no edema noted Leg (L), no edema noted Leg (R), no edema noted Pedal (L), no edema noted Pedal (R), no edema noted Generalized Neurologic: motor weakness Skin: normal pigmentation, warm/dry Junior Hicks DO May 26, 2019 09:11
[2019-05-26 12:00] VITALS: BP 127/68
--- NOTE | 2019-05-26 12:06 | Pulmonology Progress Note ---
Assessment/Plan Problems: (1) Bacteremia (2) Sepsis (3) Pneumonia (4) Schizophrenia Assessment/Plan HIDA scan ordered iv fluids iv abx, afebrile now check cultures sputum c/s ID evaluation appreciated tolerating feeding dvt prophylaxis. Subjective ROS Limited/Unobtainable: No Constitutional: Reports: no symptoms HEENT: Repors: no symptoms Allergies: Coded Allergies: No Known Allergies (Unverified , 05/22/19) Objective Last 24 Hour Vital Signs Date Time Temp Pulse Resp B/P (MAP) Pulse Ox O2 Delivery O2 Flow Rate FiO2 05/26/19 08:58 70 20 98 Nasal Cannula 2.0 28 05/26/19 08:56 65 19 97 Nasal Cannula 2.0 28 05/26/19 08:54 Nasal Cannula 2.0 Nasal Cannula 2.0 05/26/19 08:00 69 05/26/19 08:00 97.9 70 19 122/70 (87) 98 05/26/19 04:00 60 05/26/19 04:00 97.7 73 18 120/68 (85) 97 05/26/19 03:20 Nasal Cannula 2.0 28 05/26/19 03:20 Nasal Cannula 2.0 28 05/26/19 00:00 97.7 66 18 139/79 (99) 98 05/26/19 00:00 53 05/25/19 23:34 Nasal Cannula 2.0 28 05/25/19 23:34 Nasal Cannula 2.0 28 05/25/19 21:00 Nasal Cannula 2.0 Nasal Cannula 2.0 05/25/19 20:00 98.4 59 18 123/76 (92) 100 05/25/19 20:00 56 05/25/19 19:36 62 18 98 Nasal Cannula 2.0 28 05/25/19 19:35 60 18 98 Nasal Cannula 2.0 28 05/25/19 16:00 97.7 68 18 110/66 (81) 100 05/25/19 16:00 67 05/25/19 15:25 71 18 98 Nasal Cannula 2.0 28 05/25/19 15:20 68 20 97 Nasal Cannula 2.0 28 Intake and Output 05/25/19 05/26/19 19:00 07:00 Intake Total 900 ml Output Total 5200 ml Balance -4300 ml Intake Oral 900 ml Output Urine Total 5200 ml General Appearance: WD/WN HEENT: normocephalic, atraumatic Respiratory/Chest: chest wall non-tender, lungs clear Cardiovascular: normal peripheral pulses, normal rate Abdomen: normal bowel sounds, soft, non tender Genitourinary: normal external genitalia Neurologic/Psychiatric: director internal control II-XII grossly normal Microbiology Date/Time Source Procedure Growth Status 05/24/19 20:21 Sputum Gram Stain - Final Resulted 05/24/19 20:21 Sputum Culture - Preliminary Yeast Species Resulted 05/23/19 14:00 Stool Clostridium difficile Toxin Assay - Final Complete Laboratory Tests 05/26/19 05:00: White Blood Count 2.8#L, Red Blood Count 2.83L, Hemoglobin 8.9L, Hematocrit 25.7L, Mean Corpuscular Volume 91, Mean Corpuscular Hemoglobin 31.6H, Mean Corpuscular Hemoglobin Concent 34.8, Red Cell Distribution Width 14.8, Platelet Count 79L, Mean Platelet Volume 6.2L, Neutrophils (%) (Auto) , Lymphocytes (%) ( Auto) , Monocytes (%) (Auto) , Eosinophils (%) (Auto) , Basophils (%) (Auto) , Differential Total Cells Counted 100, Neutrophils % (Manual) 66, Lymphocytes % ( Manual) 24, Monocytes % (Manual) 7, Eosinophils % (Manual) 3, Basophils % ( Manual) 0, Band Neutrophils 0, Platelet Estimate DecreasedL, Platelet Morphology Normal, Anisocytosis 1+, Sodium Level 145, Potassium Level 3.0L, Chloride Level 112H, Carbon Dioxide Level 25, Anion Gap 9, Blood Urea Nitrogen 3L, Creatinine 0.8, Estimat Glomerular Filtration Rate > 60, Glucose Level 87, Calcium Level 7.7L Current Medications Medications (Trade) Dose Ordered Sig/Ana Route PRN Reason Start Time Stop Time Status Last Admin Dose Admin Acetaminophen (Tylenol) 650 mg Q4H PRN ORAL fever (T>100.5) 05/23/19 19:15 06/21/19 23:14 05/24/19 10:33 Albuterol/ Ipratropium (Albuterol/ Ipratropium) 3 ml Q4H PRN HHN Shortness of Breath 05/23/19 17:15 05/28/19 17:14 Chlorhexidine Gluconate (Jessie-Hex 2%) 1 applic DAILY@2000 TOPIC 05/24/19 20:00 06/23/19 19:59 05/25/19 21:39 Heparin Sodium (Porcine) (Heparin 5000 units/ml) 5,000 units EVERY 12 HOURS SUBQ 05/23/19 21:00 06/22/19 08:59 Loperamide HCl (Imodium) 2 mg Q4H PRN ORAL Diarrhea 05/23/19 18:15 06/22/19 14:14 Meropenem 1 gm/ Sodium Chloride 55 ml @ 110 mls/hr Q8HR IVPB 05/23/19 22:00 05/28/19 14:59 05/26/19 06:00 Olanzapine (ZyPREXA) 20 mg BEDTIME ORAL 05/25/19 21:00 06/24/19 20:59 05/25/19 21:36 Ondansetron HCl (Zofran) 4 mg Q6H PRN IVP Nausea & Vomiting 05/23/19 17:15 06/21/19 23:14 Pantoprazole (Protonix) 40 mg ACBREAKFAST ORAL 05/26/19 06:30 06/25/19 06:29 05/26/19 06:01 Potassium Chloride (K-Dur) 40 meq ONCE ORAL 05/26/19 11:45 05/26/19 12:45 Promethazine HCl/ Codeine (Phenergan with Codeine) 5 ml Q4H PRN ORAL For Cough 05/23/19 17:15 06/22/19 17:14 Sodium Chloride 1,000 ml @ 100 mls/hr Q10H IVLG 05/23/19 17:15 06/21/19 23:11 05/26/19 06:01 Theophylline (Nicanor-Dur) 100 mg EVERY 12 HOURS ORAL 05/23/19 21:00 06/22/19 20:59 05/26/19 08:46 Trimethoprim/ Sulfamethoxazole 20 ml/Dextrose 570 ml @ 380 mls/hr [id number] BACTRIM IV 05/24/19 16:00 05/31/19 15:59 05/26/19 08:47 Yung Daniels MD May 26, 2019 12:06
[2019-05-26] MEDS ORDERED: Morphine Sulfate 2mg/ml Inj(IV/IM USE ONLY) IVP SCH (13:15)
--- NOTE | 2019-05-26 17:09 | Infectious Diseases Prog Note ---
Assessment/Plan Assessment/Plan Assessment: Septic Shock, SP PNA- r/o PCP Gram positive bacteremia- contaminant Probable UTI -05/24 sp cx yeast (prelim) -05/22 Bcx 04/29 S. warnerii; 05/24Bcx p -u/a wbc 10-15, nit neg, leuk +1; ux GBS COLONY COUNT: 40,000 - 50,000 CFU/ML -Influenza PCR neg -CXR: Redemonstration of increased opacity in the right upper lobe which is slightly better aerated. Right central line terminates in the cavoatrial junction. Fever; SP Leukocytosis, SP -CT head: No acute intracranial pathology. Right scalp operative bashir. Parenchymal volume loss, chronic and of likely no acute abnormality. Right ethmoidal and left sphenoid sinus findings suggesting sinusitis. HIV/AIDS- new diagnosis per patient (last tested was 7 years ago) -CD4 54 (7.7%) -RPR neg JALEEL,SP Tachycardia>bradycardia pancytopenia schizophrenia assisted living facility resident Plan: -Switch empiric Meropenem #/ to Cefepime for pNA -Switch empiric IV bactrim #3 for PCP to PO Atovaquone given worsening pancytopenia -will narrow based on cultures -05/24 SP IV Amikacin #3, IV vancomcyin #3 -05/23 SP Ertapenem x1 -05/22 SP Zosyn x1 -f/u cx -Monitor CBC/CMP, temperatures -aspiration precautions -f/u repeat Bcx x2 -f/u HIV VL, GC/CL, HIV genotype, PCP DFA -Azithrmoycin ppx for MAC -protective services case worker to assist in finding HIV clinic for patient Thank you for consulting [facility]. Will continue to follow along with you. Discussed with RN. Subjective Allergies: Coded Allergies: No Known Allergies (Unverified , 05/22/19) Subjective afebrile >48hrs at 2l NC Objective Vital Signs Last 24 Hour Vital Signs Date Time Temp Pulse Resp B/P (MAP) Pulse Ox O2 Delivery O2 Flow Rate FiO2 05/26/19 12:00 67 05/26/19 12:00 98.0 73 18 127/68 (87) 97 05/26/19 08:58 70 20 98 Nasal Cannula 2.0 28 05/26/19 08:56 65 19 97 Nasal Cannula 2.0 28 05/26/19 08:54 Nasal Cannula 2.0 Nasal Cannula 2.0 05/26/19 08:00 69 05/26/19 08:00 97.9 70 19 122/70 (87) 98 05/26/19 04:00 60 05/26/19 04:00 97.7 73 18 120/68 (85) 97 05/26/19 03:20 Nasal Cannula 2.0 28 05/26/19 03:20 Nasal Cannula 2.0 28 05/26/19 00:00 97.7 66 18 139/79 (99) 98 05/26/19 00:00 53 05/25/19 23:34 Nasal Cannula 2.0 28 05/25/19 23:34 Nasal Cannula 2.0 28 05/25/19 21:00 Nasal Cannula 2.0 Nasal Cannula 2.0 05/25/19 20:00 98.4 59 18 123/76 (92) 100 05/25/19 20:00 56 05/25/19 19:36 62 18 98 Nasal Cannula 2.0 28 05/25/19 19:35 60 18 98 Nasal Cannula 2.0 28 Height (Feet): 5 Height (Inches): 10.00 Weight (Pounds): 146 Objective General Appearance: alert, moderate distress, thin Head: normocephalic, atraumatic Eyes: bilateral eye normal inspection, bilateral eye PERRL ENT: hearing grossly normal, normal pharynx, no angioedema, normal voice Neck: full range of motion, supple, no meningismus, supple/symm/no masses Respiratory: chest non-tender, lungs clear, normal breath sounds, no rhonchi, no wheezing, speaking full sentences Cardiovascular: no murmur, normal capillary refill, tachycardia Gastrointestinal: normal bowel sounds, non tender, soft, non-distended, no guarding, no rebound Genitourinary: normal inspection, no CVA tenderness Musculoskeletal: back normal, digits/nails normal, no calf tenderness Neurologic: alert, oriented Skin: no rash, normal color, diaphoresis Microbiology Date/Time Source Procedure Growth Status 05/24/19 20:21 Sputum Gram Stain - Final Resulted 05/24/19 20:21 Sputum Culture - Preliminary Yeast Species Resulted Laboratory Tests Test 05/26/19 05:00 White Blood Count 2.8 K/UL (4.8-10.8) #L Red Blood Count 2.83 M/UL (4.70-6.10) L Hemoglobin 8.9 G/DL (14.2-18.0) L Hematocrit 25.7 % (42.0-52.0) L Mean Corpuscular Volume 91 FL (80-99) Mean Corpuscular Hemoglobin 31.6 PG (27.0-31.0) H Mean Corpuscular Hemoglobin Concent 34.8 G/DL (32.0-36.0) Red Cell Distribution Width 14.8 % (11.6-14.8) Platelet Count 79 K/UL (150-450) L Mean Platelet Volume 6.2 FL (6.5-10.1) L Neutrophils (%) (Auto) % (45.0-75.0) Lymphocytes (%) (Auto) % (20.0-45.0) Monocytes (%) (Auto) % (1.0-10.0) Eosinophils (%) (Auto) % (0.0-3.0) Basophils (%) (Auto) % (0.0-2.0) Differential Total Cells Counted 100 Neutrophils % (Manual) 66 % (45-75) Lymphocytes % (Manual) 24 % (20-45) Monocytes % (Manual) 7 % (1-10) Eosinophils % (Manual) 3 % (0-3) Basophils % (Manual) 0 % (0-2) Band Neutrophils 0 % (0-8) Platelet Estimate Decreased L Platelet Morphology Normal Anisocytosis 1+ Sodium Level 145 MMOL/L (136-145) Potassium Level 3.0 MMOL/L (3.5-5.1) L Chloride Level 112 MMOL/L (98-107) H Carbon Dioxide Level 25 MMOL/L (21-32) Anion Gap 9 mmol/L (5-15) Blood Urea Nitrogen 3 mg/dL (7-18) L Creatinine 0.8 MG/DL (0.55-1.30) Estimat Glomerular Filtration Rate > 60 mL/min (>60) Glucose Level 87 MG/DL (74-106) Calcium Level 7.7 MG/DL (8.5-10.1) L Current Medications Medications (Trade) Dose Ordered Sig/Ana Route PRN Reason Start Time Stop Time Status Last Admin Dose Admin Acetaminophen (Tylenol) 650 mg Q4H PRN ORAL fever (T>100.5) 05/23/19 19:15 06/21/19 23:14 05/24/19 10:33 Albuterol/ Ipratropium (Albuterol/ Ipratropium) 3 ml Q4H PRN HHN Shortness of Breath 05/23/19 17:15 05/28/19 17:14 Chlorhexidine Gluconate (Jessie-Hex 2%) 1 applic DAILY@2000 TOPIC 05/24/19 20:00 06/23/19 19:59 05/25/19 21:39 Heparin Sodium (Porcine) (Heparin 5000 units/ml) 5,000 units EVERY 12 HOURS SUBQ 05/23/19 21:00 06/22/19 08:59 Loperamide HCl (Imodium) 2 mg Q4H PRN ORAL Diarrhea 05/23/19 18:15 06/22/19 14:14 Meropenem 1 gm/ Sodium Chloride 55 ml @ 110 mls/hr Q8HR IVPB 05/23/19 22:00 05/28/19 14:59 05/26/19 13:19 Morphine Sulfate (Morphine Sulfate) 2 mg ONCE IVP 05/26/19 13:15 05/26/19 18:00 05/26/19 15:49 Olanzapine (ZyPREXA) 20 mg BEDTIME ORAL 05/25/19 21:00 06/24/19 20:59 05/25/19 21:36 Ondansetron HCl (Zofran) 4 mg Q6H PRN IVP Nausea & Vomiting 05/23/19 17:15 06/21/19 23:14 Pantoprazole (Protonix) 40 mg ACBREAKFAST ORAL 05/26/19 06:30 06/25/19 06:29 05/26/19 06:01 Promethazine HCl/ Codeine (Phenergan with Codeine) 5 ml Q4H PRN ORAL For Cough 05/23/19 17:15 06/22/19 17:14 Sodium Chloride 1,000 ml @ 100 mls/hr Q10H IVLG 05/23/19 17:15 06/21/19 23:11 05/26/19 06:01 Theophylline (Nicanor-Dur) 100 mg EVERY 12 HOURS ORAL 05/23/19 21:00 06/22/19 20:59 05/26/19 08:46 Trimethoprim/ Sulfamethoxazole 20 ml/Dextrose 570 ml @ 380 mls/hr X6MG-BI BACTRIM IV 05/24/19 16:00 05/31/19 15:59 05/26/19 16:41 Evelia Suarez M.D. May 26, 2019 17:09
[2019-05-26] MEDS ORDERED: Azithromycin 600mg Tab ORAL SCH (18:00)
--- NOTE | 2019-05-26 18:15 | Cardiology Progress Note ---
Assessment/Plan Assessment/Plan 1. Syncope. 2. Sinus tachycardia. 3. Diarrhea. 4. Anemia. 5. Thrombocytopenia. 6. Iron deficiency. 7. Schizophrenia. 8. Staph bacteremia felt to be contaminent per ID all cell count are low trop neg bp seem ok no orthostatic dropn in bp yest but heart increased by 30 heme noted blood cx neg so far cdiff neg on iv abx ivf to be continued tele neg personally reviewed dc tele Subjective Cardiovascular: Denies: chest pain, lightheadedness Respiratory: Denies: orthopnea, shortness of breath Gastrointestinal/Abdominal: Denies: abdominal pain Genitourinary: Denies: burning Objective Last 24 Hour Vital Signs Date Time Temp Pulse Resp B/P (MAP) Pulse Ox O2 Delivery O2 Flow Rate FiO2 05/26/19 12:00 67 05/26/19 12:00 98.0 73 18 127/68 (87) 97 05/26/19 08:58 70 20 98 Nasal Cannula 2.0 28 05/26/19 08:56 65 19 97 Nasal Cannula 2.0 28 05/26/19 08:54 Nasal Cannula 2.0 Nasal Cannula 2.0 05/26/19 08:00 69 05/26/19 08:00 97.9 70 19 122/70 (87) 98 05/26/19 04:00 60 05/26/19 04:00 97.7 73 18 120/68 (85) 97 05/26/19 03:20 Nasal Cannula 2.0 28 05/26/19 03:20 Nasal Cannula 2.0 28 05/26/19 00:00 97.7 66 18 139/79 (99) 98 05/26/19 00:00 53 05/25/19 23:34 Nasal Cannula 2.0 28 05/25/19 23:34 Nasal Cannula 2.0 28 05/25/19 21:00 Nasal Cannula 2.0 Nasal Cannula 2.0 05/25/19 20:00 98.4 59 18 123/76 (92) 100 05/25/19 20:00 56 05/25/19 19:36 62 18 98 Nasal Cannula 2.0 28 05/25/19 19:35 60 18 98 Nasal Cannula 2.0 28 General Appearance: no apparent distress, alert Neck: supple Cardiovascular: normal rate Respiratory/Chest: lungs clear Abdomen: normal bowel sounds, non tender, soft Extremities: no swelling Intake and Output 1/30/20 1/31/20 19:00 07:00 Intake Total 900 ml Output Total 5200 ml Balance -4300 ml Intake Oral 900 ml Output Urine Total 5200 ml Laboratory Tests Test 05/26/19 05:00 White Blood Count 2.8 K/UL (4.8-10.8) #L Red Blood Count 2.83 M/UL (4.70-6.10) L Hemoglobin 8.9 G/DL (14.2-18.0) L Hematocrit 25.7 % (42.0-52.0) L Mean Corpuscular Volume 91 FL (80-99) Mean Corpuscular Hemoglobin 31.6 PG (27.0-31.0) H Mean Corpuscular Hemoglobin Concent 34.8 G/DL (32.0-36.0) Red Cell Distribution Width 14.8 % (11.6-14.8) Platelet Count 79 K/UL (150-450) L Mean Platelet Volume 6.2 FL (6.5-10.1) L Neutrophils (%) (Auto) % (45.0-75.0) Lymphocytes (%) (Auto) % (20.0-45.0) Monocytes (%) (Auto) % (1.0-10.0) Eosinophils (%) (Auto) % (0.0-3.0) Basophils (%) (Auto) % (0.0-2.0) Differential Total Cells Counted 100 Neutrophils % (Manual) 66 % (45-75) Lymphocytes % (Manual) 24 % (20-45) Monocytes % (Manual) 7 % (1-10) Eosinophils % (Manual) 3 % (0-3) Basophils % (Manual) 0 % (0-2) Band Neutrophils 0 % (0-8) Platelet Estimate Decreased L Platelet Morphology Normal Anisocytosis 1+ Sodium Level 145 MMOL/L (136-145) Potassium Level 3.0 MMOL/L (3.5-5.1) L Chloride Level 112 MMOL/L (98-107) H Carbon Dioxide Level 25 MMOL/L (21-32) Anion Gap 9 mmol/L (5-15) Blood Urea Nitrogen 3 mg/dL (7-18) L Creatinine 0.8 MG/DL (0.55-1.30) Estimat Glomerular Filtration Rate > 60 mL/min (>60) Glucose Level 87 MG/DL (74-106) Calcium Level 7.7 MG/DL (8.5-10.1) L Microbiology Date/Time Source Procedure Growth Status 05/24/19 20:21 Sputum Gram Stain - Final Resulted 05/24/19 20:21 Sputum Culture - Preliminary Yeast Species Resulted Devan Ann MD May 26, 2019 18:15
--- NOTE | 2019-05-26 18:45 | Progress Note ---
DATE: 05/26/2019 SUBJECTIVE: The patient is able to answer the questions. He has anxiety. Sleep and appetite is adequate. No behavior issues noted. Compliant with medication. MENTAL STATUS EXAMINATION: The patient is alert and oriented times self, place, and situation. Mood is neutral. Affect is constricted. Congruent with mood. Thought process is concrete. Thought content, no suicidal or homicidal ideation. Cognition is intact. Insight and judgment is intact. ASSESSMENT: 1. Schizophrenia. 2. Anxiety disorder. PLAN: 1. Continue olanzapine 20 mg at bedtime. 2. Continue antianxiety medication. 3. Provide the patient with reality orientation and supportive therapy. Corona King M.D. DR: JARRED JOB#: [id number] CC:
[2019-05-26] MEDS: Atovaquone 750mg/5ml Susp ORAL SCH (18:58)
[2019-05-26 20:00] VITALS: BP 112/64
[2019-05-26] MEDS: Dyna-Hex 2% Top Sol 2oz TOPIC SCH (20:49)
[2019-05-26] MEDS: Cefepime HCl 1 GM in D5W 55 ML IVPB SCH (20:49)
[2019-05-26] MEDS: OLANZapine 10mg tab ORAL SCH (20:57)
[2019-05-27] VITALS: BP 110/67
[2019-05-27 04:00] VITALS: BP 115/73
[2019-05-27 07:17] LABS: BASOPHILS % (AUTO) 1.5 % (0.0-2.0); EOSINOPHILS % (AUTO) 6.4 % (0.0-3.0); HEMOGLOBIN 9.9 G/DL (14.2-18.0); LYMPHOCYTES % (AUTO) 22.7 % (20.0-45.0); MEAN CORPUSCULAR VOLUME 88 FL (80-99); MONOCYTES % (AUTO) 12.7 % (1.0-10.0); NEUTROPHILS % (AUTO) 56.7 % (45.0-75.0); PLATELET COUNT 103 K/UL (150-450); RED BLOOD COUNT 3.16 M/UL (4.70-6.10); RED CELL DISTRIBUTION WIDTH 14.6 % (11.6-14.8); WHITE BLOOD COUNT 4.5 K/UL (4.8-10.8)
[2019-05-27 07:22] LABS: ANION GAP 8 mmol/L (5-15); BLOOD UREA NITROGEN 7 mg/dL (7-18); CARBON DIOXIDE 26 MMOL/L (21-32); CHLORIDE 106 MMOL/L (98-107); POTASSIUM 3.9 MMOL/L (3.5-5.1); SODIUM 140 MMOL/L (136-145)
[2019-05-27 08:00] VITALS: BP 125/74
[2019-05-27] MEDS: Heparin 5000 units/ml inj SUBQ SCH ×2 (08:55→21:17)
--- NOTE | 2019-05-27 09:12 | General Progress Note ---
Assessment/Plan Problem List: (1) Pneumonia ICD Codes: J18.9 - Pneumonia, unspecified organism SNOMED: 165420340 (2) Tachycardia ICD Codes: R00.0 - Tachycardia, unspecified SNOMED: 3702628 (3) Sepsis ICD Codes: A41.9 - Sepsis, unspecified organism SNOMED: 26208678 (4) Syncope ICD Codes: R55 - Syncope and collapse SNOMED: 893760363 (5) Schizophrenia ICD Codes: F20.9 - Schizophrenia, unspecified SNOMED: 24210954 Status: unchanged Assessment/Plan: o2 pulm tx abc pt diet eval cbc bmp am dc plan snf Subjective Constitutional: Reports: weakness Allergies: Coded Allergies: No Known Allergies (Unverified , 05/22/19) All Systems: reviewed and negative except above Subjective o2nc calm in bed Objective Last 24 Hour Vital Signs Date Time Temp Pulse Resp B/P (MAP) Pulse Ox O2 Delivery O2 Flow Rate FiO2 05/27/19 07:50 78 18 98 Nasal Cannula 2.0 28 05/27/19 07:50 62 18 96 Nasal Cannula 2.0 28 05/27/19 04:00 97.4 71 18 115/73 (87) 96 05/27/19 04:00 69 05/27/19 03:31 Nasal Cannula 2.0 28 05/27/19 03:31 Nasal Cannula 2.0 28 05/27/19 00:00 60 05/27/19 00:00 99.2 64 18 110/67 (81) 99 05/26/19 23:05 79 20 97 Nasal Cannula 2.0 28 05/26/19 23:05 75 18 97 Nasal Cannula 2.0 28 05/26/19 21:00 Nasal Cannula 2.0 Nasal Cannula 2.0 05/26/19 20:00 100.0 74 18 112/64 (80) 99 05/26/19 20:00 68 05/26/19 19:05 74 20 98 Nasal Cannula 2.0 28 05/26/19 19:05 72 17 96 Nasal Cannula 2.0 28 05/26/19 16:55 77 19 97 Nasal Cannula 2.0 28 05/26/19 16:55 72 19 98 Nasal Cannula 2.0 28 05/26/19 12:07 77 20 97 Nasal Cannula 2.0 28 05/26/19 12:04 75 18 98 Nasal Cannula 2.0 28 05/26/19 12:00 67 05/26/19 12:00 98.0 73 18 127/68 (87) 97 Intake and Output 05/26/19 05/27/19 19:00 07:00 Intake Total 880 ml Output Total 1300 ml 2100 ml Balance -420 ml -2100 ml Intake Oral 880 ml Output Urine Total 1300 ml 2100 ml # Bowel Movements 1 Laboratory Tests 05/27/19 06:20: White Blood Count 4.5#L, Red Blood Count 3.16L, Hemoglobin 9.9L, Hematocrit 28.0L, Mean Corpuscular Volume 88, Mean Corpuscular Hemoglobin 31.5H, Mean Corpuscular Hemoglobin Concent 35.6, Red Cell Distribution Width 14.6, Platelet Count 103L, Mean Platelet Volume 6.5, Neutrophils (%) (Auto) 56.7, Lymphocytes ( %) (Auto) 22.7, Monocytes (%) (Auto) 12.7H, Eosinophils (%) (Auto) 6.4H, Basophils (%) (Auto) 1.5, Sodium Level 140, Potassium Level 3.9, Chloride Level 106, Carbon Dioxide Level 26, Anion Gap 8, Blood Urea Nitrogen 7, Creatinine 1.0 , Estimat Glomerular Filtration Rate > 60, Glucose Level 95, Calcium Level 8.0L Height (Feet): 5 Height (Inches): 10.00 Weight (Pounds): 146 General Appearance: lethargic EENT: normal ENT inspection Neck: normal alignment Cardiovascular: normal peripheral pulses, normal rate, regular rhythm Respiratory/Chest: chest wall non-tender, lungs clear, normal breath sounds Abdomen: normal bowel sounds, non tender, soft Extremities: normal inspection Edema: no edema noted Arm (L), no edema noted Arm (R), no edema noted Leg (L), no edema noted Leg (R), no edema noted Pedal (L), no edema noted Pedal (R), no edema noted Generalized Neurologic: motor weakness Skin: normal pigmentation, warm/dry Junior Hicks DO May 27, 2019 09:12
[2019-05-27] MEDS: Atovaquone 750mg/5ml Susp ORAL SCH ×2 (09:38→17:59)
[2019-05-27] MEDS: Theophylline ER 100mg ORAL SCH ×2 (09:38→21:13)
[2019-05-27] MEDS: Cefepime HCl 1 GM in D5W 55 ML IVPB SCH ×2 (09:39→21:13)
--- NOTE | 2019-05-27 11:28 | Infectious Diseases Prog Note ---
Assessment/Plan Assessment/Plan Assessment: Septic Shock, SP PNA- r/o PCP Gram positive bacteremia- contaminant Probable UTI -05/24 sp cx C. albicans -05/22 Bcx 04/29 S. warnerii; 05/24Bcx NTD -u/a wbc 10-15, nit neg, leuk +1; ux GBS COLONY COUNT: 40,000 - 50,000 CFU/ML -Influenza PCR neg -CXR: Redemonstration of increased opacity in the right upper lobe which is slightly better aerated. Right central line terminates in the cavoatrial junction. Fever; SP Leukocytosis, SP -CT head: No acute intracranial pathology. Right scalp operative bashir. Parenchymal volume loss, chronic and of likely no acute abnormality. Right ethmoidal and left sphenoid sinus findings suggesting sinusitis. HIV/AIDS- new diagnosis per patient (last tested was 7 years ago) -CD4 54 (7.7%) -RPR, GC/CL neg JALEEL,SP Tachycardia>bradycardia pancytopenia, improved schizophrenia assisted living facility resident Plan: -Continue Cefepime #2 (abx day #5/7) for pNA -Continue PO Atovaquone #2 (abx d #4) given worsening pancytopenia -will narrow based on cultures -05/26 SP Meropenem #4, Bactrim #3 -05/24 SP IV Amikacin #3, IV vancomcyin #3 -05/23 SP Ertapenem x1 -05/22 SP Zosyn x1 -f/u cx -Monitor CBC/CMP, temperatures -aspiration precautions -f/u repeat Bcx x2 -f/u HIV VL, HIV genotype, PCP DFA -Azithrmoycin ppx for MAC -caseworker to assist in finding HIV clinic for patient Thank you for consulting [facility]. Will continue to follow along with you. Discussed with RN. Subjective Allergies: Coded Allergies: No Known Allergies (Unverified , 05/22/19) Subjective Tm 100 pancytopenia improved at 2l NC Objective Vital Signs Last 24 Hour Vital Signs Date Time Temp Pulse Resp B/P (MAP) Pulse Ox O2 Delivery O2 Flow Rate FiO2 05/27/19 11:10 70 18 98 Nasal Cannula 2.0 28 05/27/19 11:10 66 16 97 Nasal Cannula 2.0 28 05/27/19 08:00 Nasal Cannula 2.0 Nasal Cannula 2.0 05/27/19 08:00 97.7 78 18 125/74 (91) 100 05/27/19 07:50 78 18 98 Nasal Cannula 2.0 28 05/27/19 07:50 62 18 96 Nasal Cannula 2.0 28 05/27/19 07:42 61 05/27/19 04:00 97.4 71 18 115/73 (87) 96 05/27/19 04:00 69 05/27/19 03:31 Nasal Cannula 2.0 28 05/27/19 03:31 Nasal Cannula 2.0 28 05/27/19 00:00 60 05/27/19 00:00 99.2 64 18 110/67 (81) 99 05/26/19 23:05 79 20 97 Nasal Cannula 2.0 28 05/26/19 23:05 75 18 97 Nasal Cannula 2.0 28 05/26/19 21:00 Nasal Cannula 2.0 Nasal Cannula 2.0 05/26/19 20:00 100.0 74 18 112/64 (80) 99 05/26/19 20:00 68 05/26/19 19:05 74 20 98 Nasal Cannula 2.0 28 05/26/19 19:05 72 17 96 Nasal Cannula 2.0 28 05/26/19 16:55 77 19 97 Nasal Cannula 2.0 28 05/26/19 16:55 72 19 98 Nasal Cannula 2.0 28 05/26/19 12:07 77 20 97 Nasal Cannula 2.0 28 05/26/19 12:04 75 18 98 Nasal Cannula 2.0 28 05/26/19 12:00 67 05/26/19 12:00 98.0 73 18 127/68 (87) 97 Height (Feet): 5 Height (Inches): 10.00 Weight (Pounds): 146 Objective General Appearance: alert, moderate distress, thin Head: normocephalic, atraumatic Eyes: bilateral eye normal inspection, bilateral eye PERRL ENT: hearing grossly normal, normal pharynx, no angioedema, normal voice Neck: full range of motion, supple, no meningismus, supple/symm/no masses Respiratory: chest non-tender, lungs clear, normal breath sounds, no rhonchi, no wheezing, speaking full sentences Cardiovascular: no murmur, normal capillary refill, tachycardia Gastrointestinal: normal bowel sounds, non tender, soft, non-distended, no guarding, no rebound Genitourinary: normal inspection, no CVA tenderness Musculoskeletal: back normal, digits/nails normal, no calf tenderness Neurologic: alert, oriented Skin: no rash, normal color, diaphoresis Microbiology Date/Time Source Procedure Growth Status 05/24/19 20:21 Sputum Gram Stain - Final Complete 05/24/19 20:21 Sputum Culture - Final Dione Albicans Complete Laboratory Tests Test 05/27/19 06:20 White Blood Count 4.5 K/UL (4.8-10.8) #L Red Blood Count 3.16 M/UL (4.70-6.10) L Hemoglobin 9.9 G/DL (14.2-18.0) L Hematocrit 28.0 % (42.0-52.0) L Mean Corpuscular Volume 88 FL (80-99) Mean Corpuscular Hemoglobin 31.5 PG (27.0-31.0) H Mean Corpuscular Hemoglobin Concent 35.6 G/DL (32.0-36.0) Red Cell Distribution Width 14.6 % (11.6-14.8) Platelet Count 103 K/UL (150-450) L Mean Platelet Volume 6.5 FL (6.5-10.1) Neutrophils (%) (Auto) 56.7 % (45.0-75.0) Lymphocytes (%) (Auto) 22.7 % (20.0-45.0) Monocytes (%) (Auto) 12.7 % (1.0-10.0) H Eosinophils (%) (Auto) 6.4 % (0.0-3.0) H Basophils (%) (Auto) 1.5 % (0.0-2.0) Sodium Level 140 MMOL/L (136-145) Potassium Level 3.9 MMOL/L (3.5-5.1) Chloride Level 106 MMOL/L (98-107) Carbon Dioxide Level 26 MMOL/L (21-32) Anion Gap 8 mmol/L (5-15) Blood Urea Nitrogen 7 mg/dL (7-18) Creatinine 1.0 MG/DL (0.55-1.30) Estimat Glomerular Filtration Rate > 60 mL/min (>60) Glucose Level 95 MG/DL (74-106) Calcium Level 8.0 MG/DL (8.5-10.1) L Current Medications Medications (Trade) Dose Ordered Sig/Ana Route PRN Reason Start Time Stop Time Status Last Admin Dose Admin Acetaminophen (Tylenol) 650 mg Q4H PRN ORAL fever (T>100.5) 05/23/19 19:15 06/21/19 23:14 05/24/19 10:33 Albuterol/ Ipratropium (Albuterol/ Ipratropium) 3 ml Q4H PRN HHN Shortness of Breath 05/23/19 17:15 05/28/19 17:14 Atovaquone (Mepron Susp) 750 mg TWICE A DAY ORAL 05/26/19 18:00 06/25/19 17:59 05/27/19 09:38 Azithromycin (Zithromax) 1,200 mg ONCE A WEEK ORAL 05/26/19 18:00 06/02/19 17:59 05/26/19 18:58 Cefepime HCl 1 gm/ Dextrose 55 ml @ 110 mls/hr EVERY 12 HOURS IVPB 05/26/19 21:00 06/02/19 20:59 05/27/19 09:39 Chlorhexidine Gluconate (Jessie-Hex 2%) 1 applic DAILY@2000 TOPIC 05/24/19 20:00 06/23/19 19:59 05/26/19 20:49 Heparin Sodium (Porcine) (Heparin 5000 units/ml) 5,000 units EVERY 12 HOURS SUBQ 05/23/19 21:00 06/22/19 08:59 Loperamide HCl (Imodium) 2 mg Q4H PRN ORAL Diarrhea 05/23/19 18:15 06/22/19 14:14 Olanzapine (ZyPREXA) 20 mg BEDTIME ORAL 05/25/19 21:00 06/24/19 20:59 05/25/19 21:36 Ondansetron HCl (Zofran) 4 mg Q6H PRN IVP Nausea & Vomiting 05/23/19 17:15 06/21/19 23:14 05/26/19 20:49 Pantoprazole (Protonix) 40 mg ACBREAKFAST ORAL 05/26/19 06:30 06/25/19 06:29 05/27/19 06:31 Promethazine HCl/ Codeine (Phenergan with Codeine) 5 ml Q4H PRN ORAL For Cough 05/23/19 17:15 06/22/19 17:14 Sodium Chloride 1,000 ml @ 100 mls/hr Q10H IVLG 05/23/19 17:15 06/21/19 23:11 05/27/19 06:31 Theophylline (Nicanor-Dur) 100 mg EVERY 12 HOURS ORAL 05/23/19 21:00 06/22/19 20:59 05/27/19 09:38 Evelia Suarez M.D. May 27, 2019 11:28
[2019-05-27 12:00] VITALS: BP 127/69
[2019-05-27 16:00] VITALS: BP 113/66
[2019-05-27 20:00] VITALS: BP 114/65
[2019-05-27] MEDS: Dyna-Hex 2% Top Sol 2oz TOPIC SCH (21:10)
[2019-05-27] MEDS: OLANZapine 10mg tab ORAL SCH (21:13)
--- NOTE | 2019-05-27 22:04 | Cardiology Progress Note ---
Assessment/Plan Assessment/Plan stable vitals, sinus rhythm on telemetry, no evidence of cardiac symptoms Subjective Subjective the patient is resting in bed, he is weak, has some dizziness Objective Last 24 Hour Vital Signs Date Time Temp Pulse Resp B/P (MAP) Pulse Ox O2 Delivery O2 Flow Rate FiO2 05/27/19 19:36 77 18 97 Nasal Cannula 2.0 28 05/27/19 19:35 76 16 97 Nasal Cannula 2.0 28 05/27/19 16:15 74 05/27/19 16:00 97.7 76 18 113/66 (82) 99 05/27/19 16:00 Nasal Cannula 2.0 Nasal Cannula 2.0 05/27/19 15:50 69 16 96 Nasal Cannula 2.0 28 05/27/19 15:50 74 18 97 Nasal Cannula 2.0 28 05/27/19 12:00 98.1 66 20 127/69 (88) 99 05/27/19 12:00 Nasal Cannula 2.0 Nasal Cannula 2.0 05/27/19 11:46 63 05/27/19 11:10 70 18 98 Nasal Cannula 2.0 28 05/27/19 11:10 66 16 97 Nasal Cannula 2.0 28 05/27/19 08:00 Nasal Cannula 2.0 Nasal Cannula 2.0 05/27/19 08:00 97.7 78 18 125/74 (91) 100 05/27/19 07:50 78 18 98 Nasal Cannula 2.0 28 05/27/19 07:50 62 18 96 Nasal Cannula 2.0 28 05/27/19 07:42 61 05/27/19 04:00 97.4 71 18 115/73 (87) 96 05/27/19 04:00 69 05/27/19 03:31 Nasal Cannula 2.0 28 05/27/19 03:31 Nasal Cannula 2.0 28 05/27/19 00:00 60 05/27/19 00:00 99.2 64 18 110/67 (81) 99 05/26/19 23:05 79 20 97 Nasal Cannula 2.0 28 05/26/19 23:05 75 18 97 Nasal Cannula 2.0 28 General Appearance: alert EENT: PERRL/EOMI Neck: supple Rhythm: NSR Cardiovascular: normal rate Respiratory/Chest: lungs clear Abdomen: non tender Intake and Output 05/26/19 05/27/19 19:00 07:00 Intake Total 880 ml Output Total 1300 ml 2100 ml Balance -420 ml -2100 ml Intake Oral 880 ml Output Urine Total 1300 ml 2100 ml # Bowel Movements 1 Laboratory Tests Test 05/27/19 06:20 White Blood Count 4.5 K/UL (4.8-10.8) #L Red Blood Count 3.16 M/UL (4.70-6.10) L Hemoglobin 9.9 G/DL (14.2-18.0) L Hematocrit 28.0 % (42.0-52.0) L Mean Corpuscular Volume 88 FL (80-99) Mean Corpuscular Hemoglobin 31.5 PG (27.0-31.0) H Mean Corpuscular Hemoglobin Concent 35.6 G/DL (32.0-36.0) Red Cell Distribution Width 14.6 % (11.6-14.8) Platelet Count 103 K/UL (150-450) L Mean Platelet Volume 6.5 FL (6.5-10.1) Neutrophils (%) (Auto) 56.7 % (45.0-75.0) Lymphocytes (%) (Auto) 22.7 % (20.0-45.0) Monocytes (%) (Auto) 12.7 % (1.0-10.0) H Eosinophils (%) (Auto) 6.4 % (0.0-3.0) H Basophils (%) (Auto) 1.5 % (0.0-2.0) Sodium Level 140 MMOL/L (136-145) Potassium Level 3.9 MMOL/L (3.5-5.1) Chloride Level 106 MMOL/L (98-107) Carbon Dioxide Level 26 MMOL/L (21-32) Anion Gap 8 mmol/L (5-15) Blood Urea Nitrogen 7 mg/dL (7-18) Creatinine 1.0 MG/DL (0.55-1.30) Estimat Glomerular Filtration Rate > 60 mL/min (>60) Glucose Level 95 MG/DL (74-106) Calcium Level 8.0 MG/DL (8.5-10.1) Clair Falcon MD May 27, 2019 22:04
[2019-05-28] VITALS (7 sets, daily range): BP systolic 105–124; BP diastolic 63–72
[2019-05-28 06:00] LABS: HEMATOCRIT 28.3 % (42.0-52.0); HEMOGLOBIN 9.8 G/DL (14.2-18.0); MEAN CORPUSCULAR VOLUME 90 FL (80-99); PLATELET COUNT 90 K/UL (150-450); RED BLOOD COUNT 3.15 M/UL (4.70-6.10); RED CELL DISTRIBUTION WIDTH 15.1 % (11.6-14.8); WHITE BLOOD COUNT 3.5 K/UL (4.8-10.8)
[2019-05-28 06:01] LABS: ANION GAP 6 mmol/L (5-15); BLOOD UREA NITROGEN 10 mg/dL (7-18); CARBON DIOXIDE 26 MMOL/L (21-32); CHLORIDE 111 MMOL/L (98-107); CREATININE 0.9 MG/DL (0.55-1.30); POTASSIUM 3.6 MMOL/L (3.5-5.1); SODIUM 142 MMOL/L (136-145)
--- NOTE | 2019-05-28 08:18 | General Progress Note ---
Assessment/Plan Problem List: (1) Pneumonia ICD Codes: J18.9 - Pneumonia, unspecified organism SNOMED: 544000765 (2) Tachycardia ICD Codes: R00.0 - Tachycardia, unspecified SNOMED: 5372037 (3) Sepsis ICD Codes: A41.9 - Sepsis, unspecified organism SNOMED: 22485257 (4) Syncope ICD Codes: R55 - Syncope and collapse SNOMED: 586901913 (5) Schizophrenia ICD Codes: F20.9 - Schizophrenia, unspecified SNOMED: 66716307 Status: unchanged Assessment/Plan: o2 pulm tx abc pt diet eval heme eval cbc bmp am dc plan snf Subjective Constitutional: Reports: weakness Allergies: Coded Allergies: No Known Allergies (Unverified , 05/22/19) All Systems: reviewed and negative except above Subjective o2nc calm in bed Objective Last 24 Hour Vital Signs Date Time Temp Pulse Resp B/P (MAP) Pulse Ox O2 Delivery O2 Flow Rate FiO2 05/28/19 07:03 Nasal Cannula 2.0 28 05/28/19 07:03 Nasal Cannula 2.0 28 05/28/19 04:00 66 05/28/19 04:00 97.4 72 18 110/71 (84) 98 05/28/19 02:25 Nasal Cannula 2.0 28 05/28/19 02:25 Nasal Cannula 2.0 28 05/28/19 00:00 80 05/28/19 00:00 97.3 70 18 108/66 (80) 99 05/27/19 22:54 75 18 97 Nasal Cannula 2.0 28 05/27/19 22:51 73 16 96 Nasal Cannula 2.0 28 05/27/19 20:00 98.1 72 18 114/65 (81) 100 05/27/19 20:00 65 05/27/19 20:00 Nasal Cannula 2.0 Nasal Cannula 2.0 05/27/19 19:36 77 18 97 Nasal Cannula 2.0 28 05/27/19 19:35 76 16 97 Nasal Cannula 2.0 28 05/27/19 16:15 74 05/27/19 16:00 97.7 76 18 113/66 (82) 99 05/27/19 16:00 Nasal Cannula 2.0 Nasal Cannula 2.0 05/27/19 15:50 69 16 96 Nasal Cannula 2.0 28 05/27/19 15:50 74 18 97 Nasal Cannula 2.0 28 05/27/19 12:00 98.1 66 20 127/69 (88) 99 05/27/19 12:00 Nasal Cannula 2.0 Nasal Cannula 2.0 05/27/19 11:46 63 05/27/19 11:10 70 18 98 Nasal Cannula 2.0 28 05/27/19 11:10 66 16 97 Nasal Cannula 2.0 28 Intake and Output 05/27/19 05/28/19 19:00 07:00 Intake Total 810 ml Output Total 3300 ml 700 ml Balance -2490 ml -700 ml Intake Oral 500 ml IV Total 310 ml Output Urine Total 3300 ml 700 ml # Voids 1 # Bowel Movements 3 1 Laboratory Tests 05/28/19 05:30: White Blood Count 3.5L, Red Blood Count 3.15L, Hemoglobin 9.8L, Hematocrit 28.3L , Mean Corpuscular Volume 90, Mean Corpuscular Hemoglobin 31.1H, Mean Corpuscular Hemoglobin Concent 34.5, Red Cell Distribution Width 15.1H, Platelet Count 90L, Mean Platelet Volume 6.7, Neutrophils (%) (Auto) , Lymphocytes (%) (Auto) , Monocytes (%) (Auto) , Eosinophils (%) (Auto) , Basophils (%) (Auto) , Neutrophils % (Manual) [Pending], Lymphocytes % (Manual) [Pending], Platelet Estimate [Pending], Platelet Morphology [Pending], Sodium Level 142, Potassium Level 3.6, Chloride Level 111H, Carbon Dioxide Level 26, Anion Gap 6, Blood Urea Nitrogen 10, Creatinine 0.9, Estimat Glomerular Filtration Rate > 60, Glucose Level 106, Calcium Level 8.0L Height (Feet): 5 Height (Inches): 10.00 Weight (Pounds): 147 General Appearance: lethargic EENT: normal ENT inspection Neck: normal alignment Cardiovascular: normal peripheral pulses, normal rate, regular rhythm Respiratory/Chest: chest wall non-tender, lungs clear, normal breath sounds Abdomen: normal bowel sounds, non tender, soft Extremities: normal inspection Edema: no edema noted Arm (L), no edema noted Arm (R), no edema noted Leg (L), no edema noted Leg (R), no edema noted Pedal (L), no edema noted Pedal (R), no edema noted Generalized Neurologic: motor weakness Skin: normal pigmentation, warm/dry Junior Hicks DO May 28, 2019 08:18
[2019-05-28] MEDS: Heparin 5000 units/ml inj SUBQ SCH ×2 (08:27→20:53)
[2019-05-28] MEDS: Cefepime HCl 1 GM in D5W 55 ML IVPB SCH ×2 (08:27→21:41)
[2019-05-28] MEDS: Theophylline ER 100mg ORAL SCH ×2 (08:27→20:53)
[2019-05-28] MEDS: Atovaquone 750mg/5ml Susp ORAL SCH ×2 (08:27→17:22)
[2019-05-28] MEDS ORDERED: Tubing IV Secondary IV ONE (10:05)
[2019-05-28] MEDS ORDERED: Promethazine/Codeine 5ml UD ORAL PRN (14:30)
[2019-05-28] MEDS ORDERED: Albuterol/Ipratropium 3ml neb HHN PRN (14:30)
--- NOTE | 2019-05-28 19:58 | Hematology/Onc Progress Note ---
Assessment/Plan Assessment/Plan Assessment and Recs: # Thrombocytopenia - potential causes multifactorial, evaluate liver and viral etiologies to begin, in this case HIV++ being w/u by id, also with pna being treated --> Hep panel and HIV ++ and rx for id --> US abd to evaluate for cirrhosis and hsm ordered - positive for splenomegaly --> Peripheral smear ordered to evaluate for blasts /schistocytes --> is wnl --> abx and other meds have been reviewed --> ok for ppx if plt >50k w/ either heparin or lovenox --> Transfuse if Plt < 20k and fever, or if Plt < 10k without fever --> plt trend 90-->64-->54k-->68-->90 --> Rule out DIC and treat underlying cause # Anemia of chronic disease due to underlying chronic medical issues, multifactorial v Gi bleed --> Anemia workup has been ordered, rule out gi bleed --> No evidence of hemolysis is noted, peripheral smear has been reviewed. --> Hgb goal >7. Transfuse prn. --> Epogen or iron at this time is not particularly indicated --> Medications have been reviewed --> low threshold for gi evaluation in case has occult + --> iron 5, tibc 157, ferritin >800 --> hgb trend: 8.4-->9.8 # Sepsis --> likely due to pna --> HIV workup --> on abx: bactrim/coral --> off pressors # Syncope # Tachycardia # Schizophrenia Appreciate consultation and gale RN Subjective Allergies: Coded Allergies: No Known Allergies (Unverified , 05/22/19) Subjective 05/25: no acute distress, us abd shows splenomegaly, labs reviewed, nc 2l 05/26: labs have been reviewed, no night sweats, imaging is noted 05/28: no acute events, labs reviewed, remains on abx Objective Objective Current Medications Medications (Trade) Dose Ordered Sig/Ana Route PRN Reason Start Time Stop Time Status Last Admin Dose Admin Acetaminophen (Tylenol) 650 mg Q4H PRN ORAL fever (T>100.5) 05/28/19 14:30 06/21/19 14:29 Atovaquone (Mepron Susp) 750 mg TWICE A DAY ORAL 2/2/20 18:00 06/25/19 17:59 05/28/19 17:22 Azithromycin (Zithromax) 1,200 mg ONCE A WEEK ORAL 06/02/19 18:00 06/02/19 18:01 Cefepime HCl 1 gm/ Dextrose 55 ml @ 110 mls/hr EVERY 12 HOURS IVPB 05/28/19 21:00 06/02/19 20:59 Chlorhexidine Gluconate (Jessie-Hex 2%) 1 applic DAILY@2000 TOPIC 05/28/19 20:00 06/23/19 19:59 Heparin Sodium (Porcine) (Heparin 5000 units/ml) 5,000 units EVERY 12 HOURS SUBQ 05/28/19 21:00 06/22/19 08:59 Loperamide HCl (Imodium) 2 mg Q4H PRN ORAL Diarrhea 05/28/19 14:15 06/22/19 14:14 Olanzapine (ZyPREXA) 20 mg BEDTIME ORAL 05/28/19 21:00 06/24/19 20:59 Ondansetron HCl (Zofran) 4 mg Q6H PRN IVP Nausea & Vomiting 05/28/19 14:30 06/21/19 14:29 Pantoprazole (Protonix) 40 mg ACBREAKFAST ORAL 05/29/19 06:30 06/25/19 06:29 Promethazine HCl/ Codeine (Phenergan with Codeine) 5 ml Q4H PRN ORAL For Cough 05/28/19 14:30 06/22/19 14:29 Sodium Chloride 1,000 ml @ 100 mls/hr Q10H IVLG 05/28/19 14:15 06/21/19 23:11 05/28/19 14:54 Theophylline (Nicanor-Dur) 100 mg EVERY 12 HOURS ORAL 05/28/19 21:00 06/22/19 20:59 Last 24 Hour Vital Signs Date Time Temp Pulse Resp B/P (MAP) Pulse Ox O2 Delivery O2 Flow Rate FiO2 05/28/19 16:00 98.7 77 20 105/63 (77) 95 05/28/19 15:20 Nasal Cannula 2.0 28 05/28/19 15:20 Nasal Cannula 2.0 28 05/28/19 14:06 98.6 72 18 112/70 (84) 96 05/28/19 12:00 98.2 72 18 117/64 (81) 100 05/28/19 11:25 Nasal Cannula 2.0 28 05/28/19 11:25 Nasal Cannula 2.0 28 05/28/19 09:00 Nasal Cannula 2.0 Nasal Cannula 2.0 05/28/19 08:00 97.9 85 18 121/69 (86) 99 05/28/19 07:03 Nasal Cannula 2.0 28 05/28/19 07:03 Nasal Cannula 2.0 28 05/28/19 04:00 66 05/28/19 04:00 97.4 72 18 110/71 (84) 98 05/28/19 02:25 Nasal Cannula 2.0 28 05/28/19 02:25 Nasal Cannula 2.0 28 05/28/19 00:00 80 05/28/19 00:00 97.3 70 18 108/66 (80) 99 05/27/19 22:54 75 18 97 Nasal Cannula 2.0 28 05/27/19 22:51 73 16 96 Nasal Cannula 2.0 28 05/27/19 20:00 98.1 72 18 114/65 (81) 100 05/27/19 20:00 65 05/27/19 20:00 Nasal Cannula 2.0 Nasal Cannula 2.0 05/27/19 19:36 77 18 97 Nasal Cannula 2.0 28 05/27/19 19:35 76 16 97 Nasal Cannula 2.0 28 05/27/19 16:15 74 05/27/19 16:00 97.7 76 18 113/66 (82) 99 05/27/19 16:00 Nasal Cannula 2.0 Nasal Cannula 2.0 05/27/19 15:50 69 16 96 Nasal Cannula 2.0 28 05/27/19 15:50 74 18 97 Nasal Cannula 2.0 28 05/27/19 12:00 98.1 66 20 127/69 (88) 99 05/27/19 12:00 Nasal Cannula 2.0 Nasal Cannula 2.0 05/27/19 11:46 63 05/27/19 11:10 70 18 98 Nasal Cannula 2.0 28 05/27/19 11:10 66 16 97 Nasal Cannula 2.0 28 05/27/19 08:00 Nasal Cannula 2.0 Nasal Cannula 2.0 05/27/19 08:00 97.7 78 18 125/74 (91) 100 05/27/19 07:50 78 18 98 Nasal Cannula 2.0 28 05/27/19 07:50 62 18 96 Nasal Cannula 2.0 28 05/27/19 07:42 61 05/27/19 04:00 97.4 71 18 115/73 (87) 96 05/27/19 04:00 69 05/27/19 03:31 Nasal Cannula 2.0 28 05/27/19 03:31 Nasal Cannula 2.0 28 05/27/19 00:00 60 05/27/19 00:00 99.2 64 18 110/67 (81) 99 05/26/19 23:05 79 20 97 Nasal Cannula 2.0 28 05/26/19 23:05 75 18 97 Nasal Cannula 2.0 28 05/26/19 21:00 Nasal Cannula 2.0 Nasal Cannula 2.0 05/26/19 20:00 100.0 74 18 112/64 (80) 99 05/26/19 20:00 68 Intake and Output 05/27/19 05/28/19 19:00 07:00 Intake Total 810 ml Output Total 3300 ml 700 ml Balance -2490 ml -700 ml Intake Oral 500 ml IV Total 310 ml Output Urine Total 3300 ml 700 ml # Voids 1 # Bowel Movements 3 1 Labs Test 05/26/19 05:00 05/27/19 06:20 05/28/19 05:30 White Blood Count 2.8 K/UL (4.8-10.8) 4.5 K/UL (4.8-10.8) 3.5 K/UL (4.8-10.8) Red Blood Count 2.83 M/UL (4.70-6.10) 3.16 M/UL (4.70-6.10) 3.15 M/UL (4.70-6.10) Hemoglobin 8.9 G/DL (14.2-18.0) 9.9 G/DL (14.2-18.0) 9.8 G/DL (14.2-18.0) Hematocrit 25.7 % (42.0-52.0) 28.0 % (42.0-52.0) 28.3 % (42.0-52.0) Mean Corpuscular Volume 91 FL (80-99) 88 FL (80-99) 90 FL (80-99) Mean Corpuscular Hemoglobin 31.6 PG (27.0-31.0) 31.5 PG (27.0-31.0) 31.1 PG (27.0-31.0) Mean Corpuscular Hemoglobin Concent 34.8 G/DL (32.0-36.0) 35.6 G/DL (32.0-36.0) 34.5 G/DL (32.0-36.0) Red Cell Distribution Width 14.8 % (11.6-14.8) 14.6 % (11.6-14.8) 15.1 % (11.6-14.8) Platelet Count 79 K/UL (150-450) 103 K/UL (150-450) 90 K/UL (150-450) Mean Platelet Volume 6.2 FL (6.5-10.1) 6.5 FL (6.5-10.1) 6.7 FL (6.5-10.1) Neutrophils (%) (Auto) % (45.0-75.0) 56.7 % (45.0-75.0) % (45.0-75.0) Lymphocytes (%) (Auto) % (20.0-45.0) 22.7 % (20.0-45.0) % (20.0-45.0) Monocytes (%) (Auto) % (1.0-10.0) 12.7 % (1.0-10.0) % (1.0-10.0) Eosinophils (%) (Auto) % (0.0-3.0) 6.4 % (0.0-3.0) % (0.0-3.0) Basophils (%) (Auto) % (0.0-2.0) 1.5 % (0.0-2.0) % (0.0-2.0) Differential Total Cells Counted 100 100 Neutrophils % (Manual) 66 % (45-75) 50 % (45-75) Lymphocytes % (Manual) 24 % (20-45) 30 % (20-45) Monocytes % (Manual) 7 % (1-10) 11 % (1-10) Eosinophils % (Manual) 3 % (0-3) 9 % (0-3) Basophils % (Manual) 0 % (0-2) 0 % (0-2) Band Neutrophils 0 % (0-8) 0 % (0-8) Platelet Estimate Decreased Decreased Platelet Morphology Normal Normal Anisocytosis 1+ 1+ Sodium Level 145 MMOL/L (136-145) 140 MMOL/L (136-145) 142 MMOL/L (136-145) Potassium Level 3.0 MMOL/L (3.5-5.1) 3.9 MMOL/L (3.5-5.1) 3.6 MMOL/L (3.5-5.1) Chloride Level 112 MMOL/L (98-107) 106 MMOL/L (98-107) 111 MMOL/L (98-107) Carbon Dioxide Level 25 MMOL/L (21-32) 26 MMOL/L (21-32) 26 MMOL/L (21-32) Anion Gap 9 mmol/L (5-15) 8 mmol/L (5-15) 6 mmol/L (5-15) Blood Urea Nitrogen 3 mg/dL (7-18) 7 mg/dL (7-18) 10 mg/dL (7-18) Creatinine 0.8 MG/DL (0.55-1.30) 1.0 MG/DL (0.55-1.30) 0.9 MG/DL (0.55-1.30) Estimat Glomerular Filtration Rate > 60 mL/min (>60) > 60 mL/min (>60) > 60 mL/min (>60) Glucose Level 87 MG/DL (74-106) 95 MG/DL (74-106) 106 MG/DL (74-106) Calcium Level 7.7 MG/DL (8.5-10.1) 8.0 MG/DL (8.5-10.1) 8.0 MG/DL (8.5-10.1) Height (Feet): 5 Height (Inches): 10.00 Weight (Pounds): 147 Objective Physical Exam: Vitals: reviewed General Appearance: NAD HEENT: normocephalic, atraumatic Neck: non-tender, normal alignment Respiratory/Chest: normal breath sounds bilaterally Cardiovascular/Chest: normal peripheral pulses, normal rate Abdomen: normal bowel sounds, soft, nontender Extremities: normal range of motion Neuro: ++ anxious Romie Cox MD May 28, 2019 19:58
[2019-05-28] MEDS: OLANZapine 10mg tab ORAL SCH (20:53)
[2019-05-28] MEDS: Dyna-Hex 2% Top Sol 2oz TOPIC SCH (20:53)
[2019-05-29] VITALS: BP 110/67
[2019-05-29 04:00] VITALS: BP 114/67
[2019-05-29 07:57] LABS: HEMATOCRIT 28.4 % (42.0-52.0); HEMOGLOBIN 9.8 G/DL (14.2-18.0); MEAN CORPUSCULAR VOLUME 90 FL (80-99); PLATELET COUNT 84 K/UL (150-450); RED BLOOD COUNT 3.16 M/UL (4.70-6.10); RED CELL DISTRIBUTION WIDTH 15.1 % (11.6-14.8); WHITE BLOOD COUNT 3.3 K/UL (4.8-10.8)
[2019-05-29 08:00] VITALS: BP 125/63
[2019-05-29 08:19] LABS: ANION GAP 7 mmol/L (5-15); BLOOD UREA NITROGEN 13 mg/dL (7-18); CALCIUM 8.5 MG/DL (8.5-10.1); CARBON DIOXIDE 27 MMOL/L (21-32); CHLORIDE 108 MMOL/L (98-107); CREATININE 0.8 MG/DL (0.55-1.30); POTASSIUM 3.7 MMOL/L (3.5-5.1); SODIUM 142 MMOL/L (136-145)
[2019-05-29] MEDS: Atovaquone 750mg/5ml Susp ORAL SCH ×2 (08:42→17:12)
[2019-05-29] MEDS: Theophylline ER 100mg ORAL SCH ×2 (08:42→20:22)
[2019-05-29] MEDS: Cefepime HCl 1 GM in D5W 55 ML IVPB SCH ×2 (08:42→20:22)
[2019-05-29] MEDS: Heparin 5000 units/ml inj SUBQ SCH ×2 (08:43→20:22)
--- NOTE | 2019-05-29 09:24 | Hematology/Onc Progress Note ---
Assessment/Plan Assessment/Plan Assessment and Recs: # Thrombocytopenia - potential causes multifactorial, evaluate liver and viral etiologies to begin, in this case HIV++ being w/u by id, also with pna being treated --> Hep panel and HIV ++ and rx for id --> US abd to evaluate for cirrhosis and hsm ordered - positive for splenomegaly --> Peripheral smear ordered to evaluate for blasts /schistocytes --> is wnl --> abx and other meds have been reviewed --> ok for ppx if plt >50k w/ either heparin or lovenox --> Transfuse if Plt < 20k and fever, or if Plt < 10k without fever --> plt trend 90-->64-->54k-->68-->90-->84 --> Rule out DIC and treat underlying cause # Anemia of chronic disease due to underlying chronic medical issues, multifactorial v Gi bleed --> Anemia workup has been ordered, rule out gi bleed --> No evidence of hemolysis is noted, peripheral smear has been reviewed. --> Hgb goal >7. Transfuse prn. --> Epogen or iron at this time is not particularly indicated --> Medications have been reviewed --> low threshold for gi evaluation in case has occult + --> iron 5, tibc 157, ferritin >800 --> hgb trend: 8.4-->9.8 # Sepsis --> likely due to pna --> HIV workup --> on abx: bactrim/coral --> off pressors # Syncope # Tachycardia # Schizophrenia Appreciate consultation and gale RN Subjective Constitutional: Denies: no symptoms, chills, fever, malaise, weakness, other Respiratory: Denies: no symptoms, cough, shortness of breath, SOB with excertion, SOB at rest, sputum, wheezing, other Gastrointestinal/Abdominal: Denies: no symptoms, abdomen distended, abdominal pain, black stools, tarry stools, blood in stool, constipated, diarrhea, difficulty swallowing, nausea, poor appetite, poor fluid intake, rectal bleeding , vomiting, other Genitourinary: Denies: no symptoms, burning, discharge, frequency, flank pain, hematuria, incontinence, pain, urgency, other Neurologic/Psychiatric: Denies: no symptoms, anxiety, depressed, emotional problems, headache, numbness, paresthesia, pre-existing deficit, seizure, tingling, tremors, weakness, other Endocrine: Denies: no symptoms, excessive sweating, flushing, intolerance to cold, intolerance to heat, increased hunger, increased thirst, increased urine, unexplained weight gain, unexplained weight loss, other Hematologic/Lymphatic: Denies: no symptoms, anemia, easy bleeding, easy bruising, adenopathy, other Allergies: Coded Allergies: No Known Allergies (Unverified , 05/22/19) Subjective 05/25: no acute distress, us abd shows splenomegaly, labs reviewed, nc 2l 05/26: labs have been reviewed, no night sweats, imaging is noted 05/28: no acute events, labs reviewed, remains on abx 05/29: no bleeding or chills, no night sweats, no major changes Objective Objective Current Medications Medications (Trade) Dose Ordered Sig/Ana Route PRN Reason Start Time Stop Time Status Last Admin Dose Admin Acetaminophen (Tylenol) 650 mg Q4H PRN ORAL fever (T>100.5) 05/28/19 14:30 06/21/19 14:29 Atovaquone (Mepron Susp) 750 mg TWICE A DAY ORAL 05/28/19 18:00 06/25/19 17:59 05/29/19 08:42 Azithromycin (Zithromax) 1,200 mg ONCE A WEEK ORAL 06/02/19 18:00 06/02/19 18:01 Cefepime HCl 1 gm/ Dextrose 55 ml @ 110 mls/hr EVERY 12 HOURS IVPB 05/28/19 21:00 06/02/19 20:59 05/29/19 08:42 Chlorhexidine Gluconate (Jessie-Hex 2%) 1 applic DAILY@2000 TOPIC 05/28/19 20:00 06/23/19 19:59 05/28/19 20:53 Heparin Sodium (Porcine) (Heparin 5000 units/ml) 5,000 units EVERY 12 HOURS SUBQ 05/28/19 21:00 06/22/19 08:59 Loperamide HCl (Imodium) 2 mg Q4H PRN ORAL Diarrhea 05/28/19 14:15 06/22/19 14:14 Olanzapine (ZyPREXA) 20 mg BEDTIME ORAL 05/28/19 21:00 06/24/19 20:59 05/28/19 20:53 Ondansetron HCl (Zofran) 4 mg Q6H PRN IVP Nausea & Vomiting 05/28/19 14:30 06/21/19 14:29 Pantoprazole (Protonix) 40 mg ACBREAKFAST ORAL 05/29/19 06:30 06/25/19 06:29 05/29/19 05:49 Promethazine HCl/ Codeine (Phenergan with Codeine) 5 ml Q4H PRN ORAL For Cough 05/28/19 14:30 06/22/19 14:29 Sodium Chloride 1,000 ml @ 100 mls/hr Q10H IVLG 05/28/19 14:15 06/21/19 23:11 05/29/19 00:42 Theophylline (Nicanor-Dur) 100 mg EVERY 12 HOURS ORAL 05/28/19 21:00 06/22/19 20:59 05/29/19 08:42 Last 24 Hour Vital Signs Date Time Temp Pulse Resp B/P (MAP) Pulse Ox O2 Delivery O2 Flow Rate FiO2 05/29/19 08:00 98.6 85 18 125/63 (83) 94 05/29/19 04:00 97.8 71 19 114/67 (83) 98 05/29/19 00:00 98.4 75 20 110/67 (81) 96 05/28/19 21:27 73 18 99 Nasal Cannula 2.0 28 05/28/19 21:00 Nasal Cannula 2.0 Nasal Cannula 2.0 05/28/19 20:00 99.7 74 19 124/72 (89) 96 05/28/19 16:00 98.7 77 20 105/63 (77) 95 05/28/19 15:20 Nasal Cannula 2.0 28 05/28/19 15:20 Nasal Cannula 2.0 28 05/28/19 14:06 98.6 72 18 112/70 (84) 96 05/28/19 12:00 98.2 72 18 117/64 (81) 100 05/28/19 11:25 Nasal Cannula 2.0 28 05/28/19 11:25 Nasal Cannula 2.0 28 05/28/19 09:00 Nasal Cannula 2.0 Nasal Cannula 2.0 05/28/19 08:00 97.9 85 18 121/69 (86) 99 05/28/19 07:03 Nasal Cannula 2.0 28 05/28/19 07:03 Nasal Cannula 2.0 28 05/28/19 04:00 66 05/28/19 04:00 97.4 72 18 110/71 (84) 98 05/28/19 02:25 Nasal Cannula 2.0 28 05/28/19 02:25 Nasal Cannula 2.0 28 05/28/19 00:00 80 05/28/19 00:00 97.3 70 18 108/66 (80) 99 05/27/19 22:54 75 18 97 Nasal Cannula 2.0 28 05/27/19 22:51 73 16 96 Nasal Cannula 2.0 28 05/27/19 20:00 98.1 72 18 114/65 (81) 100 05/27/19 20:00 65 05/27/19 20:00 Nasal Cannula 2.0 Nasal Cannula 2.0 05/27/19 19:36 77 18 97 Nasal Cannula 2.0 28 05/27/19 19:35 76 16 97 Nasal Cannula 2.0 28 05/27/19 16:15 74 05/27/19 16:00 97.7 76 18 113/66 (82) 99 05/27/19 16:00 Nasal Cannula 2.0 Nasal Cannula 2.0 05/27/19 15:50 69 16 96 Nasal Cannula 2.0 28 05/27/19 15:50 74 18 97 Nasal Cannula 2.0 28 05/27/19 12:00 98.1 66 20 127/69 (88) 99 05/27/19 12:00 Nasal Cannula 2.0 Nasal Cannula 2.0 05/27/19 11:46 63 05/27/19 11:10 70 18 98 Nasal Cannula 2.0 28 05/27/19 11:10 66 16 97 Nasal Cannula 2.0 28 Intake and Output 05/28/19 05/29/19 19:00 07:00 Intake Total 1000 ml 4810 ml Output Total 550 ml Balance 450 ml 4810 ml Intake Oral 600 ml 600 ml IV Total 400 ml 4210 ml Output Urine Total 550 ml # Voids 2 2 # Bowel Movements 1 Labs Test 05/27/19 06:20 05/28/19 05:30 05/29/19 05:39 White Blood Count 4.5 K/UL (4.8-10.8) 3.5 K/UL (4.8-10.8) 3.3 K/UL (4.8-10.8) Red Blood Count 3.16 M/UL (4.70-6.10) 3.15 M/UL (4.70-6.10) 3.16 M/UL (4.70-6.10) Hemoglobin 9.9 G/DL (14.2-18.0) 9.8 G/DL (14.2-18.0) 9.8 G/DL (14.2-18.0) Hematocrit 28.0 % (42.0-52.0) 28.3 % (42.0-52.0) 28.4 % (42.0-52.0) Mean Corpuscular Volume 88 FL (80-99) 90 FL (80-99) 90 FL (80-99) Mean Corpuscular Hemoglobin 31.5 PG (27.0-31.0) 31.1 PG (27.0-31.0) 31.1 PG (27.0-31.0) Mean Corpuscular Hemoglobin Concent 35.6 G/DL (32.0-36.0) 34.5 G/DL (32.0-36.0) 34.6 G/DL (32.0-36.0) Red Cell Distribution Width 14.6 % (11.6-14.8) 15.1 % (11.6-14.8) 15.1 % (11.6-14.8) Platelet Count 103 K/UL (150-450) 90 K/UL (150-450) 84 K/UL (150-450) Mean Platelet Volume 6.5 FL (6.5-10.1) 6.7 FL (6.5-10.1) 7.8 FL (6.5-10.1) Neutrophils (%) (Auto) 56.7 % (45.0-75.0) % (45.0-75.0) % (45.0-75.0) Lymphocytes (%) (Auto) 22.7 % (20.0-45.0) % (20.0-45.0) % (20.0-45.0) Monocytes (%) (Auto) 12.7 % (1.0-10.0) % (1.0-10.0) % (1.0-10.0) Eosinophils (%) (Auto) 6.4 % (0.0-3.0) % (0.0-3.0) % (0.0-3.0) Basophils (%) (Auto) 1.5 % (0.0-2.0) % (0.0-2.0) % (0.0-2.0) Sodium Level 140 MMOL/L (136-145) 142 MMOL/L (136-145) 142 MMOL/L (136-145) Potassium Level 3.9 MMOL/L (3.5-5.1) 3.6 MMOL/L (3.5-5.1) 3.7 MMOL/L (3.5-5.1) Chloride Level 106 MMOL/L (98-107) 111 MMOL/L (98-107) 108 MMOL/L (98-107) Carbon Dioxide Level 26 MMOL/L (21-32) 26 MMOL/L (21-32) 27 MMOL/L (21-32) Anion Gap 8 mmol/L (5-15) 6 mmol/L (5-15) 7 mmol/L (5-15) Blood Urea Nitrogen 7 mg/dL (7-18) 10 mg/dL (7-18) 13 mg/dL (7-18) Creatinine 1.0 MG/DL (0.55-1.30) 0.9 MG/DL (0.55-1.30) 0.8 MG/DL (0.55-1.30) Estimat Glomerular Filtration Rate > 60 mL/min (>60) > 60 mL/min (>60) > 60 mL/min (>60) Glucose Level 95 MG/DL (74-106) 106 MG/DL (74-106) 93 MG/DL (74-106) Calcium Level 8.0 MG/DL (8.5-10.1) 8.0 MG/DL (8.5-10.1) 8.5 MG/DL (8.5-10.1) Differential Total Cells Counted 100 Neutrophils % (Manual) 50 % (45-75) Lymphocytes % (Manual) 30 % (20-45) Monocytes % (Manual) 11 % (1-10) Eosinophils % (Manual) 9 % (0-3) Basophils % (Manual) 0 % (0-2) Band Neutrophils 0 % (0-8) Platelet Estimate Decreased Platelet Morphology Normal Anisocytosis 1+ Height (Feet): 5 Height (Inches): 10.00 Weight (Pounds): 147 Objective Physical Exam: Vitals: reviewed General Appearance: NAD HEENT: normocephalic, atraumatic Neck: non-tender, normal alignment Respiratory/Chest: normal breath sounds bilaterally Cardiovascular/Chest: normal peripheral pulses, normal rate Abdomen: normal bowel sounds, soft, nontender Extremities: normal range of motion Neuro: ++ anxious Romie Cox MD May 29, 2019 09:24
--- NOTE | 2019-05-29 09:30 | General Progress Note ---
Assessment/Plan Problem List: (1) Pneumonia ICD Codes: J18.9 - Pneumonia, unspecified organism SNOMED: 455030176 (2) Tachycardia ICD Codes: R00.0 - Tachycardia, unspecified SNOMED: 2272147 (3) Sepsis ICD Codes: A41.9 - Sepsis, unspecified organism SNOMED: 22959337 (4) Syncope ICD Codes: R55 - Syncope and collapse SNOMED: 976517087 (5) Schizophrenia ICD Codes: F20.9 - Schizophrenia, unspecified SNOMED: 55523567 Status: unchanged Assessment/Plan: o2 pulm tx abc pt diet eval heme eval cbc bmp am dc plan snf Subjective Constitutional: Reports: weakness Allergies: Coded Allergies: No Known Allergies (Unverified , 05/22/19) All Systems: reviewed and negative except above Subjective o2nc calm in bed Objective Last 24 Hour Vital Signs Date Time Temp Pulse Resp B/P (MAP) Pulse Ox O2 Delivery O2 Flow Rate FiO2 05/29/19 08:00 98.6 85 18 125/63 (83) 94 05/29/19 04:00 97.8 71 19 114/67 (83) 98 05/29/19 00:00 98.4 75 20 110/67 (81) 96 05/28/19 21:27 73 18 99 Nasal Cannula 2.0 28 05/28/19 21:00 Nasal Cannula 2.0 Nasal Cannula 2.0 05/28/19 20:00 99.7 74 19 124/72 (89) 96 05/28/19 16:00 98.7 77 20 105/63 (77) 95 05/28/19 15:20 Nasal Cannula 2.0 28 05/28/19 15:20 Nasal Cannula 2.0 28 05/28/19 14:06 98.6 72 18 112/70 (84) 96 05/28/19 12:00 98.2 72 18 117/64 (81) 100 05/28/19 11:25 Nasal Cannula 2.0 28 05/28/19 11:25 Nasal Cannula 2.0 28 Intake and Output 05/28/19 05/29/19 18:59 06:59 Intake Total 1000 ml 4810 ml Output Total 550 ml Balance 450 ml 4810 ml Intake Oral 600 ml 600 ml IV Total 400 ml 4210 ml Output Urine Total 550 ml # Voids 2 2 # Bowel Movements 1 Laboratory Tests 05/29/19 05:39: White Blood Count 3.3L, Red Blood Count 3.16L, Hemoglobin 9.8L, Hematocrit 28.4L , Mean Corpuscular Volume 90, Mean Corpuscular Hemoglobin 31.1H, Mean Corpuscular Hemoglobin Concent 34.6, Red Cell Distribution Width 15.1H, Platelet Count 84L, Mean Platelet Volume 7.8, Neutrophils (%) (Auto) , Lymphocytes (%) (Auto) , Monocytes (%) (Auto) , Eosinophils (%) (Auto) , Basophils (%) (Auto) , Neutrophils % (Manual) [Pending], Lymphocytes % (Manual) [Pending], Platelet Estimate [Pending], Platelet Morphology [Pending], Sodium Level 142, Potassium Level 3.7, Chloride Level 108H, Carbon Dioxide Level 27, Anion Gap 7, Blood Urea Nitrogen 13, Creatinine 0.8, Estimat Glomerular Filtration Rate > 60, Glucose Level 93, Calcium Level 8.5 Height (Feet): 5 Height (Inches): 10.00 Weight (Pounds): 147 General Appearance: lethargic EENT: normal ENT inspection Neck: normal alignment Cardiovascular: normal peripheral pulses, normal rate, regular rhythm Respiratory/Chest: chest wall non-tender, lungs clear, normal breath sounds Abdomen: normal bowel sounds, non tender, soft Extremities: normal inspection Edema: no edema noted Arm (L), no edema noted Arm (R), no edema noted Leg (L), no edema noted Leg (R), no edema noted Pedal (L), no edema noted Pedal (R), no edema noted Generalized Neurologic: motor weakness Skin: normal pigmentation, warm/dry Junior Hicks DO May 29, 2019 09:30
[2019-05-29 12:00] VITALS: BP 148/106
--- NOTE | 2019-05-29 12:53 | Pulmonology Progress Note ---
Assessment/Plan Problems: (1) Bacteremia (2) Sepsis (3) Pneumonia (4) Schizophrenia Assessment/Plan all reviewed iv abx, afebrile now check cultures sputum c/s abx by ID evaluation tolerating feeding dvt prophylaxis. Subjective ROS Limited/Unobtainable: No Interval Events: comfortable, Allergies: Coded Allergies: No Known Allergies (Unverified , 05/22/19) Objective Last 24 Hour Vital Signs Date Time Temp Pulse Resp B/P (MAP) Pulse Ox O2 Delivery O2 Flow Rate FiO2 05/29/19 12:00 98.1 94 18 148/106 (120) 99 05/29/19 09:00 Nasal Cannula 2.0 Nasal Cannula 2.0 05/29/19 08:00 98.6 85 18 125/63 (83) 94 05/29/19 04:00 97.8 71 19 114/67 (83) 98 05/29/19 00:00 98.4 75 20 110/67 (81) 96 05/28/19 21:27 73 18 99 Nasal Cannula 2.0 28 05/28/19 21:00 Nasal Cannula 2.0 Nasal Cannula 2.0 05/28/19 20:00 99.7 74 19 124/72 (89) 96 05/28/19 16:00 98.7 77 20 105/63 (77) 95 05/28/19 15:20 Nasal Cannula 2.0 28 05/28/19 15:20 Nasal Cannula 2.0 28 05/28/19 14:06 98.6 72 18 112/70 (84) 96 Intake and Output 05/28/19 05/29/19 19:00 07:00 Intake Total 1000 ml 4810 ml Output Total 550 ml Balance 450 ml 4810 ml Intake Oral 600 ml 600 ml IV Total 400 ml 4210 ml Output Urine Total 550 ml # Voids 2 2 # Bowel Movements 1 General Appearance: WD/WN HEENT: normocephalic, anicteric Respiratory/Chest: chest wall non-tender, lungs clear Cardiovascular: normal rate, regular rhythm, no JVD Abdomen: soft, non tender Genitourinary: normal external genitalia Skin: no rash Microbiology Date/Time Source Procedure Growth Status 05/26/19 18:25 Blood Blood Culture - Preliminary NO GROWTH AFTER 48 HOURS Resulted 05/26/19 18:10 Blood Blood Culture - Preliminary NO GROWTH AFTER 48 HOURS Resulted Laboratory Tests 05/29/19 05:39: White Blood Count 3.3L, Red Blood Count 3.16L, Hemoglobin 9.8L, Hematocrit 28.4L , Mean Corpuscular Volume 90, Mean Corpuscular Hemoglobin 31.1H, Mean Corpuscular Hemoglobin Concent 34.6, Red Cell Distribution Width 15.1H, Platelet Count 84L, Mean Platelet Volume 7.8, Neutrophils (%) (Auto) , Lymphocytes (%) (Auto) , Monocytes (%) (Auto) , Eosinophils (%) (Auto) , Basophils (%) (Auto) , Differential Total Cells Counted 100, Neutrophils % ( Manual) 46, Lymphocytes % (Manual) 29, Monocytes % (Manual) 15H, Eosinophils % ( Manual) 10H, Basophils % (Manual) 0, Band Neutrophils 0, Platelet Estimate DecreasedL, Platelet Morphology Normal, Anisocytosis 1+, Sodium Level 142, Potassium Level 3.7, Chloride Level 108H, Carbon Dioxide Level 27, Anion Gap 7, Blood Urea Nitrogen 13, Creatinine 0.8, Estimat Glomerular Filtration Rate > 60 , Glucose Level 93, Calcium Level 8.5 Current Medications Medications (Trade) Dose Ordered Sig/Ana Route PRN Reason Start Time Stop Time Status Last Admin Dose Admin Acetaminophen (Tylenol) 650 mg Q4H PRN ORAL fever (T>100.5) 05/28/19 14:30 06/21/19 14:29 Atovaquone (Mepron Susp) 750 mg TWICE A DAY ORAL 05/28/19 18:00 06/25/19 17:59 05/29/19 08:42 Azithromycin (Zithromax) 1,200 mg ONCE A WEEK ORAL 06/02/19 18:00 06/02/19 18:01 Cefepime HCl 1 gm/ Dextrose 55 ml @ 110 mls/hr EVERY 12 HOURS IVPB 05/28/19 21:00 06/02/19 20:59 05/29/19 08:42 Chlorhexidine Gluconate (Jessie-Hex 2%) 1 applic DAILY@2000 TOPIC 05/28/19 20:00 06/23/19 19:59 05/28/19 20:53 Heparin Sodium (Porcine) (Heparin 5000 units/ml) 5,000 units EVERY 12 HOURS SUBQ 05/28/19 21:00 06/22/19 08:59 Loperamide HCl (Imodium) 2 mg Q4H PRN ORAL Diarrhea 05/28/19 14:15 06/22/19 14:14 Olanzapine (ZyPREXA) 20 mg BEDTIME ORAL 05/28/19 21:00 06/24/19 20:59 05/28/19 20:53 Ondansetron HCl (Zofran) 4 mg Q6H PRN IVP Nausea & Vomiting 05/28/19 14:30 06/21/19 14:29 Pantoprazole (Protonix) 40 mg ACBREAKFAST ORAL 05/29/19 06:30 06/25/19 06:29 05/29/19 05:49 Promethazine HCl/ Codeine (Phenergan with Codeine) 5 ml Q4H PRN ORAL For Cough 05/28/19 14:30 06/22/19 14:29 Sodium Chloride 1,000 ml @ 100 mls/hr Q10H IVLG 05/28/19 14:15 06/21/19 23:11 05/29/19 10:30 Theophylline (Nicanor-Dur) 100 mg EVERY 12 HOURS ORAL 05/28/19 21:00 06/22/19 20:59 05/29/19 08:42 Yung Daniels MD May 29, 2019 12:53
--- NOTE | 2019-05-29 14:58 | Infectious Diseases Prog Note ---
Assessment/Plan Assessment/Plan Assessment: Septic Shock, SP PNA- r/o PCP Gram positive bacteremia- contaminant Probable UTI -05/24 sp cx C. albicans -05/22 Bcx 04/29 S. warnerii; 05/24Bcx NTD -u/a wbc 10-15, nit neg, leuk +1; ux GBS COLONY COUNT: 40,000 - 50,000 CFU/ML -Influenza PCR neg -CXR: Redemonstration of increased opacity in the right upper lobe which is slightly better aerated. Right central line terminates in the cavoatrial junction. Fever; SP Leukocytosis, SP -CT head: No acute intracranial pathology. Right scalp operative bashir. Parenchymal volume loss, chronic and of likely no acute abnormality. Right ethmoidal and left sphenoid sinus findings suggesting sinusitis. HIV/AIDS- new diagnosis per patient (last tested was 7 years ago) -CD4 54 (7.7%) -RPR, GC/CL, acute hep panel neg GB wall thickening, non-specific -Abd US:Negative for gallstones. There is, however, gallbladder wall thickening. This can be seen with adjacent hepatocellular inflammation, other systemic causes of edema, acalculous acute cholecystitis, and acute cholecystitis due to occult stone disease. Consider hepatobiliary nuclear scan if there is high clinical suspicion Negative for dilated bile ducts Splenomegaly. Mild fullness to the right renal collecting system, nonspecific. Trace right perinephric fluid, nonspecific, can be seen in renal inflammation. Small right pleural effusion. Incidental finding small right renal cyst JALEEL,SP Tachycardia>bradycardia pancytopenia, improved schizophrenia assisted living facility resident Plan: -Continue Cefepime #4 (abx day #10/30-) for pNA -Continue PO Atovaquone #4 (abx d #10/14) empiric for PCP PNA given worsening pancytopenia -f/u PCP DFA -05/26 SP Meropenem #4, Bactrim #3 -05/24 SP IV Amikacin #3, IV vancomcyin #3 -05/23 SP Ertapenem x1 -05/22 SP Zosyn x1 -f/u cx -Monitor CBC/CMP, temperatures -aspiration precautions -f/u repeat Bcx x2 -f/u HIV VL, HIV genotype, PCP DFA -Azithrmoycin ppx for MAC -home health care case manager to assist in finding HIV clinic for patient Thank you for consulting [facility]. Will continue to follow along with you. Discussed with RN. Subjective Allergies: Coded Allergies: No Known Allergies (Unverified , 05/22/19) Subjective Tm 100 pancytopenia improved at 2l NC Objective Vital Signs Last 24 Hour Vital Signs Date Time Temp Pulse Resp B/P (MAP) Pulse Ox O2 Delivery O2 Flow Rate FiO2 05/29/19 12:00 98.1 94 18 148/106 (120) 99 05/29/19 09:00 Nasal Cannula 2.0 Nasal Cannula 2.0 05/29/19 08:00 98.6 85 18 125/63 (83) 94 05/29/19 04:00 97.8 71 19 114/67 (83) 98 05/29/19 00:00 98.4 75 20 110/67 (81) 96 05/28/19 21:27 73 18 99 Nasal Cannula 2.0 28 05/28/19 21:00 Nasal Cannula 2.0 Nasal Cannula 2.0 05/28/19 20:00 99.7 74 19 124/72 (89) 96 05/28/19 16:00 98.7 77 20 105/63 (77) 95 05/28/19 15:20 Nasal Cannula 2.0 28 05/28/19 15:20 Nasal Cannula 2.0 28 Height (Feet): 5 Height (Inches): 10.00 Weight (Pounds): 147 Objective General Appearance: alert, moderate distress, thin Head: normocephalic, atraumatic Eyes: bilateral eye normal inspection, bilateral eye PERRL ENT: hearing grossly normal, normal pharynx, no angioedema, normal voice Neck: full range of motion, supple, no meningismus, supple/symm/no masses Respiratory: chest non-tender, lungs clear, normal breath sounds, no rhonchi, no wheezing, speaking full sentences Cardiovascular: no murmur, normal capillary refill, tachycardia Gastrointestinal: normal bowel sounds, non tender, soft, non-distended, no guarding, no rebound Genitourinary: normal inspection, no CVA tenderness Musculoskeletal: back normal, digits/nails normal, no calf tenderness Neurologic: alert, oriented Skin: no rash, normal color, diaphoresis Microbiology Date/Time Source Procedure Growth Status 05/26/19 18:25 Blood Blood Culture - Preliminary NO GROWTH AFTER 48 HOURS Resulted 1/31/20 18:10 Blood Blood Culture - Preliminary NO GROWTH AFTER 48 HOURS Resulted Laboratory Tests Test 05/29/19 05:39 White Blood Count 3.3 K/UL (4.8-10.8) L Red Blood Count 3.16 M/UL (4.70-6.10) L Hemoglobin 9.8 G/DL (14.2-18.0) L Hematocrit 28.4 % (42.0-52.0) L Mean Corpuscular Volume 90 FL (80-99) Mean Corpuscular Hemoglobin 31.1 PG (27.0-31.0) H Mean Corpuscular Hemoglobin Concent 34.6 G/DL (32.0-36.0) Red Cell Distribution Width 15.1 % (11.6-14.8) H Platelet Count 84 K/UL (150-450) L Mean Platelet Volume 7.8 FL (6.5-10.1) Neutrophils (%) (Auto) % (45.0-75.0) Lymphocytes (%) (Auto) % (20.0-45.0) Monocytes (%) (Auto) % (1.0-10.0) Eosinophils (%) (Auto) % (0.0-3.0) Basophils (%) (Auto) % (0.0-2.0) Differential Total Cells Counted 100 Neutrophils % (Manual) 46 % (45-75) Lymphocytes % (Manual) 29 % (20-45) Monocytes % (Manual) 15 % (1-10) H Eosinophils % (Manual) 10 % (0-3) H Basophils % (Manual) 0 % (0-2) Band Neutrophils 0 % (0-8) Platelet Estimate Decreased L Platelet Morphology Normal Anisocytosis 1+ Sodium Level 142 MMOL/L (136-145) Potassium Level 3.7 MMOL/L (3.5-5.1) Chloride Level 108 MMOL/L (98-107) H Carbon Dioxide Level 27 MMOL/L (21-32) Anion Gap 7 mmol/L (5-15) Blood Urea Nitrogen 13 mg/dL (7-18) Creatinine 0.8 MG/DL (0.55-1.30) Estimat Glomerular Filtration Rate > 60 mL/min (>60) Glucose Level 93 MG/DL (74-106) Calcium Level 8.5 MG/DL (8.5-10.1) Current Medications Medications (Trade) Dose Ordered Sig/Ana Route PRN Reason Start Time Stop Time Status Last Admin Dose Admin Acetaminophen (Tylenol) 650 mg Q4H PRN ORAL fever (T>100.5) 05/28/19 14:30 06/21/19 14:29 Atovaquone (Mepron Susp) 750 mg TWICE A DAY ORAL 05/28/19 18:00 06/25/19 17:59 05/29/19 08:42 Azithromycin (Zithromax) 1,200 mg ONCE A WEEK ORAL 06/02/19 18:00 06/02/19 18:01 Cefepime HCl 1 gm/ Dextrose 55 ml @ 110 mls/hr EVERY 12 HOURS IVPB 05/28/19 21:00 06/02/19 20:59 05/29/19 08:42 Chlorhexidine Gluconate (Jessie-Hex 2%) 1 applic DAILY@2000 TOPIC 05/28/19 20:00 06/23/19 19:59 05/28/19 20:53 Heparin Sodium (Porcine) (Heparin 5000 units/ml) 5,000 units EVERY 12 HOURS SUBQ 05/28/19 21:00 06/22/19 08:59 Loperamide HCl (Imodium) 2 mg Q4H PRN ORAL Diarrhea 05/28/19 14:15 06/22/19 14:14 Olanzapine (ZyPREXA) 20 mg BEDTIME ORAL 05/28/19 21:00 06/24/19 20:59 05/28/19 20:53 Ondansetron HCl (Zofran) 4 mg Q6H PRN IVP Nausea & Vomiting 05/28/19 14:30 06/21/19 14:29 Pantoprazole (Protonix) 40 mg ACBREAKFAST ORAL 05/29/19 06:30 06/25/19 06:29 05/29/19 05:49 Promethazine HCl/ Codeine (Phenergan with Codeine) 5 ml Q4H PRN ORAL For Cough 05/28/19 14:30 06/22/19 14:29 Sodium Chloride 1,000 ml @ 100 mls/hr Q10H IVLG 05/28/19 14:15 06/21/19 23:11 05/29/19 10:30 Theophylline (Nicanor-Dur) 100 mg EVERY 12 HOURS ORAL 05/28/19 21:00 06/22/19 20:59 05/29/19 08:42 Evelia Suarez M.D. May 29, 2019 14:58
[2019-05-29 16:00] VITALS: BP 109/71
--- NOTE | 2019-05-29 17:06 | Diagnostic Imaging Report ---
Indication: Abdominal Pain Technique: 6.2 mCi of technetium 99 m-Choletec was injected intravenously. Planar imaging of the abdomen was then performed every 5 minutes up to 30 minutes and every 10 minutes up to one hour. Oblique views were also obtained. 2 mg of morphine given intravenously at minute 60. Findings: There is prompt uptake within the liver with good washout of radiotracer from the liver on subsequent imaging. There is excretion into the biliary ducts. Gallbladder activity is present in a timely fashion indicating patency of the cystic duct. Bowel activity is demonstrated in a timely fashion indicating patency of the common bile duct. Impression: Normal HIDA scan
[2019-05-29] MEDS: Dyna-Hex 2% Top Sol 2oz TOPIC SCH (20:21)
[2019-05-29] MEDS: OLANZapine 10mg tab ORAL SCH (20:22)
[2019-05-29 20:33] VITALS: BP 117/74
[2019-05-30 00:20] VITALS: BP 100/64
[2019-05-30 04:00] VITALS: BP 110/73
--- NOTE | 2019-05-30 04:15 | Progress Note ---
DATE: 05/29/2019 SUBJECTIVE: The patient is alert, is able to answer the questions, tolerating feeding. Sleep, appetite is adequate. MENTAL STATUS EXAMINATION: Alert and oriented to times, self and place. Mood is neutral. Affect is , congruent with mood. Thought process is concrete. Thought content, no suicidal, homicidal ideation. Cognition is impaired. Insight and judgment impaired. ASSESSMENT: 1. Schizophrenia. 2. Anxiety disorder. PLAN: 1. Olanzapine 20 mg p.o. at bedtime. 2. Ativan p.r.n. 3. Discussed with the nurse. Corona King M.D. DR: DANA JOB#: [id number] CC:
[2019-05-30 07:00] LABS: ANION GAP 6 mmol/L (5-15); BLOOD UREA NITROGEN 12 mg/dL (7-18); CALCIUM 8.7 MG/DL (8.5-10.1); CARBON DIOXIDE 27 MMOL/L (21-32); CHLORIDE 108 MMOL/L (98-107); CREATININE 0.8 MG/DL (0.55-1.30); POTASSIUM 3.8 MMOL/L (3.5-5.1); SODIUM 141 MMOL/L (136-145)
[2019-05-30 07:14] LABS: HEMATOCRIT 28.4 % (42.0-52.0); HEMOGLOBIN 9.7 G/DL (14.2-18.0); MEAN CORPUSCULAR VOLUME 90 FL (80-99); PLATELET COUNT 76 K/UL (150-450); RED BLOOD COUNT 3.17 M/UL (4.70-6.10); RED CELL DISTRIBUTION WIDTH 15.7 % (11.6-14.8); WHITE BLOOD COUNT 3.6 K/UL (4.8-10.8)
--- NOTE | 2019-05-30 07:19 | Hematology/Onc Progress Note ---
Assessment/Plan Assessment/Plan Assessment and Recs: # Thrombocytopenia - potential causes multifactorial, evaluate liver and viral etiologies to begin, in this case HIV++ being w/u by id, also with pna being treated --> Hep panel and HIV ++ and rx for id --> US abd to evaluate for cirrhosis and hsm ordered - positive for splenomegaly --> Peripheral smear ordered to evaluate for blasts /schistocytes --> is wnl --> abx and other meds have been reviewed --> ok for ppx if plt >50k w/ either heparin or lovenox --> Transfuse if Plt < 20k and fever, or if Plt < 10k without fever --> plt trend 90-->64-->54k-->68-->90-->84 --> Rule out DIC and treat underlying cause # Anemia of chronic disease due to underlying chronic medical issues, multifactorial v Gi bleed --> Anemia workup has been ordered, rule out gi bleed --> No evidence of hemolysis is noted, peripheral smear has been reviewed. --> Hgb goal >7. Transfuse prn. --> Epogen or iron at this time is not particularly indicated --> Medications have been reviewed --> low threshold for gi evaluation in case has occult + --> iron 5, tibc 157, ferritin >800 --> hgb trend: 8.4-->9.8 # Sepsis --> likely due to pna --> HIV workup --> on abx: bactrim/coral --> off pressors # Syncope # Tachycardia # Schizophrenia Appreciate consultation and gale RN Subjective Cardiovascular: Denies: no symptoms, chest pain, edema, irregular heart rate, lightheadedness, palpitations, syncope, other Respiratory: Denies: no symptoms, cough, shortness of breath, SOB with excertion, SOB at rest, sputum, wheezing, other Gastrointestinal/Abdominal: Denies: no symptoms, abdomen distended, abdominal pain, black stools, tarry stools, blood in stool, constipated, diarrhea, difficulty swallowing, nausea, poor appetite, poor fluid intake, rectal bleeding , vomiting, other Genitourinary: Denies: no symptoms, burning, discharge, frequency, flank pain, hematuria, incontinence, pain, urgency, other Neurologic/Psychiatric: Denies: no symptoms, anxiety, depressed, emotional problems, headache, numbness, paresthesia, pre-existing deficit, seizure, tingling, tremors, weakness, other Endocrine: Denies: no symptoms, excessive sweating, flushing, intolerance to cold, intolerance to heat, increased hunger, increased thirst, increased urine, unexplained weight gain, unexplained weight loss, other Allergies: Coded Allergies: No Known Allergies (Unverified , 05/22/19) Subjective 05/25: no acute distress, us abd shows splenomegaly, labs reviewed, nc 2l 05/26: labs have been reviewed, no night sweats, imaging is noted 05/28: no acute events, labs reviewed, remains on abx 05/29: no bleeding or chills, no night sweats, no major changes 05/30: no major changes, no bleeding or night sweats, labs from am pending Objective Objective Current Medications Medications (Trade) Dose Ordered Sig/Ana Route PRN Reason Start Time Stop Time Status Last Admin Dose Admin Acetaminophen (Tylenol) 650 mg Q4H PRN ORAL fever (T>100.5) 05/28/19 14:30 06/21/19 14:29 Atovaquone (Mepron Susp) 750 mg TWICE A DAY ORAL 05/28/19 18:00 06/25/19 17:59 05/29/19 17:12 Azithromycin (Zithromax) 1,200 mg ONCE A WEEK ORAL 06/02/19 18:00 06/02/19 18:01 Cefepime HCl 1 gm/ Dextrose 55 ml @ 110 mls/hr EVERY 12 HOURS IVPB 05/28/19 21:00 06/02/19 20:59 05/29/19 20:22 Chlorhexidine Gluconate (Jessie-Hex 2%) 1 applic DAILY@2000 TOPIC 05/28/19 20:00 06/23/19 19:59 05/29/19 20:21 Heparin Sodium (Porcine) (Heparin 5000 units/ml) 5,000 units EVERY 12 HOURS SUBQ 05/28/19 21:00 06/22/19 08:59 Loperamide HCl (Imodium) 2 mg Q4H PRN ORAL Diarrhea 05/28/19 14:15 06/22/19 14:14 Olanzapine (ZyPREXA) 20 mg BEDTIME ORAL 05/28/19 21:00 06/24/19 20:59 05/29/19 20:22 Ondansetron HCl (Zofran) 4 mg Q6H PRN IVP Nausea & Vomiting 05/28/19 14:30 06/21/19 14:29 05/29/19 15:38 Pantoprazole (Protonix) 40 mg ACBREAKFAST ORAL 05/29/19 06:30 06/25/19 06:29 05/30/19 06:12 Promethazine HCl/ Codeine (Phenergan with Codeine) 5 ml Q4H PRN ORAL For Cough 05/28/19 14:30 06/22/19 14:29 Sodium Chloride 1,000 ml @ 100 mls/hr Q10H IVLG 05/28/19 14:15 06/21/19 23:11 05/30/19 06:10 Theophylline (Nicanor-Dur) 100 mg EVERY 12 HOURS ORAL 05/28/19 21:00 06/22/19 20:59 05/29/19 20:22 Last 24 Hour Vital Signs Date Time Temp Pulse Resp B/P (MAP) Pulse Ox O2 Delivery O2 Flow Rate FiO2 05/30/19 04:00 98.0 79 20 110/73 (85) 99 05/30/19 00:20 98.0 59 20 100/64 (76) 100 05/29/19 21:00 Nasal Cannula 2.0 Nasal Cannula 2.0 05/29/19 20:33 98.6 66 20 117/74 (88) 100 05/29/19 16:00 98.1 71 19 109/71 (84) 99 05/29/19 12:00 98.1 94 18 148/106 (120) 99 05/29/19 09:00 Nasal Cannula 2.0 Nasal Cannula 2.0 05/29/19 08:00 98.6 85 18 125/63 (83) 94 05/29/19 04:00 97.8 71 19 114/67 (83) 98 05/29/19 00:00 98.4 75 20 110/67 (81) 96 05/28/19 21:27 73 18 99 Nasal Cannula 2.0 28 05/28/19 21:00 Nasal Cannula 2.0 Nasal Cannula 2.0 05/28/19 20:00 99.7 74 19 124/72 (89) 96 05/28/19 16:00 98.7 77 20 105/63 (77) 95 05/28/19 15:20 Nasal Cannula 2.0 28 05/28/19 15:20 Nasal Cannula 2.0 28 05/28/19 14:06 98.6 72 18 112/70 (84) 96 05/28/19 12:00 98.2 72 18 117/64 (81) 100 05/28/19 11:25 Nasal Cannula 2.0 28 05/28/19 11:25 Nasal Cannula 2.0 28 05/28/19 09:00 Nasal Cannula 2.0 Nasal Cannula 2.0 05/28/19 08:00 97.9 85 18 121/69 (86) 99 Intake and Output 05/29/19 05/30/19 19:00 07:00 Intake Total 1755 ml 1255 ml Output Total 2300 ml Balance 1755 ml -1045 ml IV Total 1155 ml 1255 ml Other 600 ml Output Urine Total 2300 ml Labs Test 05/28/19 05:30 05/29/19 05:39 05/30/19 06:00 White Blood Count 3.5 K/UL (4.8-10.8) 3.3 K/UL (4.8-10.8) Red Blood Count 3.15 M/UL (4.70-6.10) 3.16 M/UL (4.70-6.10) Hemoglobin 9.8 G/DL (14.2-18.0) 9.8 G/DL (14.2-18.0) Hematocrit 28.3 % (42.0-52.0) 28.4 % (42.0-52.0) Mean Corpuscular Volume 90 FL (80-99) 90 FL (80-99) Mean Corpuscular Hemoglobin 31.1 PG (27.0-31.0) 31.1 PG (27.0-31.0) Mean Corpuscular Hemoglobin Concent 34.5 G/DL (32.0-36.0) 34.6 G/DL (32.0-36.0) Red Cell Distribution Width 15.1 % (11.6-14.8) 15.1 % (11.6-14.8) Platelet Count 90 K/UL (150-450) 84 K/UL (150-450) Mean Platelet Volume 6.7 FL (6.5-10.1) 7.8 FL (6.5-10.1) Neutrophils (%) (Auto) % (45.0-75.0) % (45.0-75.0) Lymphocytes (%) (Auto) % (20.0-45.0) % (20.0-45.0) Monocytes (%) (Auto) % (1.0-10.0) % (1.0-10.0) Eosinophils (%) (Auto) % (0.0-3.0) % (0.0-3.0) Basophils (%) (Auto) % (0.0-2.0) % (0.0-2.0) Differential Total Cells Counted 100 100 Neutrophils % (Manual) 50 % (45-75) 46 % (45-75) Lymphocytes % (Manual) 30 % (20-45) 29 % (20-45) Monocytes % (Manual) 11 % (1-10) 15 % (1-10) Eosinophils % (Manual) 9 % (0-3) 10 % (0-3) Basophils % (Manual) 0 % (0-2) 0 % (0-2) Band Neutrophils 0 % (0-8) 0 % (0-8) Platelet Estimate Decreased Decreased Platelet Morphology Normal Normal Anisocytosis 1+ 1+ Sodium Level 142 MMOL/L (136-145) 142 MMOL/L (136-145) 141 MMOL/L (136-145) Potassium Level 3.6 MMOL/L (3.5-5.1) 3.7 MMOL/L (3.5-5.1) 3.8 MMOL/L (3.5-5.1) Chloride Level 111 MMOL/L (98-107) 108 MMOL/L (98-107) 108 MMOL/L (98-107) Carbon Dioxide Level 26 MMOL/L (21-32) 27 MMOL/L (21-32) 27 MMOL/L (21-32) Anion Gap 6 mmol/L (5-15) 7 mmol/L (5-15) 6 mmol/L (5-15) Blood Urea Nitrogen 10 mg/dL (7-18) 13 mg/dL (7-18) 12 mg/dL (7-18) Creatinine 0.9 MG/DL (0.55-1.30) 0.8 MG/DL (0.55-1.30) 0.8 MG/DL (0.55-1.30) Estimat Glomerular Filtration Rate > 60 mL/min (>60) > 60 mL/min (>60) > 60 mL/min (>60) Glucose Level 106 MG/DL (74-106) 93 MG/DL (74-106) 91 MG/DL (74-106) Calcium Level 8.0 MG/DL (8.5-10.1) 8.5 MG/DL (8.5-10.1) 8.7 MG/DL (8.5-10.1) Height (Feet): 5 Height (Inches): 10.00 Weight (Pounds): 145 Objective Physical Exam: Vitals: reviewed General Appearance: NAD HEENT: normocephalic, atraumatic Neck: non-tender, normal alignment Respiratory/Chest: normal breath sounds bilaterally Cardiovascular/Chest: normal peripheral pulses, normal rate Abdomen: normal bowel sounds, soft, nontender Extremities: normal range of motion Neuro: ++ anxious Romie Cox MD May 30, 2019 07:19
[2019-05-30 08:00] VITALS: BP 104/61
[2019-05-30] MEDS: Theophylline ER 100mg ORAL SCH ×2 (08:20→20:21)
[2019-05-30] MEDS: Atovaquone 750mg/5ml Susp ORAL SCH ×2 (08:20→17:37)
[2019-05-30] MEDS: Cefepime HCl 1 GM in D5W 55 ML IVPB SCH ×2 (08:21→20:22)
[2019-05-30] MEDS: Heparin 5000 units/ml inj SUBQ SCH ×2 (08:22→20:22)
--- NOTE | 2019-05-30 10:22 | Infectious Diseases Prog Note ---
Assessment/Plan Assessment/Plan Assessment: Septic Shock, SP PNA- r/o PCP Gram positive bacteremia- contaminant Probable UTI -05/24 sp cx C. albicans -05/22 Bcx 04/29 S. warnerii; 05/24Bcx NTD -u/a wbc 10-15, nit neg, leuk +1; ux GBS COLONY COUNT: 40,000 - 50,000 CFU/ML -Influenza PCR neg -CXR: Redemonstration of increased opacity in the right upper lobe which is slightly better aerated. Right central line terminates in the cavoatrial junction. Fever; SP Leukocytosis, SP -CT head: No acute intracranial pathology. Right scalp operative bashir. Parenchymal volume loss, chronic and of likely no acute abnormality. Right ethmoidal and left sphenoid sinus findings suggesting sinusitis. HIV/AIDS- new diagnosis per patient (last tested was 7 years ago) -CD4 54 (7.7%) -RPR, GC/CL, acute hep panel neg GB wall thickening, non-specific -Abd US:Negative for gallstones. There is, however, gallbladder wall thickening. This can be seen with adjacent hepatocellular inflammation, other systemic causes of edema, acalculous acute cholecystitis, and acute cholecystitis due to occult stone disease. Consider hepatobiliary nuclear scan if there is high clinical suspicion Negative for dilated bile ducts Splenomegaly. Mild fullness to the right renal collecting system, nonspecific. Trace right perinephric fluid, nonspecific, can be seen in renal inflammation. Small right pleural effusion. Incidental finding small right renal cyst JALEEL,SP Tachycardia>bradycardia pancytopenia, improved schizophrenia assisted living facility resident Plan: -Continue Cefepime #5 (abx day #11/30-) for pNA -Continue PO Atovaquone #5 (abx d #11/13) empiric for PCP PNA given worsening pancytopenia -f/u PCP DFA -05/26 SP Meropenem #4, Bactrim #3 -05/24 SP IV Amikacin #3, IV vancomcyin #3 -05/23 SP Ertapenem x1 -05/22 SP Zosyn x1 -f/u cx -Monitor CBC/CMP, temperatures -aspiration precautions -f/u repeat Bcx x2 -f/u HIV VL, HIV genotype, PCP DFA -Azithrmoycin ppx for MAC -immigration case worker to assist in finding HIV clinic for patient -f/u CXR Thank you for consulting [facility]. Will continue to follow along with you. Discussed with RN. Subjective Allergies: Coded Allergies: No Known Allergies (Unverified , 05/22/19) Subjective Tm 100 pancytopenia improved at 2l NC Objective Vital Signs Last 24 Hour Vital Signs Date Time Temp Pulse Resp B/P (MAP) Pulse Ox O2 Delivery O2 Flow Rate FiO2 05/30/19 08:00 98.5 70 18 104/61 (75) 96 05/30/19 04:00 98.0 79 20 110/73 (85) 99 05/30/19 00:20 98.0 59 20 100/64 (76) 100 05/29/19 21:00 Nasal Cannula 2.0 Nasal Cannula 2.0 05/29/19 20:33 98.6 66 20 117/74 (88) 100 05/29/19 16:00 98.1 71 19 109/71 (84) 99 05/29/19 12:00 98.1 94 18 148/106 (120) 99 Height (Feet): 5 Height (Inches): 10.00 Weight (Pounds): 145 Objective General Appearance: alert, moderate distress, thin Head: normocephalic, atraumatic Eyes: bilateral eye normal inspection, bilateral eye PERRL ENT: hearing grossly normal, normal pharynx, no angioedema, normal voice Neck: full range of motion, supple, no meningismus, supple/symm/no masses Respiratory: chest non-tender, lungs clear, normal breath sounds, no rhonchi, no wheezing, speaking full sentences Cardiovascular: no murmur, normal capillary refill, tachycardia Gastrointestinal: normal bowel sounds, non tender, soft, non-distended, no guarding, no rebound Genitourinary: normal inspection, no CVA tenderness Musculoskeletal: back normal, digits/nails normal, no calf tenderness Neurologic: alert, oriented Skin: no rash, normal color, diaphoresis Laboratory Tests Test 05/30/19 06:00 White Blood Count 3.6 K/UL (4.8-10.8) L Red Blood Count 3.17 M/UL (4.70-6.10) L Hemoglobin 9.7 G/DL (14.2-18.0) L Hematocrit 28.4 % (42.0-52.0) L Mean Corpuscular Volume 90 FL (80-99) Mean Corpuscular Hemoglobin 30.7 PG (27.0-31.0) Mean Corpuscular Hemoglobin Concent 34.2 G/DL (32.0-36.0) Red Cell Distribution Width 15.7 % (11.6-14.8) H Platelet Count 76 K/UL (150-450) L Mean Platelet Volume 6.5 FL (6.5-10.1) Neutrophils (%) (Auto) % (45.0-75.0) Lymphocytes (%) (Auto) % (20.0-45.0) Monocytes (%) (Auto) % (1.0-10.0) Eosinophils (%) (Auto) % (0.0-3.0) Basophils (%) (Auto) % (0.0-2.0) Neutrophils % (Manual) Pending Lymphocytes % (Manual) Pending Platelet Estimate Pending Platelet Morphology Pending Sodium Level 141 MMOL/L (136-145) Potassium Level 3.8 MMOL/L (3.5-5.1) Chloride Level 108 MMOL/L (98-107) H Carbon Dioxide Level 27 MMOL/L (21-32) Anion Gap 6 mmol/L (5-15) Blood Urea Nitrogen 12 mg/dL (7-18) Creatinine 0.8 MG/DL (0.55-1.30) Estimat Glomerular Filtration Rate > 60 mL/min (>60) Glucose Level 91 MG/DL (74-106) Calcium Level 8.7 MG/DL (8.5-10.1) Current Medications Medications (Trade) Dose Ordered Sig/Ana Route PRN Reason Start Time Stop Time Status Last Admin Dose Admin Acetaminophen (Tylenol) 650 mg Q4H PRN ORAL fever (T>100.5) 05/28/19 14:30 06/21/19 14:29 Atovaquone (Mepron Susp) 750 mg TWICE A DAY ORAL 05/28/19 18:00 06/25/19 17:59 05/30/19 08:20 Azithromycin (Zithromax) 1,200 mg ONCE A WEEK ORAL 06/02/19 18:00 06/02/19 18:01 Cefepime HCl 1 gm/ Dextrose 55 ml @ 110 mls/hr EVERY 12 HOURS IVPB 05/28/19 21:00 06/02/19 20:59 05/30/19 08:21 Chlorhexidine Gluconate (Jessie-Hex 2%) 1 applic DAILY@2000 TOPIC 05/28/19 20:00 06/23/19 19:59 05/29/19 20:21 Heparin Sodium (Porcine) (Heparin 5000 units/ml) 5,000 units EVERY 12 HOURS SUBQ 05/28/19 21:00 06/22/19 08:59 Loperamide HCl (Imodium) 2 mg Q4H PRN ORAL Diarrhea 05/28/19 14:15 06/22/19 14:14 Olanzapine (ZyPREXA) 20 mg BEDTIME ORAL 05/28/19 21:00 06/24/19 20:59 05/29/19 20:22 Ondansetron HCl (Zofran) 4 mg Q6H PRN IVP Nausea & Vomiting 05/28/19 14:30 06/21/19 14:29 05/29/19 15:38 Pantoprazole (Protonix) 40 mg ACBREAKFAST ORAL 05/29/19 06:30 06/25/19 06:29 05/30/19 06:12 Promethazine HCl/ Codeine (Phenergan with Codeine) 5 ml Q4H PRN ORAL For Cough 05/28/19 14:30 06/22/19 14:29 Sodium Chloride 1,000 ml @ 100 mls/hr Q10H IVLG 05/28/19 14:15 06/21/19 23:11 05/30/19 06:10 Theophylline (Nicanor-Dur) 100 mg EVERY 12 HOURS ORAL 05/28/19 21:00 06/22/19 20:59 05/30/19 08:20 Evelia Suarez M.D. May 30, 2019 10:22
--- NOTE | 2019-05-30 11:20 | Pulmonology Progress Note ---
Assessment/Plan Problems: (1) Bacteremia (2) Sepsis (3) Pneumonia (4) Schizophrenia Assessment/Plan all reviewed = afebrile now check cultures sputum c/s abx by ID evaluation tolerating feeding dvt prophylaxis. Subjective ROS Limited/Unobtainable: No Constitutional: Reports: no symptoms HEENT: Repors: no symptoms Allergies: Coded Allergies: No Known Allergies (Unverified , 05/22/19) Objective Last 24 Hour Vital Signs Date Time Temp Pulse Resp B/P (MAP) Pulse Ox O2 Delivery O2 Flow Rate FiO2 05/30/19 08:00 98.5 70 18 104/61 (75) 96 05/30/19 04:00 98.0 79 20 110/73 (85) 99 05/30/19 00:20 98.0 59 20 100/64 (76) 100 05/29/19 21:00 Nasal Cannula 2.0 Nasal Cannula 2.0 05/29/19 20:33 98.6 66 20 117/74 (88) 100 05/29/19 16:00 98.1 71 19 109/71 (84) 99 05/29/19 12:00 98.1 94 18 148/106 (120) 99 Intake and Output 05/29/19 05/30/19 19:00 07:00 Intake Total 1755 ml 1355 ml Output Total 2300 ml Balance 1755 ml -945 ml IV Total 1155 ml 1355 ml Other 600 ml Output Urine Total 2300 ml Objective General Appearance: WD/WN HEENT: normocephalic, anicteric Respiratory/Chest: chest wall non-tender, lungs clear Cardiovascular: normal rate, regular rhythm, no JVD Abdomen: soft, non tender Genitourinary: normal external genitalia Skin: no rash Laboratory Tests 05/30/19 06:00: White Blood Count 3.6L, Red Blood Count 3.17L, Hemoglobin 9.7L, Hematocrit 28.4L , Mean Corpuscular Volume 90, Mean Corpuscular Hemoglobin 30.7, Mean Corpuscular Hemoglobin Concent 34.2, Red Cell Distribution Width 15.7H, Platelet Count 76L, Mean Platelet Volume 6.5, Neutrophils (%) (Auto) , Lymphocytes (%) (Auto) , Monocytes (%) (Auto) , Eosinophils (%) (Auto) , Basophils (%) (Auto) , Differential Total Cells Counted 100, Neutrophils % ( Manual) 60, Lymphocytes % (Manual) 22, Monocytes % (Manual) 10, Eosinophils % ( Manual) 7H, Basophils % (Manual) 1, Band Neutrophils 0, Platelet Estimate DecreasedL, Platelet Morphology Normal, Hypochromasia 2+, Anisocytosis 1+, Sodium Level 141, Potassium Level 3.8, Chloride Level 108H, Carbon Dioxide Level 27, Anion Gap 6, Blood Urea Nitrogen 12, Creatinine 0.8, Estimat Glomerular Filtration Rate > 60, Glucose Level 91, Calcium Level 8.7 Current Medications Medications (Trade) Dose Ordered Sig/Ana Route PRN Reason Start Time Stop Time Status Last Admin Dose Admin Acetaminophen (Tylenol) 650 mg Q4H PRN ORAL fever (T>100.5) 05/28/19 14:30 06/21/19 14:29 Atovaquone (Mepron Susp) 750 mg TWICE A DAY ORAL 05/28/19 18:00 06/25/19 17:59 05/30/19 08:20 Azithromycin (Zithromax) 1,200 mg ONCE A WEEK ORAL 06/02/19 18:00 06/02/19 18:01 Cefepime HCl 1 gm/ Dextrose 55 ml @ 110 mls/hr EVERY 12 HOURS IVPB 05/28/19 21:00 06/02/19 20:59 05/30/19 08:21 Chlorhexidine Gluconate (Jessie-Hex 2%) 1 applic DAILY@2000 TOPIC 05/28/19 20:00 06/23/19 19:59 05/29/19 20:21 Heparin Sodium (Porcine) (Heparin 5000 units/ml) 5,000 units EVERY 12 HOURS SUBQ 05/28/19 21:00 06/22/19 08:59 Loperamide HCl (Imodium) 2 mg Q4H PRN ORAL Diarrhea 05/28/19 14:15 06/22/19 14:14 Olanzapine (ZyPREXA) 20 mg BEDTIME ORAL 05/28/19 21:00 06/24/19 20:59 05/29/19 20:22 Ondansetron HCl (Zofran) 4 mg Q6H PRN IVP Nausea & Vomiting 05/28/19 14:30 06/21/19 14:29 05/29/19 15:38 Pantoprazole (Protonix) 40 mg ACBREAKFAST ORAL 05/29/19 06:30 06/25/19 06:29 05/30/19 06:12 Promethazine HCl/ Codeine (Phenergan with Codeine) 5 ml Q4H PRN ORAL For Cough 05/28/19 14:30 06/22/19 14:29 Sodium Chloride 1,000 ml @ 100 mls/hr Q10H IVLG 05/28/19 14:15 06/21/19 23:11 05/30/19 06:10 Theophylline (Nicanor-Dur) 100 mg EVERY 12 HOURS ORAL 05/28/19 21:00 06/22/19 20:59 05/30/19 08:20 Yung Daniels MD May 30, 2019 11:20
[2019-05-30 12:00] VITALS: BP 101/65
--- NOTE | 2019-05-30 12:01 | Diagnostic Imaging Report ---
Indication: Dyspnea Comparison: 05/22/2019 A single view chest radiograph was obtained. Findings: Right upper lobe reticular densities are noted currently. No consolidation identified. Vague groundglass type density in the right upper lobe is no longer appreciated. A right jugular central line is in good position. Heart size remains normal. IMPRESSION: Mild reticular densities in the right upper lobe. This could be due to atelectasis. Recommend follow-up.
[2019-05-30] MEDS ORDERED: Gadavist 7.5mMol/7.5ml vial IV PRN (12:30)
--- NOTE | 2019-05-30 13:06 | General Progress Note ---
Assessment/Plan Problem List: (1) Pneumonia ICD Codes: J18.9 - Pneumonia, unspecified organism SNOMED: 651282140 (2) Tachycardia ICD Codes: R00.0 - Tachycardia, unspecified SNOMED: 5254670 (3) Sepsis ICD Codes: A41.9 - Sepsis, unspecified organism SNOMED: 75566075 (4) Syncope ICD Codes: R55 - Syncope and collapse SNOMED: 571345073 (5) Schizophrenia ICD Codes: F20.9 - Schizophrenia, unspecified SNOMED: 40683714 Status: stable, progressing Assessment/Plan: o2 pulm tx abc pt diet eval heme eval cbc bmp am dc plan snf Subjective Constitutional: Reports: weakness Allergies: Coded Allergies: No Known Allergies (Unverified , 05/22/19) All Systems: reviewed and negative except above Subjective o2nc calm in bed Objective Last 24 Hour Vital Signs Date Time Temp Pulse Resp B/P (MAP) Pulse Ox O2 Delivery O2 Flow Rate FiO2 05/30/19 08:00 98.5 70 18 104/61 (75) 96 05/30/19 04:00 98.0 79 20 110/73 (85) 99 05/30/19 00:20 98.0 59 20 100/64 (76) 100 05/29/19 21:00 Nasal Cannula 2.0 Nasal Cannula 2.0 05/29/19 20:33 98.6 66 20 117/74 (88) 100 05/29/19 16:00 98.1 71 19 109/71 (84) 99 Intake and Output 05/29/19 05/30/19 19:00 07:00 Intake Total 1755 ml 1355 ml Output Total 2300 ml Balance 1755 ml -945 ml IV Total 1155 ml 1355 ml Other 600 ml Output Urine Total 2300 ml Laboratory Tests 05/30/19 06:00: White Blood Count 3.6L, Red Blood Count 3.17L, Hemoglobin 9.7L, Hematocrit 28.4L , Mean Corpuscular Volume 90, Mean Corpuscular Hemoglobin 30.7, Mean Corpuscular Hemoglobin Concent 34.2, Red Cell Distribution Width 15.7H, Platelet Count 76L, Mean Platelet Volume 6.5, Neutrophils (%) (Auto) , Lymphocytes (%) (Auto) , Monocytes (%) (Auto) , Eosinophils (%) (Auto) , Basophils (%) (Auto) , Differential Total Cells Counted 100, Neutrophils % ( Manual) 60, Lymphocytes % (Manual) 22, Monocytes % (Manual) 10, Eosinophils % ( Manual) 7H, Basophils % (Manual) 1, Band Neutrophils 0, Platelet Estimate DecreasedL, Platelet Morphology Normal, Hypochromasia 2+, Anisocytosis 1+, Sodium Level 141, Potassium Level 3.8, Chloride Level 108H, Carbon Dioxide Level 27, Anion Gap 6, Blood Urea Nitrogen 12, Creatinine 0.8, Estimat Glomerular Filtration Rate > 60, Glucose Level 91, Calcium Level 8.7 Height (Feet): 5 Height (Inches): 10.00 Weight (Pounds): 145 General Appearance: lethargic EENT: normal ENT inspection Neck: normal alignment Cardiovascular: normal peripheral pulses, normal rate, regular rhythm Respiratory/Chest: chest wall non-tender, lungs clear, normal breath sounds Abdomen: normal bowel sounds, non tender, soft Extremities: normal inspection Edema: no edema noted Arm (L), no edema noted Arm (R), no edema noted Leg (L), no edema noted Leg (R), no edema noted Pedal (L), no edema noted Pedal (R), no edema noted Generalized Neurologic: motor weakness Skin: normal pigmentation, warm/dry Junior Hicks DO May 30, 2019 13:06
[2019-05-30 16:00] VITALS: BP 112/69
--- NOTE | 2019-05-30 17:05 | Cardiology Progress Note ---
Assessment/Plan Assessment/Plan 1. Syncope. 2. Sinus tachycardia. 3. Diarrhea. 4. Anemia. 5. Thrombocytopenia. 6. Iron deficiency. 7. Schizophrenia. 8. Staph bacteremia felt to be contaminent per ID all cell count are low trop neg he is very shaky and unsteady per my discussion with rn will repeat orthostatic vital if positive consider either midodrine or florinef heme noted cdiff neg on iv abx ivf to be continued d/w rn Subjective Cardiovascular: Reports: lightheadedness; Denies: chest pain Respiratory: Denies: orthopnea Gastrointestinal/Abdominal: Denies: abdominal pain Genitourinary: Denies: burning Objective Last 24 Hour Vital Signs Date Time Temp Pulse Resp B/P (MAP) Pulse Ox O2 Delivery O2 Flow Rate FiO2 05/30/19 12:00 98.6 74 17 101/65 (77) 99 05/30/19 09:00 Nasal Cannula 2.0 Nasal Cannula 2.0 05/30/19 08:00 98.5 70 18 104/61 (75) 96 05/30/19 04:00 98.0 79 20 110/73 (85) 99 05/30/19 00:20 98.0 59 20 100/64 (76) 100 05/29/19 21:00 Nasal Cannula 2.0 Nasal Cannula 2.0 05/29/19 20:33 98.6 66 20 117/74 (88) 100 General Appearance: no apparent distress, alert Neck: no JVD Cardiovascular: normal rate Respiratory/Chest: lungs clear Abdomen: normal bowel sounds, non tender, soft Extremities: no swelling Intake and Output 05/29/19 05/30/19 19:00 07:00 Intake Total 1755 ml 1355 ml Output Total 2300 ml Balance 1755 ml -945 ml IV Total 1155 ml 1355 ml Other 600 ml Output Urine Total 2300 ml Laboratory Tests Test 05/30/19 06:00 White Blood Count 3.6 K/UL (4.8-10.8) L Red Blood Count 3.17 M/UL (4.70-6.10) L Hemoglobin 9.7 G/DL (14.2-18.0) L Hematocrit 28.4 % (42.0-52.0) L Mean Corpuscular Volume 90 FL (80-99) Mean Corpuscular Hemoglobin 30.7 PG (27.0-31.0) Mean Corpuscular Hemoglobin Concent 34.2 G/DL (32.0-36.0) Red Cell Distribution Width 15.7 % (11.6-14.8) H Platelet Count 76 K/UL (150-450) L Mean Platelet Volume 6.5 FL (6.5-10.1) Neutrophils (%) (Auto) % (45.0-75.0) Lymphocytes (%) (Auto) % (20.0-45.0) Monocytes (%) (Auto) % (1.0-10.0) Eosinophils (%) (Auto) % (0.0-3.0) Basophils (%) (Auto) % (0.0-2.0) Differential Total Cells Counted 100 Neutrophils % (Manual) 60 % (45-75) Lymphocytes % (Manual) 22 % (20-45) Monocytes % (Manual) 10 % (1-10) Eosinophils % (Manual) 7 % (0-3) H Basophils % (Manual) 1 % (0-2) Band Neutrophils 0 % (0-8) Platelet Estimate Decreased L Platelet Morphology Normal Hypochromasia 2+ Anisocytosis 1+ Sodium Level 141 MMOL/L (136-145) Potassium Level 3.8 MMOL/L (3.5-5.1) Chloride Level 108 MMOL/L (98-107) H Carbon Dioxide Level 27 MMOL/L (21-32) Anion Gap 6 mmol/L (5-15) Blood Urea Nitrogen 12 mg/dL (7-18) Creatinine 0.8 MG/DL (0.55-1.30) Estimat Glomerular Filtration Rate > 60 mL/min (>60) Glucose Level 91 MG/DL (74-106) Calcium Level 8.7 MG/DL (8.5-10.1) Devan Ann MD May 30, 2019 17:05
[2019-05-30 20:11] VITALS: BP 132/67
[2019-05-30] MEDS: OLANZapine 10mg tab ORAL SCH (20:21)
[2019-05-30] MEDS: Dyna-Hex 2% Top Sol 2oz TOPIC SCH (20:21)
[2019-05-31 00:36] VITALS: BP 123/75
[2019-05-31 04:35] VITALS: BP 114/52
[2019-05-31 04:37] VITALS: BP 124/71
[2019-05-31 06:32] LABS: HEMATOCRIT 28.1 % (42.0-52.0); HEMOGLOBIN 9.7 G/DL (14.2-18.0); MEAN CORPUSCULAR VOLUME 89 FL (80-99); PLATELET COUNT 58 K/UL (150-450); RED BLOOD COUNT 3.14 M/UL (4.70-6.10); RED CELL DISTRIBUTION WIDTH 15.7 % (11.6-14.8); WHITE BLOOD COUNT 3.5 K/UL (4.8-10.8)
[2019-05-31 06:42] LABS: ANION GAP 9 mmol/L (5-15); BLOOD UREA NITROGEN 10 mg/dL (7-18); CALCIUM 8.9 MG/DL (8.5-10.1); CARBON DIOXIDE 25 MMOL/L (21-32); CHLORIDE 108 MMOL/L (98-107); CREATININE 0.7 MG/DL (0.55-1.30); POTASSIUM 3.6 MMOL/L (3.5-5.1); SODIUM 142 MMOL/L (136-145)
[2019-05-31 08:00] VITALS: BP 124/66
[2019-05-31] MEDS: Heparin 5000 units/ml inj SUBQ SCH (09:00)
[2019-05-31] MEDS: Cefepime HCl 1 GM in D5W 55 ML IVPB SCH (09:38)
[2019-05-31] MEDS: Atovaquone 750mg/5ml Susp ORAL SCH ×2 (09:39→18:45)
[2019-05-31] MEDS: Theophylline ER 100mg ORAL SCH (09:40)
--- NOTE | 2019-05-31 10:09 | General Progress Note ---
Assessment/Plan Problem List: (1) Pneumonia ICD Codes: J18.9 - Pneumonia, unspecified organism SNOMED: 262048262 (2) Tachycardia ICD Codes: R00.0 - Tachycardia, unspecified SNOMED: 9114595 (3) Sepsis ICD Codes: A41.9 - Sepsis, unspecified organism SNOMED: 53749609 (4) Syncope ICD Codes: R55 - Syncope and collapse SNOMED: 913297728 (5) Schizophrenia ICD Codes: F20.9 - Schizophrenia, unspecified SNOMED: 56570377 Status: stable, progressing Assessment/Plan: o2 pulm tx abc pt diet eval heme eval cbc bmp am dc plan snf Subjective Constitutional: Reports: weakness Allergies: Coded Allergies: No Known Allergies (Unverified , 05/22/19) All Systems: reviewed and negative except above Subjective o2nc calm in bed Objective Last 24 Hour Vital Signs Date Time Temp Pulse Resp B/P (MAP) Pulse Ox O2 Delivery O2 Flow Rate FiO2 05/31/19 08:00 98.1 57 17 124/66 (85) 98 05/31/19 04:37 98.7 78 16 124/71 (88) 95 05/31/19 00:36 98.9 76 18 123/75 (91) 96 05/30/19 21:10 Nasal Cannula 2.0 Nasal Cannula 2.0 05/30/19 20:11 99.0 74 17 132/67 (88) 99 05/30/19 16:00 98.5 80 18 112/69 (83) 97 05/30/19 12:00 98.6 74 17 101/65 (77) 99 Intake and Output 05/30/19 05/31/19 19:00 07:00 Intake Total 1855 ml 1735 ml Output Total 950 ml Balance 1855 ml 785 ml Intake Oral 480 ml IV Total 1055 ml 1255 ml Other 800 ml Output Urine Total 950 ml # Voids 5 Laboratory Tests 05/31/19 04:52: White Blood Count 3.5L, Red Blood Count 3.14L, Hemoglobin 9.7L, Hematocrit 28.1L , Mean Corpuscular Volume 89, Mean Corpuscular Hemoglobin 30.8, Mean Corpuscular Hemoglobin Concent 34.5, Red Cell Distribution Width 15.7H, Platelet Count 58L, Mean Platelet Volume 7.0, Neutrophils (%) (Auto) , Lymphocytes (%) (Auto) , Monocytes (%) (Auto) , Eosinophils (%) (Auto) , Basophils (%) (Auto) , Differential Total Cells Counted 100, Neutrophils % ( Manual) 56, Lymphocytes % (Manual) 28, Monocytes % (Manual) 9, Eosinophils % ( Manual) 7H, Basophils % (Manual) 0, Band Neutrophils 0, Platelet Estimate DecreasedL, Platelet Morphology Normal, Anisocytosis 1+, Sodium Level 142, Potassium Level 3.6, Chloride Level 108H, Carbon Dioxide Level 25, Anion Gap 9, Blood Urea Nitrogen 10, Creatinine 0.7, Estimat Glomerular Filtration Rate > 60 , Glucose Level 90, Calcium Level 8.9 Height (Feet): 5 Height (Inches): 10.00 Weight (Pounds): 138 General Appearance: lethargic EENT: normal ENT inspection Neck: normal alignment Cardiovascular: normal peripheral pulses, normal rate, regular rhythm Respiratory/Chest: chest wall non-tender, lungs clear, normal breath sounds Abdomen: normal bowel sounds, non tender, soft Extremities: normal inspection Edema: no edema noted Arm (L), no edema noted Arm (R), no edema noted Leg (L), no edema noted Leg (R), no edema noted Pedal (L), no edema noted Pedal (R), no edema noted Generalized Neurologic: motor weakness Skin: normal pigmentation, warm/dry Junior Hicks DO May 31, 2019 10:09
[2019-05-31 12:00] VITALS: BP 116/66
--- NOTE | 2019-05-31 12:16 | Pulmonology Progress Note ---
Assessment/Plan Assessment/Plan ASSESSMENT Septic shock- resolved Pneumonia Probable UTI Syncopal episode HIV/AIDS, newly diagnosed JALEEL- resolved Pancytopenia Diarrhea Schizophrenia PLAN OF CARE MS floor off pressors closely monitor BP -improving abx as per ID O2 HHN CPT trial of theophylline a/tussive prn DVT prophylaxis CD4 54 RPR, GC/ CL , acute hepatitis panel-all negative started on abx prophylaxis with Mepron and azithromycin as per ID JALEEL resolved, avoid nephrotoxic , replace electrolytes as needed monitor counts likely due to HIV/AIDS heme follows stool C. difficile negative, antidiarrheal prn HIDA scan negative case discussed and evaluated by supervising physician Subjective Allergies: Coded Allergies: No Known Allergies (Unverified , 05/22/19) Subjective counts remained at baseline, afebrile, no signs of resp distress depressed Objective Last 24 Hour Vital Signs Date Time Temp Pulse Resp B/P (MAP) Pulse Ox O2 Delivery O2 Flow Rate FiO2 05/31/19 08:00 98.1 57 17 124/66 (85) 98 05/31/19 04:37 98.7 78 16 124/71 (88) 95 05/31/19 00:36 98.9 76 18 123/75 (91) 96 05/30/19 21:10 Nasal Cannula 2.0 Nasal Cannula 2.0 05/30/19 20:11 99.0 74 17 132/67 (88) 99 05/30/19 16:00 98.5 80 18 112/69 (83) 97 Intake and Output 05/30/19 05/31/19 19:00 07:00 Intake Total 1855 ml 1735 ml Output Total 950 ml Balance 1855 ml 785 ml Intake Oral 480 ml IV Total 1055 ml 1255 ml Other 800 ml Output Urine Total 950 ml # Voids 5 General Appearance: no acute distress, other - A/A/O x3 depressed middle age male HEENT: normocephalic, atraumatic, mucous membranes moist Respiratory/Chest: lungs clear, no respiratory distress, no accessory muscle use Cardiovascular: normal rate Abdomen: normal bowel sounds, soft, non tender Extremities: no edema, pedal pulses normal Neurologic/Psychiatric: no motor/sensory deficits, alert Musculoskeletal: normal muscle bulk Laboratory Tests 05/31/19 04:52: White Blood Count 3.5L, Red Blood Count 3.14L, Hemoglobin 9.7L, Hematocrit 28.1L , Mean Corpuscular Volume 89, Mean Corpuscular Hemoglobin 30.8, Mean Corpuscular Hemoglobin Concent 34.5, Red Cell Distribution Width 15.7H, Platelet Count 58L, Mean Platelet Volume 7.0, Neutrophils (%) (Auto) , Lymphocytes (%) (Auto) , Monocytes (%) (Auto) , Eosinophils (%) (Auto) , Basophils (%) (Auto) , Differential Total Cells Counted 100, Neutrophils % ( Manual) 56, Lymphocytes % (Manual) 28, Monocytes % (Manual) 9, Eosinophils % ( Manual) 7H, Basophils % (Manual) 0, Band Neutrophils 0, Platelet Estimate DecreasedL, Platelet Morphology Normal, Anisocytosis 1+, Sodium Level 142, Potassium Level 3.6, Chloride Level 108H, Carbon Dioxide Level 25, Anion Gap 9, Blood Urea Nitrogen 10, Creatinine 0.7, Estimat Glomerular Filtration Rate > 60 , Glucose Level 90, Calcium Level 8.9 Current Medications Medications (Trade) Dose Ordered Sig/Ana Route PRN Reason Start Time Stop Time Status Last Admin Dose Admin Acetaminophen (Tylenol) 650 mg Q4H PRN ORAL fever (T>100.5) 05/28/19 14:30 06/21/19 14:29 Atovaquone (Mepron Susp) 750 mg TWICE A DAY ORAL 05/28/19 18:00 06/25/19 17:59 05/31/19 09:39 Azithromycin (Zithromax) 1,200 mg ONCE A WEEK ORAL 06/02/19 18:00 06/02/19 18:01 Cefepime HCl 1 gm/ Dextrose 55 ml @ 110 mls/hr EVERY 12 HOURS IVPB 05/28/19 21:00 06/02/19 20:59 05/31/19 09:38 Chlorhexidine Gluconate (Jessie-Hex 2%) 1 applic DAILY@2000 TOPIC 05/28/19 20:00 06/23/19 19:59 05/30/19 20:21 Gadobutrol (Gadavist) 7.5 mmol NOW PRN IV Radiology Procedure 05/30/19 12:30 06/03/19 12:21 Heparin Sodium (Porcine) (Heparin 5000 units/ml) 5,000 units EVERY 12 HOURS SUBQ 05/28/19 21:00 06/22/19 08:59 Loperamide HCl (Imodium) 2 mg Q4H PRN ORAL Diarrhea 05/28/19 14:15 06/22/19 14:14 Olanzapine (ZyPREXA) 20 mg BEDTIME ORAL 05/28/19 21:00 06/24/19 20:59 05/30/19 20:21 Ondansetron HCl (Zofran) 4 mg Q6H PRN IVP Nausea & Vomiting 05/28/19 14:30 06/21/19 14:29 05/29/19 15:38 Pantoprazole (Protonix) 40 mg ACBREAKFAST ORAL 05/29/19 06:30 06/25/19 06:29 05/31/19 05:35 Promethazine HCl/ Codeine (Phenergan with Codeine) 5 ml Q4H PRN ORAL For Cough 05/28/19 14:30 06/22/19 14:29 Sodium Chloride 1,000 ml @ 100 mls/hr Q10H IVLG 05/28/19 14:15 06/21/19 23:11 05/31/19 03:57 Theophylline (Nicanor-Dur) 100 mg EVERY 12 HOURS ORAL 05/28/19 21:00 06/22/19 20:59 05/31/19 09:40 Maria Fernanda Cunningham [employer]PER[employer] May 31, 2019 12:16
[2019-05-31] MEDS ORDERED: Albuterol/Ipratropium 3ml neb HHN PRN (12:30)
--- NOTE | 2019-05-31 12:50 | Infectious Diseases Prog Note ---
Assessment/Plan Assessment/Plan Assessment: Septic Shock, SP PNA -05/30 CXR: Right upper lobe reticular densities are noted currently. No consolidation identified. Vague groundglass type density in the right upper lobe is no longer appreciated. -PCP DFA NEG Gram positive bacteremia- contaminant Probable UTI -05/24 sp cx C. albicans -05/22 Bcx 04/29 S. warnerii; 05/24Bcx Ng; 05/26 Bcx NTD -u/a wbc 10-15, nit neg, leuk +1; ux GBS COLONY COUNT: 40,000 - 50,000 CFU/ML -Influenza PCR neg -CXR: Redemonstration of increased opacity in the right upper lobe which is slightly better aerated. Right central line terminates in the cavoatrial junction. Fever; SP Leukocytosis, SP> leukopenia -CT head: No acute intracranial pathology. Right scalp operative bashir. Parenchymal volume loss, chronic and of likely no acute abnormality. Right ethmoidal and left sphenoid sinus findings suggesting sinusitis. HIV/AIDS- new diagnosis per patient (last tested was 7 years ago) -CD4 54 (7.7%), VL 428k copies -RPR, GC/CL, acute hep panel neg GB wall thickening, non-specific -Abd US:Negative for gallstones. There is, however, gallbladder wall thickening. This can be seen with adjacent hepatocellular inflammation, other systemic causes of edema, acalculous acute cholecystitis, and acute cholecystitis due to occult stone disease. Consider hepatobiliary nuclear scan if there is high clinical suspicion Negative for dilated bile ducts Splenomegaly. Mild fullness to the right renal collecting system, nonspecific. Trace right perinephric fluid, nonspecific, can be seen in renal inflammation. Small right pleural effusion. Incidental finding small right renal cyst JALEEL,SP Tachycardia>bradycardia pancytopenia, improved schizophrenia assisted living facility resident Plan: -Continue Cefepime #6 (abx day #01/03) for pNA -Continue PO Atovaquone #6 (abx d #12/14) empiric for PCP PNA -after 21 days, transition to 1500mg qd for PCP ppx -05/26 SP Meropenem #4, Bactrim #3 -05/24 SP IV Amikacin #3, IV vancomcyin #3 -05/23 SP Ertapenem x1 -05/22 SP Zosyn x1 -f/u cx -Monitor CBC/CMP, temperatures -aspiration precautions -f/u repeat Bcx x2 -f/u HIV genotype -Azithrmoycin ppx for MAC -correctional case records supervisor to assist in finding HIV clinic for patient Thank you for consulting [facility]. Will continue to follow along with you. Discussed with RN. Subjective Allergies: Coded Allergies: No Known Allergies (Unverified , 05/22/19) Subjective afebrile at 2l NC Objective Vital Signs Last 24 Hour Vital Signs Date Time Temp Pulse Resp B/P (MAP) Pulse Ox O2 Delivery O2 Flow Rate FiO2 05/31/19 08:00 98.1 57 17 124/66 (85) 98 05/31/19 04:37 98.7 78 16 124/71 (88) 95 05/31/19 00:36 98.9 76 18 123/75 (91) 96 05/30/19 21:10 Nasal Cannula 2.0 Nasal Cannula 2.0 05/30/19 20:11 99.0 74 17 132/67 (88) 99 05/30/19 16:00 98.5 80 18 112/69 (83) 97 Height (Feet): 5 Height (Inches): 10.00 Weight (Pounds): 138 Objective General Appearance: alert, moderate distress, thin Head: normocephalic, atraumatic Eyes: bilateral eye normal inspection, bilateral eye PERRL ENT: hearing grossly normal, normal pharynx, no angioedema, normal voice Neck: full range of motion, supple, no meningismus, supple/symm/no masses Respiratory: chest non-tender, lungs clear, normal breath sounds, no rhonchi, no wheezing, speaking full sentences Cardiovascular: no murmur, normal capillary refill, tachycardia Gastrointestinal: normal bowel sounds, non tender, soft, non-distended, no guarding, no rebound Genitourinary: normal inspection, no CVA tenderness Musculoskeletal: back normal, digits/nails normal, no calf tenderness Neurologic: alert, oriented Skin: no rash, normal color, diaphoresis Laboratory Tests Test 05/31/19 04:52 White Blood Count 3.5 K/UL (4.8-10.8) L Red Blood Count 3.14 M/UL (4.70-6.10) L Hemoglobin 9.7 G/DL (14.2-18.0) L Hematocrit 28.1 % (42.0-52.0) L Mean Corpuscular Volume 89 FL (80-99) Mean Corpuscular Hemoglobin 30.8 PG (27.0-31.0) Mean Corpuscular Hemoglobin Concent 34.5 G/DL (32.0-36.0) Red Cell Distribution Width 15.7 % (11.6-14.8) H Platelet Count 58 K/UL (150-450) L Mean Platelet Volume 7.0 FL (6.5-10.1) Neutrophils (%) (Auto) % (45.0-75.0) Lymphocytes (%) (Auto) % (20.0-45.0) Monocytes (%) (Auto) % (1.0-10.0) Eosinophils (%) (Auto) % (0.0-3.0) Basophils (%) (Auto) % (0.0-2.0) Differential Total Cells Counted 100 Neutrophils % (Manual) 56 % (45-75) Lymphocytes % (Manual) 28 % (20-45) Monocytes % (Manual) 9 % (1-10) Eosinophils % (Manual) 7 % (0-3) H Basophils % (Manual) 0 % (0-2) Band Neutrophils 0 % (0-8) Platelet Estimate Decreased L Platelet Morphology Normal Anisocytosis 1+ Sodium Level 142 MMOL/L (136-145) Potassium Level 3.6 MMOL/L (3.5-5.1) Chloride Level 108 MMOL/L (98-107) H Carbon Dioxide Level 25 MMOL/L (21-32) Anion Gap 9 mmol/L (5-15) Blood Urea Nitrogen 10 mg/dL (7-18) Creatinine 0.7 MG/DL (0.55-1.30) Estimat Glomerular Filtration Rate > 60 mL/min (>60) Glucose Level 90 MG/DL (74-106) Calcium Level 8.9 MG/DL (8.5-10.1) Current Medications Medications (Trade) Dose Ordered Sig/Ana Route PRN Reason Start Time Stop Time Status Last Admin Dose Admin Acetaminophen (Tylenol) 650 mg Q4H PRN ORAL fever (T>100.5) 05/28/19 14:30 06/21/19 14:29 Albuterol/ Ipratropium (Albuterol/ Ipratropium) 3 ml Q4H PRN HHN Shortness of Breath 05/31/19 12:30 06/05/19 12:29 Atovaquone (Mepron Susp) 750 mg TWICE A DAY ORAL 05/28/19 18:00 06/25/19 17:59 05/31/19 09:39 Azithromycin (Zithromax) 1,200 mg ONCE A WEEK ORAL 06/02/19 18:00 06/02/19 18:01 Cefepime HCl 1 gm/ Dextrose 55 ml @ 110 mls/hr EVERY 12 HOURS IVPB 05/28/19 21:00 06/02/19 20:59 05/31/19 09:38 Chlorhexidine Gluconate (Jessie-Hex 2%) 1 applic DAILY@2000 TOPIC 05/28/19 20:00 06/23/19 19:59 05/30/19 20:21 Gadobutrol (Gadavist) 7.5 mmol NOW PRN IV Radiology Procedure 05/30/19 12:30 06/03/19 12:21 Heparin Sodium (Porcine) (Heparin 5000 units/ml) 5,000 units EVERY 12 HOURS SUBQ 05/28/19 21:00 06/22/19 08:59 Loperamide HCl (Imodium) 2 mg Q4H PRN ORAL Diarrhea 05/28/19 14:15 06/22/19 14:14 Olanzapine (ZyPREXA) 20 mg BEDTIME ORAL 05/28/19 21:00 06/24/19 20:59 05/30/19 20:21 Ondansetron HCl (Zofran) 4 mg Q6H PRN IVP Nausea & Vomiting 05/28/19 14:30 06/21/19 14:29 05/29/19 15:38 Pantoprazole (Protonix) 40 mg ACBREAKFAST ORAL 05/29/19 06:30 06/25/19 06:29 05/31/19 05:35 Promethazine HCl/ Codeine (Phenergan with Codeine) 5 ml Q4H PRN ORAL For Cough 05/28/19 14:30 06/22/19 14:29 Sodium Chloride 1,000 ml @ 100 mls/hr Q10H IVLG 05/28/19 14:15 06/21/19 23:11 05/31/19 12:44 Theophylline (Nicanor-Dur) 100 mg EVERY 12 HOURS ORAL 05/28/19 21:00 06/22/19 20:59 05/31/19 09:40 Evelia Suarez M.D. May 31, 2019 12:50
--- NOTE | 2019-05-31 14:29 | Hematology/Onc Progress Note ---
Assessment/Plan Assessment/Plan Assessment and Recs: # Thrombocytopenia - potential causes multifactorial, evaluate liver and viral etiologies to begin, in this case HIV++ being w/u by id, also with pna being treated --> Hep panel and HIV ++ and rx for id --> US abd to evaluate for cirrhosis and hsm ordered - positive for splenomegaly --> Peripheral smear ordered to evaluate for blasts /schistocytes --> is wnl --> abx and other meds have been reviewed --> ok for ppx if plt >50k w/ either heparin or lovenox --> Transfuse if Plt < 20k and fever, or if Plt < 10k without fever --> plt trend 90-->64-->54k-->68-->90-->84->58k --> Rule out DIC and treat underlying cause # Anemia of chronic disease due to underlying chronic medical issues, multifactorial v Gi bleed --> Anemia workup has been ordered, rule out gi bleed --> No evidence of hemolysis is noted, peripheral smear has been reviewed. --> Hgb goal >7. Transfuse prn. --> Epogen or iron at this time is not particularly indicated --> Medications have been reviewed --> low threshold for gi evaluation in case has occult + --> iron 5, tibc 157, ferritin >800 --> hgb trend: 8.4-->9.8 -->9.7 # Sepsis --> likely due to pna --> HIV workup --> on abx: bactrim/coral --> off pressors # Syncope # Tachycardia # Schizophrenia Appreciate consultation and gale RN Subjective Constitutional: Denies: no symptoms, chills, fever, malaise, weakness, other HEENT: Denies: no symptoms, eye pain, blurred vision, tearing, double vision, ear pain, ear discharge, nose pain, nose congestion, throat pain, throat swelling, mouth pain, mouth swelling, other Cardiovascular: Denies: no symptoms, chest pain, edema, irregular heart rate, lightheadedness, palpitations, syncope, other Neurologic/Psychiatric: Denies: no symptoms, anxiety, depressed, emotional problems, headache, numbness, paresthesia, pre-existing deficit, seizure, tingling, tremors, weakness, other Endocrine: Denies: no symptoms, excessive sweating, flushing, intolerance to cold, intolerance to heat, increased hunger, increased thirst, increased urine, unexplained weight gain, unexplained weight loss, other Hematologic/Lymphatic: Denies: no symptoms, anemia, easy bleeding, easy bruising, adenopathy, other Allergies: Coded Allergies: No Known Allergies (Unverified , 05/22/19) Subjective 05/25: no acute distress, us abd shows splenomegaly, labs reviewed, nc 2l 05/26: labs have been reviewed, no night sweats, imaging is noted 05/28: no acute events, labs reviewed, remains on abx 05/29: no bleeding or chills, no night sweats, no major changes 05/30: no major changes, no bleeding or night sweats, labs from am pending 05/31: no bleeding, no night sweats, meds noted wbc remains low 3.5 Objective Objective Current Medications Medications (Trade) Dose Ordered Sig/Aan Route PRN Reason Start Time Stop Time Status Last Admin Dose Admin Acetaminophen (Tylenol) 650 mg Q4H PRN ORAL fever (T>100.5) 05/28/19 14:30 06/21/19 14:29 Albuterol/ Ipratropium (Albuterol/ Ipratropium) 3 ml Q4H PRN HHN Shortness of Breath 05/31/19 12:30 06/05/19 12:29 Atovaquone (Mepron Susp) 750 mg TWICE A DAY ORAL 05/28/19 18:00 06/25/19 17:59 05/31/19 09:39 Azithromycin (Zithromax) 1,200 mg ONCE A WEEK ORAL 06/02/19 18:00 06/02/19 18:01 Cefepime HCl 1 gm/ Dextrose 55 ml @ 110 mls/hr EVERY 12 HOURS IVPB 05/28/19 21:00 06/02/19 20:59 05/31/19 09:38 Chlorhexidine Gluconate (Jessie-Hex 2%) 1 applic DAILY@2000 TOPIC 05/28/19 20:00 06/23/19 19:59 05/30/19 20:21 Gadobutrol (Gadavist) 7.5 mmol NOW PRN IV Radiology Procedure 05/30/19 12:30 06/03/19 12:21 Heparin Sodium (Porcine) (Heparin 5000 units/ml) 5,000 units EVERY 12 HOURS SUBQ 05/28/19 21:00 06/22/19 08:59 Loperamide HCl (Imodium) 2 mg Q4H PRN ORAL Diarrhea 05/28/19 14:15 06/22/19 14:14 Olanzapine (ZyPREXA) 20 mg BEDTIME ORAL 05/28/19 21:00 06/24/19 20:59 05/30/19 20:21 Ondansetron HCl (Zofran) 4 mg Q6H PRN IVP Nausea & Vomiting 05/28/19 14:30 06/21/19 14:29 05/29/19 15:38 Pantoprazole (Protonix) 40 mg ACBREAKFAST ORAL 05/29/19 06:30 06/25/19 06:29 05/31/19 05:35 Promethazine HCl/ Codeine (Phenergan with Codeine) 5 ml Q4H PRN ORAL For Cough 05/28/19 14:30 06/22/19 14:29 Sodium Chloride 1,000 ml @ 100 mls/hr Q10H IVLG 05/28/19 14:15 06/21/19 23:11 05/31/19 12:44 Theophylline (Nicanor-Dur) 100 mg EVERY 12 HOURS ORAL 05/28/19 21:00 06/22/19 20:59 05/31/19 09:40 Last 24 Hour Vital Signs Date Time Temp Pulse Resp B/P (MAP) Pulse Ox O2 Delivery O2 Flow Rate FiO2 05/31/19 12:00 98.6 69 17 116/66 (83) 96 05/31/19 09:00 Nasal Cannula 2.0 Nasal Cannula 2.0 05/31/19 08:00 98.1 57 17 124/66 (85) 98 05/31/19 04:37 98.7 78 16 124/71 (88) 95 05/31/19 00:36 98.9 76 18 123/75 (91) 96 05/30/19 21:10 Nasal Cannula 2.0 Nasal Cannula 2.0 05/30/19 20:11 99.0 74 17 132/67 (88) 99 05/30/19 16:00 98.5 80 18 112/69 (83) 97 05/30/19 12:00 98.6 74 17 101/65 (77) 99 05/30/19 09:00 Nasal Cannula 2.0 Nasal Cannula 2.0 05/30/19 08:00 98.5 70 18 104/61 (75) 96 05/30/19 04:00 98.0 79 20 110/73 (85) 99 05/30/19 00:20 98.0 59 20 100/64 (76) 100 05/29/19 21:00 Nasal Cannula 2.0 Nasal Cannula 2.0 05/29/19 20:33 98.6 66 20 117/74 (88) 100 05/29/19 16:00 98.1 71 19 109/71 (84) 99 Intake and Output 05/30/19 05/31/19 19:00 07:00 Intake Total 1855 ml 1735 ml Output Total 950 ml Balance 1855 ml 785 ml Intake Oral 480 ml IV Total 1055 ml 1255 ml Other 800 ml Output Urine Total 950 ml # Voids 5 Labs Test 05/29/19 05:39 05/30/19 06:00 05/31/19 04:52 White Blood Count 3.3 K/UL (4.8-10.8) 3.6 K/UL (4.8-10.8) 3.5 K/UL (4.8-10.8) Red Blood Count 3.16 M/UL (4.70-6.10) 3.17 M/UL (4.70-6.10) 3.14 M/UL (4.70-6.10) Hemoglobin 9.8 G/DL (14.2-18.0) 9.7 G/DL (14.2-18.0) 9.7 G/DL (14.2-18.0) Hematocrit 28.4 % (42.0-52.0) 28.4 % (42.0-52.0) 28.1 % (42.0-52.0) Mean Corpuscular Volume 90 FL (80-99) 90 FL (80-99) 89 FL (80-99) Mean Corpuscular Hemoglobin 31.1 PG (27.0-31.0) 30.7 PG (27.0-31.0) 30.8 PG (27.0-31.0) Mean Corpuscular Hemoglobin Concent 34.6 G/DL (32.0-36.0) 34.2 G/DL (32.0-36.0) 34.5 G/DL (32.0-36.0) Red Cell Distribution Width 15.1 % (11.6-14.8) 15.7 % (11.6-14.8) 15.7 % (11.6-14.8) Platelet Count 84 K/UL (150-450) 76 K/UL (150-450) 58 K/UL (150-450) Mean Platelet Volume 7.8 FL (6.5-10.1) 6.5 FL (6.5-10.1) 7.0 FL (6.5-10.1) Neutrophils (%) (Auto) % (45.0-75.0) % (45.0-75.0) % (45.0-75.0) Lymphocytes (%) (Auto) % (20.0-45.0) % (20.0-45.0) % (20.0-45.0) Monocytes (%) (Auto) % (1.0-10.0) % (1.0-10.0) % (1.0-10.0) Eosinophils (%) (Auto) % (0.0-3.0) % (0.0-3.0) % (0.0-3.0) Basophils (%) (Auto) % (0.0-2.0) % (0.0-2.0) % (0.0-2.0) Differential Total Cells Counted 100 100 100 Neutrophils % (Manual) 46 % (45-75) 60 % (45-75) 56 % (45-75) Lymphocytes % (Manual) 29 % (20-45) 22 % (20-45) 28 % (20-45) Monocytes % (Manual) 15 % (1-10) 10 % (1-10) 9 % (1-10) Eosinophils % (Manual) 10 % (0-3) 7 % (0-3) 7 % (0-3) Basophils % (Manual) 0 % (0-2) 1 % (0-2) 0 % (0-2) Band Neutrophils 0 % (0-8) 0 % (0-8) 0 % (0-8) Platelet Estimate Decreased Decreased Decreased Platelet Morphology Normal Normal Normal Anisocytosis 1+ 1+ 1+ Sodium Level 142 MMOL/L (136-145) 141 MMOL/L (136-145) 142 MMOL/L (136-145) Potassium Level 3.7 MMOL/L (3.5-5.1) 3.8 MMOL/L (3.5-5.1) 3.6 MMOL/L (3.5-5.1) Chloride Level 108 MMOL/L (98-107) 108 MMOL/L (98-107) 108 MMOL/L (98-107) Carbon Dioxide Level 27 MMOL/L (21-32) 27 MMOL/L (21-32) 25 MMOL/L (21-32) Anion Gap 7 mmol/L (5-15) 6 mmol/L (5-15) 9 mmol/L (5-15) Blood Urea Nitrogen 13 mg/dL (7-18) 12 mg/dL (7-18) 10 mg/dL (7-18) Creatinine 0.8 MG/DL (0.55-1.30) 0.8 MG/DL (0.55-1.30) 0.7 MG/DL (0.55-1.30) Estimat Glomerular Filtration Rate > 60 mL/min (>60) > 60 mL/min (>60) > 60 mL/min (>60) Glucose Level 93 MG/DL (74-106) 91 MG/DL (74-106) 90 MG/DL (74-106) Calcium Level 8.5 MG/DL (8.5-10.1) 8.7 MG/DL (8.5-10.1) 8.9 MG/DL (8.5-10.1) Hypochromasia 2+ Height (Feet): 5 Height (Inches): 10.00 Weight (Pounds): 138 Objective Physical Exam: Vitals: reviewed General Appearance: NAD HEENT: normocephalic, atraumatic Neck: non-tender, normal alignment Respiratory/Chest: normal breath sounds bilaterally Cardiovascular/Chest: rr, no mgr Abdomen: normal bowel sounds, soft, nontender Extremities: normal range of motion Neuro: ++ anxious Romie Cox MD May 31, 2019 14:29
[2019-05-31 16:00] VITALS: BP 117/63
[2019-05-31] MEDS ORDERED: ACETAMINOPHEN325 M1 ORAL (18:07)
[2019-05-31] MEDS ORDERED: ATOVAQUONE750 MG/5 M PO (18:08)
[2019-05-31] MEDS ORDERED: AZITHROMYCIN500 MG ORAL (18:10)
[2019-05-31] MEDS ORDERED: MAXIPIME IVPB (18:11)
[2019-05-31] MEDS ORDERED: HIBICLENS118 ML TP (18:12)
[2019-05-31] MEDS ORDERED: PROMETHAZINE-C118 M1 ORAL (18:14)
[2019-05-31] MEDS ORDERED: HEPARIN SO5000 UNIT2 SUBQ (18:22)
[2019-05-31] MEDS ORDERED: DUONEB 0.5-3(2.53 ML HHN (18:25)
[2019-05-31] MEDS ORDERED: ZOFRAN 4 MG4 MG/2 ML IV (18:26)
[2019-05-31] MEDS ORDERED: LOPERAMIDE2 MG PO (18:26)
[2019-05-31] MEDS ORDERED: THEOPHYLLINE A100 MG ORAL (18:27)
[2019-05-31] MEDS ORDERED: PANTOPRAZOLE SO40 MG ORAL (18:27)
[2019-05-31] MEDS ORDERED: NS 275ml ONE (21:49)
--- NOTE | 2019-06-01 | Progress Note ---
DATE: 05/31/2019 SUBJECTIVE: The patient is in bed. No acute distress noted. Able to answer the question. Episodes of anxiety. physical therapy, improving gradually. MENTAL STATUS EXAMINATION: Alert and oriented times self, place, and situation. Mood is neutral. Affect is full range. Thought process is linear and goal oriented. Thought content, no suicidal or homicidal ideation. Cognition is intact. Insight and judgment is fair. ASSESSMENT: Schizophrenia. PLAN: 1. Zyprexa 20 mg at bedtime. 2. Ativan p.o. 3. Provide the patient with reality orientation and supportive therapy. Corona King M.D. DR: DANA JOB#: [id number] CC: [email or web address]
--- NOTE | 2019-06-01 09:34 | Diagnostic Imaging Report ---
Indication: Dizziness vertigo Technique: The head was imaged in a 1.5 Rubi magnet. Sequences obtained include sagittal and axial T1 FLAIR, axial T2 fast spin echo with fat saturation, axial T2 FLAIR, diffusion and ADC map. Gadolinium-enhanced axial and coronal T1 FLAIR obtained also. Comparison: None Findings: There is mild prominence of the sulci, ventricles, and basal cisterns consistent with atrophy. No abnormal enhancement is identified. There is no restricted diffusion. Alvarado-white differentiation is normal. There is no mass effect, midline shift, edema, or hemorrhage. There are no abnormal extra-axial or intra-axial fluid collections. The corpus callosum and sella are unremarkable. The brainstem and cerebellum are unremarkable. Bone marrow signal within the visualized osseous structures appears age appropriate and unremarkable otherwise. Impression: No acute intracranial findings. Mild atrophy of the brain. The area of the IACs appear grossly normal. However this study was not specifically protocoled for evaluation of the IACs, which is suggested given the history of dizziness/vertigo.
[2019-06-02] MEDS ORDERED: Azithromycin 600mg Tab ORAL SCH (18:00)
--- NOTE | 2019-06-05 15:38 | Discharge Summary ---
Discharge Summary Discharge Summary _ DATE OF ADMISSION: 05/22/2019 DATE OF DISCHARGE: 05/31/2019 DISCHARGED BY: Dr. Hicks REASON FOR ADMISSION: 44 years old male with history of schizophrenia, who lives in assisted living, was brought by paramedics due to two episodes of syncope , one of them earlier that day and one - 1 week prior . Upon presentation patient was tachycardic with rate 130 and febrile with temperature 103.0. Blood pressure was 80/40 . Laboratory work-up revealed leukocytosis ,hemoglobin 10.6, hematocrit 30.9 , platelet count 90. Troponin negative, proBNP 1128. Urinalysis revealed +1 protein + leukocyte esterase. Pyuria and many bacteria. Urine toxicology screen was negative. Lactic acid 1.9. Potassium 3.4. BUN 15, creatinine 1.4. Glucose 111. Stable LFT. Albumin 3.2. EKG revealed sinus tachycardia , no acute ischemic changes. Chest x-ray revealed right upper lobe pneumonia. CT of the head demonstrated right parietal scalp laceration , but no evidence of acute intracranial bleeding or mass-effect. Patient pancultured ,started on empiric antibiotics, central line was placed . Patient subsequently admitted for further management CONSULTANTS: unix architect Dr. Ann pulmonary Dr. Daniels ID specialist Dr. Suarez healthcare administrator/oncologist Dr. Cox psychiatrist [facility] COURSE: Patient started on IV fluids and empiric antibiotics. Patient initially required pressors for hemodynamic support, which titrated to keep mean arterial blood pressure above 65. Patient was able to be weaned off pressors. Blood pressure was closely monitored and was improving. Supplemental oxygen provided and titrated to keep oximetry above 92%. Bronchodilator treatment via HHN provided. Chest physical therapy initiated as well. Patient started on trial of theophylline. Antitussive provided as needed. DVT prophylaxis provided. Blood culture initially revealed Staph warneri. Influenza swab was negative. Urine culture revealed Strep agalactiae group B. Stool for C. difficile was negative. Repeated blood culture on 05/24 were negative. Antibiotic provided as per ID specialist recommendation. Patient was pancytopenic. RPR was nonreactive . Hepatitis panel was negative. Rapid HIV test was positive. Chlamydia and Gonorrhea were both negative. T cell lymphocyte subset revealed CD4 count of 54. Patient denied being prior diagnosed with HIV/AIDS. He was last checked about 7 years ago (as per patient) and was negative. Patient started on antibiotic for PNA as per ID specialist recommendations. Follow-up chest x-ray showed mild reticular density in the right upper lobe. Leukocytosis resolved , patient had leukopenia. Fevers resolved. Sputum culture showed Dione. PCP DFA was negative. Additional repeated blood cultures were negative. Patient was continued on azithromycin prophylaxis for MAC. Infectious disease recommended to follow-up with HIV genotype and start HAART therapy. Patient was on Mepron empirically for PCP pneumonia . After 21day transition to 1500 mg every day for PCP prophylaxis. Per ID specialist blood culture positive with Staph warneri was likely contaminant. Counts were closely monitored , pancytopenia was most likely due to HIV/AIDS. Antidiarrheal provided as needed. Abdominal ultrasound revealed no evidence of gallstones, no evidence of dilated bile duct. However gallbladder wall was noted to be thickened , acute cholecystitis due to occult stone could not be ruled out. Patient subsequently a had a HIDA scan , which was negative. MRI of the brain revealed no acute intracranial pathology. Mild atrophy of the brain was noted. Renal parameters and electrolytes were closely monitored. Electrolytes corrected as needed , nephrotoxins were avoided. Acute kidney injury resolved. Prior to discharge creatinine from 1.4 down to 0.7. Hemoglobin and hematocrit were closely monitored with goal to keep hemoglobin above 7 , and remained at the baseline . Prior to discharge hemoglobin 9.7 ,hematocrit 28.1. Stool for occult blood was negative. Platelet count trending down, and prior to discharge 58. WBC 3.5. Golf Superintendent followed. All troponin were negative , ECG revealed no acute ischemic changes. Patient was ruled out for acute myocardial infarction . Orthostatic vital signs revealed no evidence of orthostatic changes. Psychiatric medication regimen optimized. Patient was provided with reality orientation and supportive therapy. Patient clinically stabilized and was ready for transfer to [facility] facility, which was found and secured, for continuation of care. FINAL DIAGNOSES: Septic shock resolved Sepsis Pneumonia Probably UTI Syncopal episode Sinus tachycardia-resolved HIV/AIDS , newly diagnosed JALEEL -resolved Pancytopenia Diarrhea Schizophrenia DISCHARGE MEDICATIONS: See Medication Reconciliation list. DISCHARGE INSTRUCTIONS: Patient was discharged to the [facility] facility. Follow up with medical doctor at the facility. patient will need to establish HIV provider, check HIV genotype and consider initiating HAART therapy. I have been assigned to dictate discharge summary for this account. I was not involved in the patient's management. Maria Fernanda Cunningham NP Jun 05, 2019 15:38
== END 2019-05-31 21:50 | DRG 974 ==
LOC: EDBD 18:23 → EMR 18:40 → EDBEDREQSVC 21:16 → EDBEDREQ 21:16 → EDBEDREQSVC 22:38 → ICU 23:59 → EDBEDREQ 05-23 03:56 → 2E 05-23 17:34 → 4E 05-28 14:02
PROC: 05HM33Z Insertion of Infusion Device into Right Internal Jugular Vein, Percutaneous Approach (ICD-10-PCS; principal; 2019-05-22)
DX: A41.9 Sepsis, unspecified organism (principal); R65.21 Severe sepsis with septic shock; B20 Human immunodeficiency virus [HIV] disease; J18.9 Pneumonia, unspecified organism; N17.9 Acute kidney failure, unspecified; N39.0 Urinary tract infection, site not specified; E46 Unspecified protein-calorie malnutrition; J98.11 Atelectasis; D61.818 Other pancytopenia; G93.40 Encephalopathy, unspecified; F20.9 Schizophrenia, unspecified; F41.0 Panic disorder [episodic paroxysmal anxiety]; D69.6 Thrombocytopenia, unspecified; D64.9 Anemia, unspecified; R19.7 Diarrhea, unspecified
CPT/HCPCS: 36415; 36600; 70450; 70553; 71045; 76700; 78266; 80048; 80053; 80150; 80202; 80307; 81003; 82248; 82270; 82378; 82550; 82607; 82728; 82746; 82803; 82962; 83540; 83550; 83605; 83615; 83735; 83880; 84100; 84443; 84484; 85007; 85025; 85044; 85060; 85610; 85651; 85730; 86140; 86360; 86592; 86689; 86703; 86705; 86709; 86710; 86803; 87040; 87070; 87086; 87181; 87205; 87324; 87340; 87491; 87535; 87536; 87590; 93005; 93306; 94664; 96361; 96365; 96367; 96375; 99291; A9585; J2405; J7030; J8499